=== PATIENT | male | born 1960 | race Caucasian/White ===

== ENCOUNTER 2023-08-27 02:30 | Observation (INO) | payer MEDICARE, SELFPAY ==
[2023-08-27] VITALS (12 sets, daily range): BP systolic 129–181; BP diastolic 70–99; PULSE 77; O2SAT 98; BMI 33.5; BMI 31.8
[2023-08-27 00:45] LABS: Glucose - Point of Care 172 mg/dl (70-99)
[2023-08-27 00:57] LABS: % Basophils 0.6 % (0-2); % Eosinophils 2.1 % (0-6); % Immature Granulocytes 0.6 % (0-0.5); % Lymphocytes 33.4 % (20.5-51.1); % Monocytes 11.6 % (1.7-9.3); % Neutrophils 51.7 % (42.2-75.2); Absolute Eosinophils 0.1 10^3/uL (0-0.7); Absolute Lymphocytes 2.3 10^3/uL (1.2-3.4); Absolute Monocytes 0.8 10^3/uL (0.1-0.6); Absolute Neutrophils 3.5 10^3/uL (1.4-6.5); Hematocrit 46.3 % (39.0-52.0); Hemoglobin 15.7 g/dL (13.0-18.0); Mean Corp Hgb Conc. 33.9 g/dL (33.0-37.0); Mean Corpuscular Hgb 30.4 pg (27.0-31.0); Mean Corpuscular Volume 89.7 fL (80.0-94.0); Mean Platelet Volume 10.6 fL (7.4-10.4); Nucleated Red Blood Cells % 0 % (-); Platelet Count 200 10^3/uL (130-400); Red Blood Cell Count 5.16 10^6/uL (4.70-6.10); Red Cell Dist. Width 13.1 % (11.5-14.5); White Blood Cell Count 6.8 10^3/uL (4.8-10.8)
[2023-08-27 01:04] LABS: INR 1.06; PT 13.6 Sec (11.4-14.6)
[2023-08-27 01:05] LABS: APTT 32.4 Sec (23.4-35.0)
[2023-08-27 01:06] LABS: ALT (SGPT) 45 U/L (0-50); AST (SGOT) 28 U/L (17-59); Albumin 4.1 g/dl (3.5-5.0); Alkaline Phosphatase 99 U/L (38-126); Blood Urea Nitrogen 19 mg/dl (9-20); Calcium 9.9 mg/dl (8.4-10.2); Carbon Dioxide 26 mmol/L (22-30); Chloride 100 mmol/L (98-107); Glucose 198 mg/dl (70-99); Potassium 4.2 mmol/L (3.5-5.1); Sodium 137 mmol/L (135-145); Total Bilirubin 0.7 mg/dl (0.2-1.3); Total Protein 6.7 g/dl (6.3-8.2); eGFR > 60.00
[2023-08-27 01:18] LABS: Troponin I < 0.012 ng/ml
[2023-08-27] MEDS: ASPIRIN 325 MG PO (01:42)
--- NOTE | 2023-08-27 01:44 | ED.CVA ---
History of Present Illness
General
Chief Complaint: CVA/TIA Symptoms
Source: patient, spouse and previous hospital records
Exam Limitations: none
Time Seen by Provider: 08/27/23 00:36
Onset of Stroke Symptoms
Onset of symptoms known: Yes
Date of onset of symptoms: 08/26/23
Time of onset of symptoms: 23:40
Travel History
Have you had any contact with someone who has COVID-19?: No
Do you have any symptoms of coronavirus? Fever > 100 degrees, chills, cough, shortness of breath, sore throat, loss of taste or smell, muscle aches, or headache?: No
History of Present Illness
History of Present Illness:
This is a 62-year-old gentleman who has history of insulin requiring diabetes, hyperlipidemia, history of M�ni�re's disease with chronic dizziness, off balance issues as well as prior history of 'minor strokes'
Chronically maintained on Plavix and had been maintained on low-dose aspirin, but aspirin was discontinued sometime last year for unknown reason.
Tonight shortly after watching the grandma's with his patient got up and plan to go to his office to take his evening medications when he was noted to have abrupt onset of significant aphasia, word searching and garbled speech. He admits to
not feeling well but denies lateralizing weakness nor numbness. No headache. He denies dizziness nor lightheadedness. He then attempted to go to bed, ambulating upstairs and getting under the covers but continued with garbled speech and word
searching thus insisted that he get dressed and come to the hospital for further evaluation.
Dexcom blood sugar checked at home at 184.
Patient does tend to 'hold onto miguel' when he walks throughout the house but denies increased difficulty ambulating, denies swaying nor sense of falling.
Speech is moderately improved since arrival to the ED but not completely back to normal. The garbled difficult to understand speech has resolved but he continues with some word searching.
does note that her has had similar episodes of aphasia in the past, most recently perhaps 2 years ago and this is generally how his strokes have presented.
Past History
Past History
ED Past Medical History: CVA, GERD, IDDM and Other (Charcot foot, M�ni�re's disease, duodenal ulcer, MRSA, right eye blindness)
ED Past Surgical History: Appendectomy and Orthopedic
Social History
Tobacco: Non-smoker
Alcohol: None
Drug: None
Personal:
Living: with family
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
Family History
Family History: Other (No significant)
Phy Exam
Physical Exam
Physical Exam:
GENERAL: 62-year-old obese gentleman appears his stated age, bright and alert, pleasant, appears in no acute distress. He is noted to have mild word searching but speech is otherwise clear. is accompanying.
EYE: Right eye prosthesis. Left eye pupil is round and reactive at 4 mm, extraocular muscles intact. Visual garces of left eye appear intact.
NECK: Supple, nontender, no meningismus, no significant adenopathy. No JVD.
ENT: posterior pharynx is clear, oral mucosa is moist. No rhinorrhea. No facial asymmetry.
CARDIAC: Regular rate and rhythm. no murmur.
LUNGS: Clear breath sounds bilaterally, no acute respiratory distress, no wheezes/rales/rhonchi
ABDOMEN: Rotund, soft, nondistended, without focal tenderness, normoactive BS.
NEUROLOGICAL: Alert and oriented x3, cranial nerves II through XII grossly intact. Right eye prosthesis. Very mild intermittent word searching is noted. Motor strength is 5/5 bilaterally. Gross sensation is intact. Negative drift. DTRs are
symmetric. Toes are downgoing bilaterally.
SKIN: Warm and dry, normal color, skin intact. No rash.
MUSCULOSKELETAL: No C/C/E. peripheral pulses are full and equal b/l. No palpable tenderness.
PSYCH: Normal and appropriate interaction.
NIH Stroke Score
Level of Consciousness: 0 - Alert
LOC questions: 0-Answers both correctly
LOC Commands: 0-Performs both correctly
Best Gaze: 0-Normal
Visual Garces: 0=Normal, no visual loss
Facial palsy: 0=Normal, symmetrical
Motor - Right Arm: 0=No drift 10 seconds
Motor - Left Arm: 0=No drift 10 seconds
Motor - Right Le-No drift 5 seconds
Motor - Left Le-No drift 5 seconds
Limb Ataxia: 0-Absent
Sensation: 0-Normal
Best Language: 1-Mild aphasia
Dysarthria: 0-Normal
Extinction and Inattention: 0-No abnormality
Total Score:: 1
Course
Orders/Labs/Results
Orders:
Orders
08/27/23 00:42
Electrocardiogram (*1) Urgent
Reason for Study: Other
Other Reason for Exam: Possible Stroke
CT Head W/o Cont STROKE ALERT Urgent
Reason For Exam: cva
Bedside Glucose- Treatment ONCE
Cardiac Monitoring- Treatment ONCE
EKG- Treatment ONCE
IV Insert/Care/Rem.- Treatment PRN
Urinalysis Reflex To Culture Urgent
Date Specimen was Collected: 08/27/23
Time Specimen was Collected: 00:42
Vital Signs As Directed
Frequency: Other
Weight As Directed
Frequency: Once
Comment: ZERO STRETCHER SCALE FOR ACCURATE WEIGHT
O2 Therapy [RESP] Urgent
Titrate/Wean O2 to maintain O2 sat greater than (%): 93
Special Instructions: MAINTAIN CONTINUOUS O2 SATS > OR = 93%
08/27/23 00:43
Complete Blood Count/With Diff Urgent
Comprehensive Metabolic Panel Urgent
PTT Urgent
Prothrombin Time Urgent
Troponin I Urgent
08/27/23 00:54
CT Head/Neck Ang STROKE ALERT Urgent
Comment:
Reason For Exam: acute aphasia
08/27/23 01:36
Aspirin 325 mg PO NOW STA
Abnormal Lab Results
08/27/23 08/27/23
00:41 00:43
MPV 10.6 H fL
(7.4-10.4)
Absolute Monos (auto) 0.8 H 10^3/uL
(0.1-0.6)
Immature Gran % 0.6 H %
(0-0.5)
Monocytes % 11.6 H %
(1.7-9.3)
Glucose 198 H mg/dl
(70-99)
POC Glucose 172 H mg/dl
(70-99)
08/27/23 00:43
08/27/23 00:43
Vital Signs
Initial and Last Documented VS:
Initial Vital Signs
Temp Pulse Resp BP Pulse Ox
97.8 F 82 22 179/90 100
08/27/23 00:31 08/27/23 00:31 08/27/23 00:31 08/27/23 00:31 08/27/23 00:31
Last Documented Vital Signs
Temp Pulse Resp BP Pulse Ox
97.8 F 82 22 179/90 100
08/27/23 00:31 08/27/23 00:31 08/27/23 00:31 08/27/23 00:31 08/27/23 00:31
MDM/Problems Addressed
Differential Diagnosis Includes:
Patient presents with acute aphasia, initially reported garbled speech and significant word searching.
Aphasia has improved but has not completely resolved; he continues with mild word searching but overall improving even since arrival to the ED.
Initial NIH stroke scale of 1.
Plain CT of the head shows no acute findings. There is note of chronic small vessel ischemic disease and a small lacunar infarct in the right thalamus. Prosthetic right globe.
CTA of the head and neck is unremarkable.
Case discussed with neurology, Dr. Kinsey as speech is improving with only mild intermittent word searching and no significant dysarthria, no significant aphasia, patient is currently not a TNK candidate.
He is noted to be mildly hypertensive initially 179/90, improved to 168/90.
No indication for antihypertensive at this point.
Neurology does recommend initiation of full-strength aspirin tonight.
Will continue Plavix.
Will admit to hospitalist service.
Chronic conditions affecting care: DM and Neurological disorder
*Radiology
Radiology exam reviewed: radiology read reviewed
*Pulse Oximetry
Patient hypoxic: no
*EKG
Interpreted by ED Provider?: Yes
Interpretation: normal
Comparison EKG: no changes (Unchanged from previous August 12, 2021)
Rate: normal
Rhythm: sinus
Trimble: normal axis
Interval: first degree heart block
QRS Pattern: normal QRS
Ischemia: no ischemia
*Barber Apprentice Interpretation
Rate: normal
Interpretation: normal
Rhythm: sinus
*Critical Care Note
Total Time (30-74mins, 75-104mins- exclusive of procedures): Not Applicable
ED Attending Note
-
Portions of this chart may have been created with voice recognition software.� Occasional wrong word or��sound alike� substitutions may have occurred due to the inherent limitations of voice recognition software.
Discharge Plan
Departure
Patient Disposition: Admit
Date of Disposition: 08/27/23
Time of Disposition: 01:36
Admit to: Telemetry
Admit to doctor: Yudith
Presentation/result/management discussed w/ accepting MD/DO: Hospitalist
Condition: Fair
Discharge Problem:
TIA r/o CVA
Prescriptions:
No Action
atorvastatin 40 MG tablet
40 mg PO DAILY
pantoprazole 40 MG tablet,delayed release (DR/EC)
40 mg PO DAILY
Jardiance 10 MG tablet
5 mg PO DAILY
amitriptyline 50 MG tablet
50 mg PO HS
insulin glargine [Lantus Solostar U-100 Insulin] 300 UNITS/3 ML insulin pen
26 units SC HS
Patient Comments:
26-32
clopidogrel 75 MG tablet
75 mg PO DAILY
metformin 500 MG tablet extended release 24 hr
2,000 mg PO HS
doxycycline hyclate 100 MG capsule
100 mg PO Q12H Qty: 14 0RF
B12
500 mg PO DAILY
Ozempic 0.25 mg or 0.5 mg (2 mg/3 mL) Pen Injector
0.5 mg SC QWEEK
iron
65 mg PO DAILY
Referrals:
Quentin Wesley DO [Family Provider] -
Interventions
Interventions:
*Risk Screen - Suicide Last Done: 08/27/23 00:31
*General Assessment Last Done: 08/27/23 01:43
*Neglect/Abuse Screening Last Done: 08/27/23 00:31
*ED COVID-19 Vaccine History Last Done: 08/27/23 01:46
ED- Pulmonary Assessment Last Done: 08/27/23 01:38
ED- Neurological Assessment Last Done: 08/27/23 01:06
ED- Cardiac Assessment Last Done: 08/27/23 01:38
ED Swallowing Screen Last Done: 08/27/23 01:38
--- NOTE | 2023-08-27 01:55 | HPS.HSE ---
Family Physician
-
Family Physician: Quentin Wesley
Chief Complaint
-
abn speech
History of Present Illness
62M HX CVA( 2015, 2019) IDDM , HLD pw difficulty expressing words 1 hrs prior to arrival to ER.
Medical History
Past Medical History
Past Medical History: Reports Other
Additional Past Medical History:
HLD
IDDM
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
New CVA in Jul 11
Cardio exchanged LINQ device in Sep 12: no formal dx of Afib
Past Surgical History: Reports Other
Social History
Tobacco: Non-smoker
Alcohol: None
Family History
Family History: Not pertinent
Allergies / Home Medications
Allergies reflects when Allergies were last updated in [employer].
Home Medications with original date entered in [employer]
Allergy/Medication List:
Allergies
Allergy/AdvReac Type Severity Reaction Status Date / Time
No Known Allergies Allergy Verified 08/27/23 00:35
Home Medications
atorvastatin 40 mg tablet 40 mg PO DAILY High cholesterol 07/19/16
empagliflozin 10 mg tablet (Jardiance) 5 mg PO DAILY Diabetes 12/02/18
pantoprazole 40 mg tablet,delayed release 40 mg PO DAILY Gastrointestinal issue 12/02/18
amitriptyline 50 mg tablet 50 mg PO HS Sleep 06/23/20
insulin glargine 100 unit/mL (3 mL) subcutaneous pen (Lantus Solostar U-100 Insulin) 26 units SC HS Diabetes 06/23/20
clopidogrel 75 mg tablet 75 mg PO DAILY Blood clot prevention/tx 06/24/20
metformin 500 mg tablet,extended release 24 hr 2,000 mg PO HS Diabetes 10/16/20
doxycycline hyclate 100 mg capsule 100 mg PO Q12H #14 caps 10/18/20
B12 500 mg PO DAILY 01/09/23
iron 65 mg PO DAILY 01/09/23
semaglutide 0.25 mg or 0.5 mg (2 mg/3 mL) subcutaneous pen injector (Ozempic) 0.5 mg SC QWEEK 01/09/23
Review of Systems
-
Constitutional: Reports No Symptoms
EENT: Reports No Symptoms
Respiratory: Reports No Symptoms
Cardiac: Reports No Symptoms
Abdomen/GI: Reports No Symptoms
: Reports No Symptoms
Musculoskeletal: Reports No Symptoms
Skin: Reports No Symptoms
Neurological: Reports See HPI
Endocrine: Reports No Symptoms
Hematologic/Lymphatic: Reports No Symptoms
Psych: Reports No Symptoms
Physical Exam
Vital Signs
Vital Signs
Temp Pulse Resp BP Pulse Ox
97.8 F 82 22 179/90 100
08/27/23 00:31 08/27/23 00:31 08/27/23 00:31 08/27/23 00:31 08/27/23 00:31
Physical Exam
General: Well Developed, Well Nourished and No Apparent Distress
Laboratory Results
-
08/27/23 00:43
08/27/23 00:43
Laboratory Results
PT 13.6 Sec (11.4-14.6) 08/27/23 00:43
INR 1.06 08/27/23 00:43
APTT 32.4 Sec (23.4-35.0) 08/27/23 00:43
Total Bilirubin 0.7 mg/dl (0.2-1.3) 08/27/23 00:43
AST 28 U/L (17-59) 08/27/23 00:43
ALT 45 U/L (0-50) 08/27/23 00:43
Alkaline Phosphatase 99 U/L (38-126) 08/27/23 00:43
Troponin I < 0.012 ng/ml 08/27/23 00:43
Data Reviewed
-
CT Scan: Report Reviewed by me
Lab Data: Labs Reviewed by me
Old Records: Reviewed
Impression/Plan
-
Reviewed VS: BP 180/90
PE
Gen: NAD
HEENT: symmetric face
Neck: supple
Lungs: CTA
Cor: RRR S1 S2
Abdomen: benign exam
IMAGING SERVICES DIRECTOR: AAO3, NFND
MS: no edema
Psych: nl mood and affect
Data
nl CBC
nl CMP
NEG TPNI
BG 198
HCT: No acute process
NEG H& N CTA
EKG
NSR w 1st degree AVB
04/03/23 ECHO
LVEF 50-55
Indeterminate. diastolic function
last hospitalist admission 10/15/20- 10/18/20
DX: Diabetic foot wound of left foot third toe status post amputation incidental blood culture positive.
ASSESSMENT & PLAN
Acute word finding difficulty and expressive speech - nearly resolved
Not TNK candidate per Neuro
TIA r/o CVA.
NEG HCT NEG H & N CTA
recently placed MRI�compatible�new�LINQ�
HX CVA ' and
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
Then new CVA in Jul 11
s/p LINQ placement with exchange of device in - no formal Dx of AF
- MRI brain in AM
- Not TNK candidate due to rapidly resoled Sxs
- cont ASA
- Neuro consulted
HTN
- add IV Hydralazine 5 mg q^hr PRN if SBP > 165 DBP > 110
IDDM
- cont. SCRAP BURNER Lantus
- add ISS low
- Held Metformin
HLD on Atorvastatin
Class II Obesity
DVT Px: SCD
Code: Full
Obs TLM
[2023-08-27 02:02] LABS: Urine Albumin Negative (Neg - Trace); Urine Bilirubin Negative (Negative); Urine Character Clear (Clear); Urine Color Yellow; Urine Glucose 2+ (Negative); Urine Ketone Negative (Negative); Urine Leukocyte Negative (Negative); Urine Nitrite Negative (Negative); Urine Occult Blood Negative (Negative); Urine Urobilinogen Negative (Neg - 1+)
[2023-08-27 06:34] LABS: Hematocrit 42.6 % (39.0-52.0); Hemoglobin 14.7 g/dL (13.0-18.0); Mean Corp Hgb Conc. 34.5 g/dL (33.0-37.0); Mean Corpuscular Hgb 29.9 pg (27.0-31.0); Mean Corpuscular Volume 86.6 fL (80.0-94.0); Mean Platelet Volume 10.4 fL (7.4-10.4); Platelet Count 195 10^3/uL (130-400); Red Blood Cell Count 4.92 10^6/uL (4.70-6.10); Red Cell Dist. Width 13.2 % (11.5-14.5); White Blood Cell Count 7.5 10^3/uL (4.8-10.8)
[2023-08-27 06:52] LABS: Blood Urea Nitrogen 16 mg/dl (9-20); Calcium 9.1 mg/dl (8.4-10.2); Carbon Dioxide 25 mmol/L (22-30); Chloride 104 mmol/L (98-107); Estimated Creatinine Clearance > 125 ml/min; Glucose 113 mg/dl (70-99); HDL Cholesterol 37 mg/dl; LDL Cholesterol, Calculated 42 mg/dl; Potassium 4.2 mmol/L (3.5-5.1); Sodium 134 mmol/L (135-145); Total Cholesterol 103 mg/dl (50-199); Triglyceride 123 mg/dl (10-149); Very Low Density Lipoprotein 24 mg/dl (0-30); eGFR > 60.00
--- NOTE | 2023-08-27 07:25 | W.PN.HOSP.TC ---
Addendum entered and electronically signed by Jocelyne Rich MD 08/27/23 16:55:
Addendum
MRI came back with no acute stroke. Discussed with neurology. Okay to go home. Discussed with the patient. He feels back to normal. I reached out to Dr. Lopez's office and updated them to make a sooner appointment. Patient had long-term heart
monitor with no recorded arrhythmias.
Discussed with nursing staff
Total discharge time spent to see the patient, examine the patient on the floor, review data and lab results, discuss treatment plan with patient and nursing staff around 65 minutes.
Original Note:
Today's Communication/Plan
-
.
Assessment / Plan
Assessment / Plan
Physical Exam
-
General: Well Developed and No Apparent Distress
HEENT: Normocephalic, Atraumatic, Moist Mucous Membranes.
Respiratory: Clear to Auscultation
Cardiac: Regular Rhythm and S1/S2; Negative Murmur, Rub or Gallop
GI: Soft, Nontender, Nondistended and Normal Bowel Sounds.
Rectal: No rectal bleeding noted.
Musculoskeletal: No Clubbing, No Cyanosis and No Edema
Skin: Negative Rash
Neuro: Awake, Alert, Oriented, AO x 3 and Nonfocal/Grossly Intact
Psych: Calm
# Acute�word finding difficulty�and expressive speech -
Seems to resolve
Hx of strokes in the past
TIA r/o CVA.
NEG HCT NEG H & N CTA�
HGB A1C 7.1
recently placed MRI�compatible�new�LINQ�
HX� CVA and
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
�s/p LINQ placement with exchange of device in - no formal Dx of AF
- MRI brain� today
- Not TNK candidate due to rapidly resoled Sxs
- cont ASA. Appreciate neurology help
# hyponatremia, mild
# Primary HTN
- add IV Hydralazine 5 mg q^hr PRN if SBP > 165� DBP > 110
IDDM
- cont. CHARGE HISTOTECHNOLOGIST Lantus
- added ISS low
- Held Metformin
HLD on Atorvastatin
Class II Obesity
Total time spent to see the patient, examine the patient on the floor, review data and lab results, discuss treatment plan with patient and nursing staff around 55 minutes
Anticipated Discharge: Within 24 hours
Subjective/Interval History
-
Date of Service: August 27, 2023
He feels better, back to normal
no dysarthria noted
no chest pain or sob
Objective Data
-
Labs:
Laboratory Results
08/27/23 08/27/23
00:43 05:55
WBC 6.8 7.5
Hgb 15.7 14.7
Hct 46.3 42.6
Plt Count 200 195
PT 13.6
INR 1.06
APTT 32.4
Sodium 137 134 L
Potassium 4.2 4.2
Chloride 100 104
Carbon Dioxide 26 25
BUN 19 16
Creatinine 0.9 0.8
Glucose 198 H 113 H
Calcium 9.9 9.1
Total Bilirubin 0.7
AST 28
ALT 45
Alkaline Phosphatase 99
Vital Signs:
Vital Signs
Temp Pulse Resp BP Pulse Ox
97.4 F 67 20 169/86 97
08/27/23 03:29 08/27/23 04:22 08/27/23 03:29 08/27/23 04:22 08/27/23 03:29
I&O
08/26/23 08/27/23 08/28/23
06:59 06:59 06:59
Intake Total 240 / 240
Balance 240 / 240
[2023-08-27 07:36] LABS: Glucose - Point of Care 103 mg/dl (70-99)
[2023-08-27] MEDS: NOVOLOG FLEXPEN-LOW RESISTANCE SC (07:47)
--- NOTE | 2023-08-27 08:17 | CON.NEURO4 ---
Addendum entered and electronically signed by Sarath Kinsey MD 08/27/23 15:16:
MRI brain reviewed no acute infarct:
Presumed TIA of the left hemisphere. Not concerned this is a manifestation of the meningioma which is stable. no significant carotid stenosis. Treated with medical therapies with DAPT and then return to clopidogrel after 3 weeks of DAPT therapy.
Keep the same dose of atorvastatin. No further workup from my perspective
Addendum entered and electronically signed by Sarath Kinsey MD 08/27/23 12:04:
I saw and evaluated the patient I reviewed the note by Arianna Calderon agree to find the following comments:
62-year-old male with a past ministry of TIA, M�ni�re's disease, prosthetic right eye, diabetes, previous strokes on MRI brain, frontal meningioma, hypertension presented to hospital with around 40 minutes of expressive aphasia happening last night
around 11 PM.
Patient has been compliant with home clopidogrel, no recent illnesses and no previous similar instances of speech difficulty. Patient feels back to normal with his speech now, did not have any headache during the event or currently, did not have
any unilateral facial weakness paresthesia or limb weakness or paresthesia during speech difficulty issues.
He has not been exercising quite as much since sometimes vertigo for M�ni�re's disease and his knee pains will interfere with the ability to walk. Reports having had diabetes for many years.
Neurologic examination unremarkable
CTA of the head and neck not show any significant carotid or intracranial stenosis no occlusion.
Assessment: Very likely TIA versus less likely minor stroke with resolution of symptoms. Very likely atherosclerotic versus small vessel disease mechanism given risk factors of diabetes, hypertension, MRI findings of lacunar and small vessel
disease subcortical strokes.
Recommendations
-Keep atorvastatin at 40 mg daily his LDL is 42
-Would place on DAPT therapy for 21 days, if MRI brain is negative for acute stroke would go back to the clopidogrel after 21 days, if positive for acute stroke could still consider clopidogrel versus Brilinta for antiplatelet therapy following 21
days of DAPT
-Monitor on cardiac telemetry check transthoracic echocardiogram
-Patient had had 2 previous Linq monitors and has not found evidence of atrial fibrillation so would not recommend pursuing further cardiac monitoring unless he develops significant cardiac symptoms
-Goal normotension
-Neurologic checks NIH stroke scale
-Encouraged increased amount of exercise
Will follow
Original Note:
Documented by User: Arianna Love NP 08/27/23 11:33
Consultation - Neurology 4
-
CONSULTING PHYSICIAN: Maxine Kinsey MD
REFERRING PHYSICIAN: Hospitalists/Dr. Zurita
DICTATED BY: KAREN Kirby
DATE/TIME OF REQUEST: 08/27/23
DATE/TIME OF CONSULTATION: 08/27/23
Reason for Consultation: TIA/CVA
History of Present Illness:
This is a 62-year-old right-handed male who has presented to the hospital with expressive aphasia. Patient reports feeling in his usual state all day yesterday (08/27/23). At 2300, he and his went to get ready for bed and he suddenly wasn't able
to get his words out. He reports having difficultly articulating his thoughts, and his reported that his speech was garbled. This persisted, prompting his to bring him to the ER for evaluation. On arrival to the ER about 45 minutes later,
his speech was markedly improved with some residual word finding issues. CT head and CTA head/neck were obtained and were negative for any acute abnormalities. NIHSS was 1 for mild aphasia, he was not a candidate for TNK/IAT due to NIHSS<6 and no
LVO. Today, he reports feeling back at his baseline. He denies any headache, dizziness, speech/swallow difficulty, numbness, weakness, chest pain, palpitations, and shortness of breath.
He has a history of several strokes in the past. In 03/2016 he had a slight change to his chronic Meniere's vertigo including nausea, and was found to have an acute right parietal ischemic infarct, in addition to chronic left dominga ischemic infarcts.
He was started on aspirin at that time. In 07/2017 he had transient LLE weakness/clumsiness and MRI brain demonstrated a right thalamic infarct. In 06/2020 he had an episode of garbled speech lasting several days and MRI brain showed an new but old
right frontal lobe ischemic infarct in addition to a subacute right frontal ischemic infarct. In August 2021 he had a syncopal type event and MRI brain demonstrated small subacute lacunar left frontal centrum semioval infarcts. At some point
during these events he was switched from aspirin to clopidogrel. He has had two LINQ monitors placed since 2015, with no evidence of arrhythmia. He endorses that he has Meniere disease and chronic left foot osteomyelitis/Charcot leslie foot and this
has made his stroke symptoms in the past challenging to detect. He denies missing any doses of his Plavix.
Past Medical History: Left frontal sorensen radiata lacunar stroke, numerous chronic pontine ischemic strokes, right frontal meningioma, lumbar spine cyst, HTN, HLD, IDDM, cardiomyopathy, vasovagal syncope, left renal cancer, hepatic stenosis,
colonic adenoma, BASHIR (cpap), Meniere disease, osteomyelitis left foot, Charcot Leslie Tooth LLE, esophagitis, right eye CRAO/infection s/p removal, PVD
Surgical History: LINQ x2, Right eye removal/artificial eye, left foot toe amputations, nephrectomy, appendectomy
Family History: Father- TIA's
Social History: Denies tobacco and illicit drug use. Rare alcohol. Retired from [employer]. Lives with , has three sons.
Allergies: No known allergies.
Home Medications: See below.
Review of Symptoms:
Patient denies any fever, headache, chest pain, shortness of breath, GI or symptoms.
�Per the HPI.�All systems are reviewed negative except above.
Physical Exam:
The patient is afebrile, abdomen is nondistended, breathing is unlabored, skin is warm and dry, no edema. Left foot deformity/toe amputations.
NIH Stroke Scale:
I performed the NIH stroke scale on the patient on 08/27/23 at 0830. The patient scored 0 points on the NIH stroke scale assessment, which were assigned as follows: See below.
Neurologic Examination:
The patient is awake, alert and oriented x 3. He is able to follow commands and answer questions appropriately. Some repetitive story telling. There is no aphasia or dysarthria. On cranial nerve assessment, left pupils is 3 mm bilateral, round and
reactive to light and accommodation. Right eye is artificial. Visual garces are full in the left eye. Extraocular movements are intact in the left eye, reduced in all directions in artificial right eye. Facial sensations are intact and bilaterally
symmetrical, there is no facial asymmetry. Hearing is severely diminished bilaterally to normal conversation volume (does not have hearing aids with him). Tongue palate and uvula are midline. Sternocleidomastoid strengths are full bilaterally. Motor
strengths are 5/5 bilateral upper and lower extremities on medical research Native scale. Left plantar/dorsiflexion severely reduced. There is no drift or involuntary movement noted. Deep tendon reflexes are 1+ bilateral upper and lower
extremities, absent left Achilles, and Babinski is absent bilaterally. Sensations of pain, temperature and vibration are moderately reduced in distal bilateral lower extremities. There was no extinction noted on double simultaneous stimulation.
Coordination is intact by finger to nose bilaterally.
Lab Results: See below.
Neuro Imaging:
1. CT Head 08/26/23: No acute intracranial abnormality noted. ASPECTS Score: 10.
2. CTA Head/Neck 08/26/23: No significant vascular occlusion, aneurysm or dissection. 1.1 cm right frontal extra-axial probable meningioma.
Differentials for the patient's presentation include:
1. Small acute stroke or TIA very likely.
2. Stable right frontal meningioma.
3. Meneire disease.
Patient has the following risk factors for their symptoms: Hx strokes, HTN, HLD, IDDM
IV Tenecteplase/IAT candidacy: Not a candidate due to NIHSS 0.
Recommendations:
-Continue DAPT with aspirin 81mg daily and clopidogrel 75mg daily for 21 days. After 21 days, discontinue aspirin and continue patient's home clopidogrel 75mg daily indefinitely.
-Permissive hypertension SBP<220, DBP<120 until 2300 today (08/27/23), then goal normotension.
-MRI brain noncontrast ordered/pending
-LDL goal <70. LDL is 42. Continue home atorvastatin 40mg daily.
-Goal normoglycemia, hbA1c is 7.1.
-NIHSS and neurological checks per unit guidelines.
-Provide patient with stroke education packet.
-PT/OT/ST evaluations.
-DVT prophylaxis.
-Will follow pending results. Patient should follow-up with Neurology, may see the BLOOD DONOR UNIT ASSISTANT or one of the physicians.
Discussed patient care with: Dr. Kinsey, the patient
Vital Signs and Labs
-
Vital Signs and Labs:
Vital Signs
Temp Pulse Resp BP Pulse Ox
98.2 F 72 18 129/70 97
08/27/23 07:30 08/27/23 07:30 08/27/23 07:30 08/27/23 07:30 08/27/23 07:30
Lab Results
08/27/23 05:55
08/27/23 05:55
PT 13.6 Sec (11.4-14.6) 08/27/23 00:43
INR 1.06 08/27/23 00:43
APTT 32.4 Sec (23.4-35.0) 08/27/23 00:43
Sodium 134 mmol/L (135-145) L 08/27/23 05:55
Potassium 4.2 mmol/L (3.5-5.1) 08/27/23 05:55
BUN 16 mg/dl (9-20) 08/27/23 05:55
Glucose 113 mg/dl (70-99) H 08/27/23 05:55
Calcium 9.1 mg/dl (8.4-10.2) 08/27/23 05:55
LDL Cholesterol, Calc 42 mg/dl 08/27/23 05:55
Medications
-
Active Medications
Generic Name Dose Route Start Last Admin
Trade Name Freq PRN Reason Stop Dose Admin
Acetaminophen 650 mg 08/27/23 03:20
Acetaminophen 650 Mg Rectal Suppository RECTAL 09/24/23 03:19
Q4HPRN PRN
GERARDO, mild pain, or temp >100.4F
Acetaminophen 650 mg 08/27/23 03:20
Acetaminophen 325 Mg Tablet PO 09/24/23 03:19
Q4HPRN PRN
GERARDO, mild pain, or temp >100.4F
Aspirin 81 mg 08/27/23 08:00 08/27/23 08:29
Aspirin 81 Mg Chewable Tablet PO 09/24/23 07:59 81 mg
DAILY MARIO Administration
Atorvastatin Calcium 40 mg 08/27/23 08:00 08/27/23 08:29
Atorvastatin (Lipitor) 40 Mg Tablet PO 09/24/23 07:59 40 mg
DAILY MARIO Administration
Dextrose 12.5 grams 08/27/23 03:20
Dextrose 50% (0.5 Grams/Ml) 50 Ml Syringe IV 09/24/23 03:19
[id number] PRN
hypoglycemia
Protocol
Glucagon 1 mg 08/27/23 03:20
Glucagon 1 Mg Vial IM 09/24/23 03:19
PRN PRN
hypoglycemia
Protocol
Hydralazine HCl 5 mg 08/27/23 04:02
Hydralazine 20 Mg/Ml Vial IV 09/24/23 04:01
Q4HPRN PRN
SBP >170
Insulin Glargine 26 units/ 0.26 mls @ 0 mls/hr 08/27/23 22:00
Device SC 09/24/23 21:59
HS MARIO
As Directed
Insulin Aspart 0 units 08/27/23 07:30 08/27/23 07:47
Insulin Aspart Low Resistance 300 Units/3 Ml Pen.Injctr SC 09/24/23 07:29 Not Given
AC MARIO
Protocol
Sodium Chloride 0 flush 08/27/23 04:00
Sodium Chloride 0.9% (Flush) Syringe IV 09/24/23 03:59
PER PROTOCOL MARIO
Home Medications
Medication Instructions Recorded
atorvastatin 40 mg tablet 40 mg PO DAILY High cholesterol 07/19/16
empagliflozin 10 mg tablet 5 mg PO DAILY Diabetes 12/02/18
(Jardiance)
pantoprazole 40 mg tablet,delayed 40 mg PO DAILY Gastrointestinal 12/02/18
release issue
amitriptyline 50 mg tablet 50 mg PO HS Sleep 06/23/20
insulin glargine 100 unit/mL (3 26 units SC HS Diabetes 06/23/20
mL) subcutaneous pen (Lantus
Solostar U-100 Insulin)
clopidogrel 75 mg tablet 75 mg PO DAILY Blood clot 06/24/20
prevention/tx
metformin 500 mg tablet,extended 2,000 mg PO HS Diabetes 10/16/20
release 24 hr
doxycycline hyclate 100 mg capsule 100 mg PO Q12H #14 caps 10/18/20
B12 500 mg PO DAILY 01/09/23
iron 65 mg PO DAILY 01/09/23
semaglutide 0.25 mg or 0.5 mg (2 0.5 mg SC QWEEK 01/09/23
mg/3 mL) subcutaneous pen injector
(Ozempic)
NIH Stroke Score
Subsequent NIH Scale
Date of Subsequent NIH Scale: 08/27/23
Time of Subsequent NIH Scale: 08:30
NIH Stroke Score
Level of Consciousness: 0 - Alert
LOC Questions: 0-Answers both correctly
LOC Commands: 0-Performs both correctly
Best Horizontal Gaze: 0-Normal
Visual Garces: 0=Normal, no visual loss
Facial Palsy: 0=Normal, symmetrical
Motor - Right Arm: 0=No drift 10 seconds
Motor - Left Arm: 0=No drift 10 seconds
Motor - Right Le-No drift 5 seconds
Motor - Left Le-No drift 5 seconds
Limb Ataxia: 0-Absent
Sensation: 0-Normal
Best Language: 0-No aphasia
Dysarthria: 0-Normal
Extinction and Inattention: 0-No abnormality
Total Score:: 0

Documented by User: Sarath Kinsey MD 08/27/23 11:59
NIH Stroke Score
NIH Stroke Score
Total Score:: 0
[2023-08-27] MEDS: LOW STRENGTH ASPIRIN 81 MG PO (08:29)
[2023-08-27] MEDS: LIPITOR 40 MG PO (08:29)
[2023-08-27 09:00] LABS: Glycohemoglobin (HgbA1c) 7.1 % (4.0-5.6)
--- NOTE | 2023-08-27 10:45 | PTOTSP ---
Speech Language Pathology
Pt seen for speech/language evaluations. No dysarthria or dysphonia noted. Language evaluated via the Quick Aphasia Battery (QAB), form 1A. Pt with an overall QAB score of 9.89 indicative of no aphasia. Pt with delay in naming 'hammock' and
answering 1 yes/no questions with no other difficulties noted.
Pt also seen for clinical bedside swallow evaluation. P.O. trials of regular solids and thin liquids provided. Adequate mastication, bolus formation, and A-P transit noted with no oral residue. No overt signs of aspiration.
Recommend:
(1) Continue regular solids/thin liquids
(2) General aspiration precautions
(3) Meds as tolerated
(4) If MRI negative, TABLE GAMES DEALER to sign off. If positive for acute process, will follow.
[2023-08-27 11:34] LABS: Glucose - Point of Care 174 mg/dl (70-99)
--- NOTE | 2023-08-27 12:08 | PTOTSP ---
The patient is independent with ambulation and elevations, offering no concerns regarding his mobility and feels that he is back to baseline. No PT needs identified at this time, will sign off.
[2023-08-27] MEDS: PLAVIX 75 MG PO (12:16)
[2023-08-27] MEDS: NOVOLOG FLEXPEN-LOW RESISTANCE 1 UNITS SC (13:29)
--- NOTE | 2023-08-27 15:29 | CM ---
Reviewed the chart notes and spoke with the patient at the bedside. The patient was admitted under observational status. The observational letter was provided and explained. The patient had no questions with regards to the letter.
The patient resides with his spouse in a two story home with two steps to enter. The patient has a CPAP machine. The patient has had [facility] in the past. The patient confirmed his pharmacy of choice is the [address] The
patient is being discharged to home today. The patient's spouse will provide transportation. CM continues to be available to patient/family and is monitoring medical plan for needs at discharge.
Plan: Discharge to home today. No needs.
--- NOTE | 2023-08-27 15:41 | W.DCSUMMARY ---
Discharge Summary
Discharge Data
Date of Admission: 08/27/23
Date of Discharge: 08/27/23
-
Pending Results: No
Hospital Course
62 years old male with past medical history of transient ischemic attack, M�ni�re's disease, prosthetic right eye, diabetes and previous strokes on brain imaging presented with short time of expressive aphasia that happened the night before coming
to the hospital. The episode lasted around 40 to 45 minutes. No similar episodes of speech difficulty in the past. No recent illness. No fever or chills. No headache. Patient was evaluated by neurology doctor. He had imaging studies of the
head including scan angiogram of the head and neck, magnetic resonance imaging of the brain that did not show acute findings. Neurology recommended to do dual antiplatelet therapy for 21 days and continue on Plavix. To continue same dose of statin
therapy. Patient remained hemodynamically stable. We updated his digital traffic coordinator office . No recurrent neurological deficits in the hospital. Patient was discharged in a stable condition.
Discharge Plan
-
Patient Disposition: Home (Routine Discharge)
Discharge Diagnosis/Procedures: Transient ischemic attack. Take aspirin and Plavix for 21 days then continue with Plavix only
Condition: Fair
Diet: Low Fat
Referrals:
Sarath Kinsey MD [Active] - in one month
Tim Lopez MD [Active] - in one to two weeks (For heart monitor )
Quentin Wesley DO [Family Provider] -
Prescriptions:
New
aspirin [Children's Aspirin] 81 mg Tablet,Chewable
81 mg PO DAILY Qty: 30 0RF
Continued
atorvastatin 40 MG tablet
40 mg PO DAILY
pantoprazole 40 MG tablet,delayed release (DR/EC)
40 mg PO DAILY
Jardiance 10 MG tablet
5 mg PO DAILY
amitriptyline 50 MG tablet
50 mg PO HS
insulin glargine [Lantus Solostar U-100 Insulin] 300 UNITS/3 ML insulin pen
26 units SC HS
Patient Comments:
26-32
clopidogrel 75 MG tablet
75 mg PO DAILY
metformin 500 MG tablet extended release 24 hr
2,000 mg PO HS
B12
500 mg PO DAILY
Ozempic 0.25 mg or 0.5 mg (2 mg/3 mL) Pen Injector
0.5 mg SC QWEEK
iron
65 mg PO DAILY
Discontinued
doxycycline hyclate 100 MG capsule
100 mg PO Q12H Qty: 14 0RF
Discharge Orders:
Discharge Patient (As Directed); Ordered 08/27/23
Ordered By: Jocelyne Rich
Discharge Date and Time
Discharge Date/Time: 08/27/23 16:21
== END 2023-08-27 16:21 | disposition home or self-care (01) ==
LOC: 2 NORTH 02:30
PROVIDERS: ADMITTING PHYSICIAN Internal Medicine; ATTENDING PHYSICIAN Internal Medicine; CONSULT PHYSICIAN Student in an Organized Health Care Education/Training Program; EMERGENCY PHYSICIAN Emergency Medicine; FAMILY PHYSICIAN Internal Medicine
DX: G45.9 Transient cerebral ischemic attack, unspecified (principal); R47.01 Aphasia; E11.9 Type 2 diabetes mellitus without complications; E78.5 Hyperlipidemia, unspecified; R42 Dizziness and giddiness; I10 Essential (primary) hypertension; E87.1 Hypo-osmolality and hyponatremia; E66.9 Obesity, unspecified; K21.9 Gastro-esophageal reflux disease without esophagitis; H54.61 Unqualified visual loss, right eye, normal vision left eye; Z79.4 Long term (current) use of insulin; Z68.31 Body mass index [BMI] 31.0-31.9, adult; Z79.84 Long term (current) use of oral hypoglycemic drugs; Z79.02 Long term (current) use of antithrombotics/antiplatelets; Z79.85 Long-term (current) use of injectable non-insulin antidiabetic drugs; Z86.73 Personal history of transient ischemic attack (TIA), and cerebral infarction without residual deficits
CPT/HCPCS: 70450; 70496; 70498; 70551; 80048; 80053; 80061; 81003; 82962; 83036; 84484; 85025; 85027; 85610; 85730; 92523; 92610; 93005; 93306; 97162; 97166; 99285; G0378; Q9967

== ENCOUNTER 2023-11-07 18:55 | Inpatient (IN) | payer MEDICARE, SELFPAY ==
[2023-11-07 14:08] VITALS: BP 137/85
[2023-11-07 14:27] LABS: % Basophils 0.4 % (0-2); % Eosinophils 0.5 % (0-6); % Immature Granulocytes 0.7 % (0-0.5); % Lymphocytes 10.7 % (20.5-51.1); % Monocytes 9.5 % (1.7-9.3); % Neutrophils 78.2 % (42.2-75.2); Absolute Basophils 0.1 10^3/uL (0-0.2); Absolute Eosinophils 0.1 10^3/uL (0-0.7); Absolute Immature Granulocytes 0.1 10^3/uL (0-0.05); Absolute Lymphocytes 1.5 10^3/uL (1.2-3.4); Absolute Monocytes 1.3 10^3/uL (0.1-0.6); Absolute Neutrophils 10.8 10^3/uL (1.4-6.5); Hemoglobin 14.3 g/dL (13.0-18.0); Mean Corp Hgb Conc. 33.3 g/dL (33.0-37.0); Mean Corpuscular Hgb 28.9 pg (27.0-31.0); Mean Platelet Volume 10.5 fL (7.4-10.4); Nucleated Red Blood Cells % 0 % (-); Platelet Count 269 10^3/uL (130-400); Red Blood Cell Count 4.94 10^6/uL (4.70-6.10); White Blood Cell Count 13.8 10^3/uL (4.8-10.8)
[2023-11-07 15:06] LABS: ALT (SGPT) 28 U/L (0-50); AST (SGOT) 22 U/L (17-59); Albumin 4.2 g/dl (3.5-5.0); Alkaline Phosphatase 114 U/L (38-126); Blood Urea Nitrogen 15 mg/dl (9-20); Calcium 9.5 mg/dl (8.4-10.2); Carbon Dioxide 25 mmol/L (22-30); Chloride 99 mmol/L (98-107); Glucose 190 mg/dl (70-99); Potassium 4.5 mmol/L (3.5-5.1); Sodium 133 mmol/L (135-145); Total Bilirubin 1.1 mg/dl (0.2-1.3); Total Protein 7.2 g/dl (6.3-8.2); eGFR > 60.00
[2023-11-07 16:30] VITALS: BMI 31.8
--- NOTE | 2023-11-07 16:35 | ED.MUSCINJ ---
HPI-Injury
General
Chief Complaint: Musculo-Skeletal Complaint
Source: patient
Exam Limitations: none
Time Seen by Provider: 11/07/23 16:20
Travel History
Have you had any contact with someone who has COVID-19?: No
Do you have any symptoms of coronavirus? Fever > 100 degrees, chills, cough, shortness of breath, sore throat, loss of taste or smell, muscle aches, or headache?: No
History of Present Illness-Injury
Initial Injury comments:
62-year-old male insulin-dependent diabetic with history of neuropathy to the feet presents with worsening infection of the right middle toe. He has been followed by podiatry who sent him in today. He has been on doxycycline 100 mg twice a day.
He denies a fever. She denies any pain to the foot. Instructions from podiatry from today's visit were to come to the hospital and get admitted for surgical intervention. He has no other complaints at this time.
Past History
Past History
ED Past Medical History: CVA, GERD, IDDM and Other (Charcot foot, M�ni�re's disease, duodenal ulcer, MRSA, right eye blindness)
ED Past Surgical History: Appendectomy and Orthopedic
Social History
Tobacco: Non-smoker
Alcohol: None
Drug: None
Personal:
Living: with family
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
Family History
Family History: Other (No significant)
Phy Exam
Physical Exam
Physical Exam:
General: Well-appearing male no acute respiratory distress
HEENT: Normocephalic atraumatic
Heart: Regular rate and rhythm no murmurs
Lungs: Clear to auscultation bilaterally no wheezing
Skin: Erythema fluctuance and ecchymosis noted in the right middle toe. There is a wound on the plantar surface of the toe that measures 1 cm in diameter that is approximately 1 cm deep. There is a mild foul odor. There is subtle erythema noted
to the dorsal aspect spreading into the midfoot slightly.
Vascular: Right foot is warm to the touch palpable pulse dorsally
Neurologic: Decreased sensation to light touch right
Injury Course
Orders/Labs/Results
Orders:
Orders
11/07/23 14:13
Foot, Right 3 View [CR Foot - Right Min 3 Views] Urgent
Comment: concern for infection
Reason For Exam: pain
11/07/23 14:18
CMP [Comprehensive Metabolic Panel] Urgent
Complete Blood Count/With Diff Urgent
11/07/23 16:32
Lactic Acid Urgent
Blood Culture Urgent
PROSPER Source: Blood/Venous
Specimen Description:
11/07/23 16:34
Blood Culture Urgent
PROSPER Source: Blood/Venous
Specimen Description:
Abnormal Lab Results
11/07/23
14:18
WBC 13.8 H 10^3/uL
(4.8-10.8)
MPV 10.5 H fL
(7.4-10.4)
Abs Immat Gran (auto) 0.1 H 10^3/uL
(0-0.05)
Absolute Neuts (auto) 10.8 H 10^3/uL
(1.4-6.5)
Absolute Monos (auto) 1.3 H 10^3/uL
(0.1-0.6)
Immature Gran % 0.7 H %
(0-0.5)
Neutrophils % 78.2 H %
(42.2-75.2)
Lymphocytes % 10.7 L %
(20.5-51.1)
Monocytes % 9.5 H %
(1.7-9.3)
Sodium 133 L mmol/L
(135-145)
Glucose 190 H mg/dl
(70-99)
11/07/23 14:18
11/07/23 14:18
MDM/Problems Addressed
Differential Diagnosis Includes:
Right middle toe erythema. Considered cellulitis versus osteomyelitis versus both
X-rays of the right foot were obtained which I personally visualized demonstrate evidence of osteomyelitis of the right middle toe
Labs reviewed. There is white blood cell count of 13.8. Serum glucose is 199. Patient is failing outpatient treatment with doxycycline. Infection getting worse now with osteomyelitis. Will admit to hospital. Currently he is stable.
*Critical Care Note
Total Time (30-74mins, 75-104mins- exclusive of procedures): Not Applicable
ED Attending Note
-
Portions of this chart may have been created with voice recognition software.� Occasional wrong word or��sound alike� substitutions may have occurred due to the inherent limitations of voice recognition software.
Discharge Plan
Departure
Patient Disposition: Admit
Date of Disposition: 11/07/23
Time of Disposition: 16:37
Admit to: Telemetry
Presentation/result/management discussed w/ accepting MD/DO: Hospitalist
Discharge Problem:
Osteomyelitis
Prescriptions:
No Action
atorvastatin 40 MG tablet
40 mg PO DAILY
pantoprazole 40 MG tablet,delayed release (DR/EC)
40 mg PO DAILY
Jardiance 10 MG tablet
5 mg PO DAILY
amitriptyline 50 MG tablet
50 mg PO HS
insulin glargine [Lantus Solostar U-100 Insulin] 300 UNITS/3 ML insulin pen
26 units SC HS
Patient Comments:
26-32
clopidogrel 75 MG tablet
75 mg PO DAILY
metformin 500 MG tablet extended release 24 hr
2,000 mg PO HS
B12
500 mg PO DAILY
Ozempic 0.25 mg or 0.5 mg (2 mg/3 mL) Pen Injector
0.5 mg SC QWEEK
iron
65 mg PO DAILY
aspirin [Children's Aspirin] 81 mg Tablet,Chewable
81 mg PO DAILY Qty: 30 0RF
Referrals:
Quentin Wesley DO [Family Provider] -
Interventions
Interventions:
*ED COVID-19 Vaccine History Last Done: 11/07/23 14:08
Discharge Date and Time
Print Language: VIET[place]
[2023-11-07 17:18] LABS: Lactic Acid 1.9 mmol/L (0.7-2.0)
--- NOTE | 2023-11-07 17:22 | HPS.HSE ---
Addendum entered and electronically signed by Stephanie Rivers MD 11/07/23 19:48:
I saw and examined the patient.
The CARDIOLOGY MANAGER or PA's note was reviewed and I agree with the note.
Comment:
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
starting 2 months ago.� On prophylactic doxycycline with hx MRSA and left foot osteo/toe amputations, right foot wound infection appeared to be worsening involving the neighboring toes.� Denies fever chills nausea vomiting diarrhea constipation.�
Patient was evaluated by Podiatry who referred patient for ED eval/admission for OR surgical debridement.� XR suggestive of Osteo.� MRI pending.� Patient otherwise reports feeling well.� Mild tachycardia leukocytosis noted but afebrile BP stable no
lactic acidosis.�
Physical Exam
General: No pallor, cyanosis, or jaundice.
HEENT: Throat clear. Normocephalic atraumatic. Right Prosthetic Eye noted
NECK: Supple. No JVD Carotid Bruits
RESPIRATORY: Lungs clear to auscultation. No crackles wheezes stridor
CVS: S1, S2 normal. RRR.� No murmur, rub or gallop.
ABDOMEN: Soft, non-tender. No distension. BS+/normal.
EXTREMITIES: Rt foot wound noted third toe with surrounding erythema swelling noted, noted left Charcot foot with no acute wounds noted.
PYTHON DEVELOPER: AOx3
#Right foot diabetic wound infection
N.p.o. after midnight for OR debridement by podiatry
Check MRI
Podiatry ID eval
Empiric antibiotics IV Vanco cefepime
Glycemic control
Reduced home insulin regimen in lieu of pending n.p.o. status as above
Eventual PT OT eval
Original Note:
Family Physician
-
Family Physician: Quentin Wesley
Chief Complaint
-
Right Foot Infection
History of Present Illness
Patient is a 62 y/o male with a past medical history of diabetes mellitus, neuropathy, hyperlipidemia, cerebrovascular accident, duodenal ulcer, gastroesophageal reflux disease, peripheral vascular disease, obstructive sleep apnea, carcinoma of the
left kidney, and methicillin-resistant staphylococcus aureus and osteomyelitis of the left foot who presents for right third toe infection that began about 2 months ago. His does his wound care and states that his toe is normally calloused and
scaly but noticed a new plantar ulcer about 2 weeks ago. She states that his toe started turning red on Sunday and became purple yesterday. The 2 adjacent toes and plantar aspect of his foot have started to turn red as well. Due to previous
infections of his left foot, he has been taking prophylactic doxycycline. He had an appointment with his administrative officer today and was sent to the hospital for surgical evaluation for probable osteomyelitis of the third toe. He denies pain, fever, sweats
or chills.
Medical History
Past Medical History
Past Medical History: Reports Other
Additional Past Medical History:
Diabetes Mellitus, Type II
Diabetic Neuropathy
Charcot Foot
Hyperlipidemia
GERD
M�ni�re's Disease
TIA/Stroke
Past Surgical History: Reports Other
Additional Past Surgical History:
Appendectomy
Left Renal Mass
Left Foot Surgery
Right Eye Enucleation
Social History
Tobacco: Non-smoker
Alcohol: None
Family History
Family History: Not pertinent
Allergies / Home Medications
Allergies reflects when Allergies were last updated in [employer].
Home Medications with original date entered in [employer]
Allergy/Medication List:
Allergies
Allergy/AdvReac Type Severity Reaction Status Date / Time
No Known Allergies Allergy Verified 11/07/23 14:09
Home Medications
atorvastatin 40 mg tablet 40 mg PO DAILY High cholesterol 07/19/16
pantoprazole 40 mg tablet,delayed release 40 mg PO DAILY Gastrointestinal issue 12/02/18
amitriptyline 50 mg tablet 50 mg PO HS Sleep 06/23/20
insulin glargine 100 unit/mL (3 mL) subcutaneous pen (Lantus Solostar U-100 Insulin) 26 units SC HS Diabetes 06/23/20
clopidogrel 75 mg tablet 75 mg PO DAILY Blood clot prevention/tx 06/24/20
metformin 500 mg tablet,extended release 24 hr 2,000 mg PO HS Diabetes 10/16/20
cyanocobalamin (vitamin B-12) 500 mcg tablet (Vitamin B-12) 500 mcg PO DAILY ##0 01/09/23
ferrous sulfate 325 mg (65 mg iron) tablet 325 mg PO DAILY ##0 01/09/23
semaglutide 0.25 mg or 0.5 mg (2 mg/3 mL) subcutaneous pen injector (Ozempic) 0.5 mg SC HURST 01/09/23
dapagliflozin propanediol 5 mg tablet (Farxiga) 5 mg PO DAILY 11/07/23
doxycycline hyclate 100 mg capsule 100 mg PO BID 11/07/23
meclizine 25 mg tablet 25 mg PO Q8H PRN vertigo/dizziness 11/07/23
Review of Systems
-
A 12 point ROS was completed and negative except as noted: Yes
Constitutional: Denies Fever or Chills
Respiratory: Denies Cough or Trouble Breathing
Cardiac: Denies Chest Pain or Palpitations
Abdomen/GI: Denies Abdominal Pain, Nausea or Vomiting
Physical Exam
Vital Signs
Vital Signs
Temp Pulse Resp BP Pulse Ox
98.1 F 110 20 137/85 100
11/07/23 14:08 11/07/23 14:08 11/07/23 14:08 11/07/23 14:08 11/07/23 14:08
Physical Exam
General: Comfortable and Conversant
HEENT: Anicteric and Moist mucous membranes
Respiratory: Clear and Non Labored Respirations
Cardiac: S1/S2 and Regular Rhythm
GI: Soft and Non Tender
Musculoskeletal: No Clubbing, No Cyanosis, No Edema and Other (Left Charcot Foot)
Skin: Warm, Dry and Other (Moderate erythema left 2nd, 3rd and 4th toes. Open wound Left 3rd toe. Mild streaking of erythema up the foot)
Neuro: Awake, Alert, Oriented and Nonfocal/grossly intact
Psych: Calm
Laboratory Results
-
11/07/23 14:18
11/07/23 14:18
Laboratory Results
Lactic Acid 1.9 mmol/L (0.7-2.0) 11/07/23 16:35
Total Bilirubin 1.1 mg/dl (0.2-1.3) 11/07/23 14:18
AST 22 U/L (17-59) 11/07/23 14:18
ALT 28 U/L (0-50) 11/07/23 14:18
Alkaline Phosphatase 114 U/L (38-126) 11/07/23 14:18
Data Reviewed
-
Diagnostic Radiology: Report Reviewed by me
Lab Data: Labs Reviewed by me
Impression/Plan
-
Diabetic Foot Infection with Osteomyelitis of Right 3rd Toe
-Consult Podiatry
-Consult Infectious Disease
-Check Right Foot MRI
-NPO after midnight for possible OR tomorrow
-Start empiric Vancomycin and Cefepime
Hx Multiple Strokes
-Continue Plavix if OK with Podiatry
Diabetes Mellitus, Type II
-HgbA1c 7.1 in Aug 2023
-Continue Lantus
-Hold metformin, and Farxiga
-Monitor sugars and continue coverage insulin
Diabetic Neuropathy
-Continue amitriptyline
Left Charcot Foot with Chronic Osteomyelitis
-Patient maintained on chronic doxycycline
Hyperlipidemia
-Continue atorvastatin
GERD
-Continue Protonix
DVT Proph: SCDs
Code Status: Full Code
[2023-11-07 18:01] LABS: Erythrocyte Sed Rate 25 mm/hour (0-20)
[2023-11-07 19:00] VITALS: BP 143/81
[2023-11-07 19:30] LABS: Glucose - Point of Care 116 mg/dl (70-99)
[2023-11-07 20:00] VITALS: BP 150/98
[2023-11-07 20:50] VITALS: BMI 31.7
[2023-11-07 20:58] VITALS: BP 147/86
--- NOTE | 2023-11-07 21:09 | PHA.VAN.IN ---
Assessment
- Assessment
Renal Function: Appears elevated from baseline (08/27/23 BASELINE SCR: 0.9)
Concomitant Antimicrobials: CEFEPIME
- Previous Dosing Experience
Previous Regimen: 1GM IV Q12H - NO DOSES GIVEN
Date of Regimen: 10/18/20
Provided Trough of: UNKNOWN
Provided AUC of: UNKNOWN
Patient's SCR is: Decreased compared to previous dosing experience (10/18/20 SCR = 1.2)
Patient's weight is: Elevated compared to previous dosing experience (10/18/20 WT = 106.3 KG)
AUC Dosing Plan
- Dosing Variables
Dosing Weight (kg): 109.3
Dosing CrCl (ml/min): 99
Vd coefficient (L/kg): 0.6
- Empiric Dosing
Initial / Loading Dose: 2GM
Maintenance Regimen: 1500MG IV Q12H
Estimated AUC (mcg*h/mL): 551
Estimated Peak (mcg*h/mL): 35.4
Estimated Trough (mcg/ml): 13.7
Estimated Half Life (H): 8.0
Pharmacokinetics Vancomycin I
- -
Patient Age: 62
Patient Sex: Male
Vancomycin Day #: 1
Indication: Skin And Soft Tissue ([R] FOOT DIABETIC WOUND)
Requesting Provider: KATIE
Height / Weight:
Height 6 ft 1 in
Actual Weight 109.117 kg
Pertinent Past Medical History: IDDM; [L] CHARCOT FOOT
- Vital Signs / Lab Results
Temp Pulse Resp BP Pulse Ox
98.4 F 96 18 147/86 99
11/07/23 20:58 11/07/23 20:58 11/07/23 20:58 11/07/23 20:58 11/07/23 20:58
Lab Results - Hematology
11/07/23
14:18
WBC 13.8 H
Lab Results - Chemistry
11/07/23
14:18
BUN 15
Creatinine 1.0
Albumin 4.2
11/07/23
16:35
Lactic Acid 1.9
--- NOTE | 2023-11-07 22:00 | PTCARENOTE ---
Patient admitted from ED. Patient AAO x3, on RA, in no acute distress. Redness, swelling noted to patient's right foot, right second, third, and fourth toes. No complaints of pain. Skin is warm to palpation, positive B/L dorsalis pedis pulses felt.
Patient oriented to room and call roe is within reach.
[2023-11-07] MEDS: ELAVIL 50 MG PO (22:28)
[2023-11-07] MEDS: NSS 1000 IV (22:29)
[2023-11-07] MEDS: VANCOCIN 540 MG IV (22:29)
[2023-11-07] MEDS: LANTUS 0.140000000000000013 UNITS SC (22:30)
[2023-11-07 23:50] VITALS: BP 134/72
[2023-11-08] VITALS (7 sets, daily range): BP systolic 21–155; BP diastolic 66–88; BMI 31.5
[2023-11-08] MEDS: STERILE WATER FOR INJECTION 10 ML IV ×3 (00:56→13:19)
[2023-11-08] MEDS: MAXIPIME 2000 MG IV ×3 (00:56→13:19)
[2023-11-08] MEDS: VANCOCIN 300 ML IV ×2 (05:24→22:08)
[2023-11-08] MEDS: VANCOCIN 300 MG IV ×2 (05:24→22:08)
[2023-11-08 06:29] LABS: Hematocrit 38.1 % (39.0-52.0); Hemoglobin 13.1 g/dL (13.0-18.0); Mean Corp Hgb Conc. 34.4 g/dL (33.0-37.0); Mean Corpuscular Hgb 29.4 pg (27.0-31.0); Mean Corpuscular Volume 85.4 fL (80.0-94.0); Mean Platelet Volume 10.4 fL (7.4-10.4); Platelet Count 222 10^3/uL (130-400); Red Blood Cell Count 4.46 10^6/uL (4.70-6.10)
[2023-11-08 06:52] LABS: Blood Urea Nitrogen 13 mg/dl (9-20); Calcium 9.4 mg/dl (8.4-10.2); Carbon Dioxide 24 mmol/L (22-30); Chloride 97 mmol/L (98-107); Estimated Creatinine Clearance 110 ml/min; Glucose 118 mg/dl (70-99); Potassium 3.8 mmol/L (3.5-5.1); Sodium 134 mmol/L (135-145); eGFR > 60.00
--- NOTE | 2023-11-08 07:28 | W.PN.HOSP.TC ---
Today's Communication/Plan
-
glycemic control
NPO for OR debridement
follow up post-op recommendations
cont abx as per ID
wound care as per Podiatry
Assessment / Plan
Assessment / Plan
Physical Exam
General: No pallor, cyanosis, or jaundice.
HEENT: Throat clear. Normocephalic atraumatic. Right Prosthetic Eye noted
NECK: Supple. No JVD Carotid Bruits
RESPIRATORY: Lungs clear to auscultation. No crackles wheezes stridor
CVS: S1, S2 normal. RRR.� No murmur, rub or gallop.
ABDOMEN: Soft, non-tender. No distension. BS+/normal.
EXTREMITIES: Rt foot wound noted third toe with surrounding erythema swelling noted, noted left Charcot foot with no acute wounds noted.
PROGRAM ASSOCIATE: AOx3
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
starting 2 months ago.� On prophylactic doxycycline with hx MRSA and left foot osteo/toe amputations, right foot wound infection appeared to be worsening involving the neighboring toes.� Denies fever chills nausea vomiting diarrhea constipation.�
Patient was evaluated by Podiatry who referred patient for ED eval/admission for OR surgical debridement.� XR suggestive of Osteo.� MRI pending.� Patient otherwise reports feeling well.� Mild tachycardia leukocytosis noted but afebrile BP stable no
lactic acidosis.�
Diabetic Foot Infection with Osteomyelitis of Right 3rd Toe
-Podiatry eval appreciated NPO for OR today
-Consult Infectious Disease appreciated cont empiric Vancomycin and Cefepime, add flagyll
-Right Foot MRI appreciated Findings consistent with osteomyelitis involving the third digit middle and distal phalanges and intervening septic arthritis of the DIP joint. diffuse osteitis involving the third digit proximal phalanx with probable
early osteomyelitis throughout the proximal phalanx. Osteitis of the fourth digit proximal and middle phalanges without overt osteomyelitis.
Hx Multiple Strokes
-Continue Plavix if OK with Podiatry
Diabetes Mellitus, Type II
-HgbA1c 7.1 in Aug 2023
-Continue Lantus
-Hold metformin, and Farxiga
-Monitor sugars and continue coverage insulin
Diabetic Neuropathy
-Continue amitriptyline
Left Charcot Foot with Chronic Osteomyelitis
-Patient maintained on chronic doxycycline to be resumed after acute abx above completed
Hyperlipidemia
-Continue atorvastatin
GERD
-Continue Protonix
DVT Proph: SCDs
Code Status: Full Code
I spent a total of 55 minutes with the patient or on the floor. More than 50% of this time involved counseling and coordination of care.
Anticipated Discharge: 24 - 48 hours
Subjective/Interval History
-
Date of Service: November 08, 2023
No acute distress. NPO awaiting OR debridement right foot today. Reports overall feeling well.
Objective Data
-
Labs:
Laboratory Results
11/08/23
05:58
WBC 10.0
Hgb 13.1
Hct 38.1 L
Plt Count 222
Sodium 134 L
Potassium 3.8
Chloride 97 L
Carbon Dioxide 24
BUN 13
Creatinine 0.9
Glucose 118 H
Calcium 9.4
Vital Signs:
Vital Signs
Temp Pulse Resp BP Pulse Ox
98.8 F 83 18 134/72 97
11/07/23 23:50 11/07/23 23:50 11/07/23 23:50 11/07/23 23:50 11/07/23 23:50
I&O
11/07/23 11/08/23 11/09/23
06:59 06:59 06:59
Output Total 800 / 800
Balance -800 / -800
[2023-11-08] MEDS: LIPITOR 40 MG PO (09:05)
[2023-11-08] MEDS: PLAVIX 75 MG PO (09:06)
[2023-11-08] MEDS: PROTONIX 40 MG PO (09:06)
[2023-11-08] MEDS: FEOSOL 325 MG PO (09:06)
[2023-11-08 09:09] LABS: Glucose - Point of Care 120 mg/dl (70-99)
[2023-11-08] MEDS: NOVOLOG FLEXPEN-MODERATE RESISTANCE SC ×3 (09:13→17:16)
--- NOTE | 2023-11-08 09:21 | PHA.VAN.FU ---
Vancomycin Assessment / Plan
- Assessment
Renal Function: Stable
WBC's are: Trending Down
In the past 24 hrs, patient has been: Afebrile
Concomitant Antimicrobials: cefepime
- Dosing Plan
Continue: Vanc 1500mg Q12H
- Monitoring Plan
No level(s) ordered at this time: consider levels in next few days
- Follow Up
Pharmacy will continue to follow.
Vancomycin Follow UP
- -
Patient Age: 62
Patient Sex: Male
Vancomycin Day #: 2
Indication: Skin And Soft Tissue
Requesting Provider: Alessia Freeman
Pertinent Antimicrobial Allergies:
NKDA
Height / Weight:
Height 6 ft 1 in
Actual Weight 108.437 kg
Pertinent Past Medical History: BMI ~31.5, DM
- Vital Signs / Lab Results
Temp Pulse Resp BP Pulse Ox
97.8 F 75 16 132/66 97
11/08/23 07:00 11/08/23 07:00 11/08/23 07:00 11/08/23 07:00 11/08/23 07:00
Lab Results - Hematology
11/07/23 11/08/23
14:18 05:58
WBC 13.8 H 10.0
Lab Results - Chemistry
11/07/23 11/08/23
14:18 05:58
BUN 15 13
Creatinine 1.0 0.9
Estimated Creat Clear 110
Albumin 4.2
11/07/23
16:35
Lactic Acid 1.9
[2023-11-08] MEDS: NSS IV (11:16)
--- NOTE | 2023-11-08 11:56 | WOUNDNOTE ---
[facility] RN NOTE: Reviewed chart and met with patient. Patient very good historian and follows with Dr. Irving. He has had left toe amputations approx 6 years ago that have healed well. He described right foot and right third toe infections that
started several weeks ago and have worsened. Patient said ' I'm realistic, I know this toe will be amputated.' Patient had MRI that revealed osteo. The toe wound is thick with necrotic yellow and black tissue. The proximal posterior aspect of toe
has small opening. There is a small amount of drainage that patient reports have recently increased. He denies pain secondary to neuropathy. He has an off-loading shoe given to him by Dr. Irving. He reports good appetite but is currently NPO. He
is able to ambulate and change position. Heels and sacrum intact. Local wound care provided to help manage drainage. Will recommend 1/4 strength Dakins for cleaning. Will confirm orders and update RN. Care plan updated. Will continue to follow
along.
--- NOTE | 2023-11-08 12:05 | WOUNDNOTE ---
RIGHT TOES/FOOT PLANTAR ASPECT
--- NOTE | 2023-11-08 12:05 | WOUNDNOTE ---
RIGHT 3rd TOE
--- NOTE | 2023-11-08 12:32 | CON.MD ---
Consultation - Medical
-
Patient well known to our service sent to the ED yesterday with cellulitis of the right foot and 3rd toe ulceration. A few weeks ago he admitted to pulling a small piece of loose skin off the toe and the area became red and swollen. Significant
improvement noted with offloading, wound care and oral antibiotic therapy, until this past Sunday when patient's states the toe changed to a purple color. Patient denies fever, chills.
PMH includes Insulin dependent diabetes with peripheral neuropathy, Charcot arthropathy left foot with history of chronic wounds and digital amputations due to MRSA (fdc prophylactic doxycycline), kidney CA, PVD, CVI
Radiographs show cortical changes at the right 3rd distal and middle phalanx indicative of osteomyelitis. MRI shows osteomyelitis of the distal and middle phalanx with septic arthritis at the DIPJ. Diffuse osteitis noted of adjacent toes, no
extension to the adjacent metatarsal and no abscess present.
Patient scheduled today for amputation of the right 3rd toe, local anesthesia with IV sedation. Continue current Vancomycin and Cefepime. Do not hold plavix as patient has had multiple past strokes.
[2023-11-08 12:57] LABS: Glucose - Point of Care 135 mg/dl (70-99)
--- NOTE | 2023-11-08 14:35 | CON.ID ---
Consultation
-
Date/Time Consultation Requested: 11/07/23 20:23
Date/Time Consultation Performed: 11/07/23 14:35
Requesting Provider: Pete MARLEY
Performing Provider: Dr Ortiz
Reason for Consultation: worsening wound infection right third toe starting 2 months ago
Chief Complaint / Past History
Chief Complaint
worsening wound infection right third toe starting 2 months ago
History of Present Illness
Mr Blanton is a pleasant 62 year old male, known to me outpatient for Chronic Osteomyelitis due to MRSA of left midfoot, great toe - on suppressive doxycycline for several years, L foot toe amputations, charcot foot, menieres disease he was referred
to the ER by his podiatrys for a new wound on the right third toe which began about 2 months ago after picking a small piece of loose skin which later became red and swollen. He did improve with offloading, wound care and oral antibiotics however
later with change to a purule color prompting referral to the ER. It has progressed with swelling, erythema and involvement of neighboring toes. No fever chills nausea vomiting diarrhea constipation
Since arrival here patient has been afebrile, bp stable, wbc initially 13.8 now 10.0, hgb 13.1, plt 222, L shift was present on arrival, eoss were still present, ESR 25, cr 0.9, a1cs with fir control wince 2018 running in the 6-7 range, MRI foot:
'osteomyelitis involving the third digit middle and distal phalanges and intervening septic arthritis of the DIP joint. There is diffuse osteitis involving the third digit proximal phalanx with probable early osteomyelitis throughout the proximal
phalanx. Osteitis of the fourth digit proximal and middle phalanges without overt osteomyelitis.' 11/06 Xray: osteomyelitis involving the middle and distal phalanges of the right third toe. 2. Soft tissue swelling of the third digit. A mrsa screen
is pending, blood cultures x2 in progress no growth to date. Seen by Dr Irving, scheduled for amputation of the right 3rd toe, currently on vancomycin and cefepime
Past History
Additional Past Medical History:
Diabetes Mellitus, Type II
Diabetic Neuropathy
Charcot Foot
Hyperlipidemia
GERD
M�ni�re's Disease
TIA/Stroke
Additional Past Surgical History:
Appendectomy
Left Renal Mass
Left Foot Surgery
Right Eye Enucleation
Allergy History:
No Known Allergies Allergy (Verified 11/07/23 14:09)
Medications Reviewed: Yes
Social History
Tobacco: Non-Smoker
Alcohol: None
Personal:
Family History
Family History: Not Pertinent
Review of Systems
Review of Systems
General: Negative Fever or Chills
All systems: All other systems were reviewed and were negative
Vital Signs
Temp Pulse Resp BP Pulse Ox
97.8 F 75 16 132/66 97
11/08/23 07:00 11/08/23 07:00 11/08/23 07:00 11/08/23 07:00 11/08/23 07:00
Physical Exam
Physical Exam
Constitutional: No Acute Distress
Cardiovascular: Regular Rate and S1/S2; Negative Murmur or Rub
Pulmonary: Clear and Symmetric; Negative Wheezes, Rales or Rhonchi
Gastrointestinal: Soft, Non Tender, Non Distended and Normal Bowel Sounds
Skin: Warm and Dry; Negative Rash or Jaundice
Wound: Other (R 3rd digit macerated, swollen, red, serosanguionus drainage, no probe to bone; L foot fully healed surgical sites)
Lab / Diagnostic Study Results
11/08/23 05:58
11/08/23 05:58
Abs Immat Gran (auto) 0.1 10^3/uL (0-0.05) H 11/07/23 14:18
Absolute Neuts (auto) 10.8 10^3/uL (1.4-6.5) H 11/07/23 14:18
Absolute Lymphs (auto) 1.5 10^3/uL (1.2-3.4) 11/07/23 14:18
Absolute Monos (auto) 1.3 10^3/uL (0.1-0.6) H 11/07/23 14:18
Absolute Basos (auto) 0.1 10^3/uL (0-0.2) 11/07/23 14:18
Immature Gran % 0.7 % (0-0.5) H 11/07/23 14:18
Neutrophils % 78.2 % (42.2-75.2) H 11/07/23 14:18
Lymphocytes % 10.7 % (20.5-51.1) L 11/07/23 14:18
Monocytes % 9.5 % (1.7-9.3) H 11/07/23 14:18
Eosinophils % 0.5 % (0-6) 11/07/23 14:18
Basophils % 0.4 % (0-2) 11/07/23 14:18
ESR 25 mm/hour (0-20) H 11/07/23 14:18
Lactic Acid 1.9 mmol/L (0.7-2.0) 11/07/23 16:35
C-Reactive Protein 132.50 mg/L (0.0-10.00) H 11/07/23 14:18
Microbiology Results
Micro:
11/08/23 04:27 MRSA Screen - Pending
Nose
11/07/23 16:35 Blood Culture - Pending
Blood/Venous
11/07/23 16:35 Blood Culture - Pending
Blood/Venous
Assessment / Plan
Diabetic Foot Infection
Osteomyelitis of the R 3rd digit due to diabetic foot infection
H/o Osteomyelitis of Left midfoot, great toe - on suppressive doxycycline
DM2 - fair control
Charcot Foot
- blood cultures x2 in progress no growth to date
- mrsa screen in progress
- for amputation
- will follow up OR cultures/path
- agree with vanc/cefepime, added metronidazole for now
- hopefully for a surgical cure, then will likely switch to augmentin x5 more days and continue the chronic doxycycline for the midfoot indefinitely as previously planned
- follow up in my clinic in 4-6 weeks
[2023-11-08] MEDS: FLAGYL 500 MG PO (15:08)
--- NOTE | 2023-11-08 16:27 | CM ---
Met with pt at bedside
Lives with his and college age son in a 3 story home with FF set-up
Describes self as independent, working
DME - CPAP
SNF - denies past
HH - has used [facility] in past
Has ride home at d/c
PCP - Dr Maxine Alberto
Pharm - [facility]
Pending PT eval
Plan - anticipate home with HH vs no needs
[2023-11-08 17:12] LABS: Glucose - Point of Care 109 mg/dl (70-99)
--- NOTE | 2023-11-08 17:20 | W.PN.UPDATE ---
Update Note
Progress Note Update
For right 3rd toe amputation today under IV sedation. Patient tolerated procedure and anesthesia without complication and returned to recovery room with vital signs stable and neurovascular status in tact. Retention sutures present with packing.
Weight bearing with surgical shoe as tolerated. Reinforce dressing only.
--- NOTE | 2023-11-08 19:43 | PTCARENOTE ---
received pt back to floor from PACU, local anesthesia only used. Pt resting comfortably, VSS stable, diet returned to Diabetic 1999 bam, 17 carb, pt R foot wound dressed from OR. Call roe within reach.
[2023-11-08 21:06] LABS: Glucose - Point of Care 144 mg/dl (70-99)
[2023-11-08] MEDS: NSS 1000 IV (22:08)
[2023-11-08] MEDS: LANTUS 0.140000000000000013 UNITS SC (22:41)
[2023-11-08] MEDS: ELAVIL 50 MG PO (22:42)
[2023-11-09 00:41] VITALS: BP 138/73
[2023-11-09 01:31] VITALS: BP 147/77
[2023-11-09] MEDS: FLAGYL 500 MG PO ×4 (01:43→23:17)
[2023-11-09] MEDS: STERILE WATER FOR INJECTION 10 ML IV ×3 (01:49→17:43)
[2023-11-09] MEDS: MAXIPIME 2000 MG IV ×3 (01:49→17:43)
--- NOTE | 2023-11-09 02:00 | TRANSFER ---
Pt AAOx3, no c/o pain. Vital signs stable at time of transfer. Transferred to [facility] via wheelchair without issues.
--- NOTE | 2023-11-09 02:15 | PTCARENOTE ---
[facility] patient from [facility]. Patient s/p right third toe amputation. Dressing, CDI. Patient able to move toes freely, no c/o pain at this time. Legs elevated. Call roe in reach, plan of care continues.
[2023-11-09 06:00] VITALS: BMI 31.4
[2023-11-09 07:24] LABS: Hematocrit 38.9 % (39.0-52.0); Hemoglobin 13.2 g/dL (13.0-18.0); Mean Corp Hgb Conc. 33.9 g/dL (33.0-37.0); Mean Corpuscular Hgb 29.2 pg (27.0-31.0); Mean Corpuscular Volume 86.1 fL (80.0-94.0); Mean Platelet Volume 10.5 fL (7.4-10.4); Platelet Count 233 10^3/uL (130-400); Red Blood Cell Count 4.52 10^6/uL (4.70-6.10); Red Cell Dist. Width 12.9 % (11.5-14.5); White Blood Cell Count 9.3 10^3/uL (4.8-10.8)
[2023-11-09 07:53] LABS: Blood Urea Nitrogen 13 mg/dl (9-20); Calcium 8.9 mg/dl (8.4-10.2); Carbon Dioxide 26 mmol/L (22-30); Chloride 100 mmol/L (98-107); Estimated Creatinine Clearance 110 ml/min; Glucose 111 mg/dl (70-99); Magnesium 1.7 mg/dl (1.6-2.3); Phosphorus 3.3 mg/dl (2.5-4.5); Potassium 4.2 mmol/L (3.5-5.1); Sodium 132 mmol/L (135-145); eGFR > 60.00
[2023-11-09 08:07] VITALS: BP 134/84
[2023-11-09 08:24] LABS: Glucose - Point of Care 112 mg/dl (70-99)
--- NOTE | 2023-11-09 09:19 | PHA.VAN.FU ---
Vancomycin Assessment / Plan
- Assessment
Renal Function: Stable
WBC's are: Trending Down
In the past 24 hrs, patient has been: Afebrile
Concomitant Antimicrobials: Cefepime, Metronidazole
- Dosing Plan
Continue: 1500mg Q12H
- Monitoring Plan
No level(s) ordered at this time: Consider levels in next few days
- Follow Up
Pharmacy will continue to follow.
Vancomycin Follow UP
- -
Patient Age: 62
Patient Sex: Male
Vancomycin Day #: 3
Indication: Skin And Soft Tissue
Requesting Provider: Diana Peterson
Pertinent Antimicrobial Allergies:
NKDA
Height / Weight:
Height 6 ft 1 in
Actual Weight 108.012 kg
Pertinent Past Medical History: BMI ~31.5, DM
- Vital Signs / Lab Results
Temp Pulse Resp BP Pulse Ox
97.8 F 85 16 134/84 97
11/09/23 08:07 11/09/23 08:07 11/09/23 08:07 11/09/23 08:07 11/09/23 08:07
Lab Results - Hematology
11/07/23 11/08/23 11/09/23
14:18 05:58 06:15
WBC 13.8 H 10.0 9.3
Lab Results - Chemistry
11/07/23 11/08/23 11/09/23
14:18 05:58 06:15
BUN 15 13 13
Creatinine 1.0 0.9 0.9
Estimated Creat Clear 110 110
Albumin 4.2
11/07/23
16:35
Lactic Acid 1.9
Microbiology Results
11/08/23 04:27 MRSA Screen - Final
Nose Staph aureus MRSA
11/08/23 16:52 Gram Stain - Preliminary
Toe
11/08/23 17:00 Gram Stain - Preliminary
Toe
11/07/23 16:35 Blood Culture - Preliminary
Blood/Venous No Growth in 24 hours- Final report to follow
11/07/23 16:35 Blood Culture - Preliminary
Blood/Venous No Growth in 24 hours- Final report to follow
--- NOTE | 2023-11-09 09:36 | W.PN.HOSP.TC ---
Today's Communication/Plan
-
cont wound care as per podiatry
antibiotics as per ID
glycemic control
Assessment / Plan
Assessment / Plan
Physical Exam
General: No pallor, cyanosis, or jaundice.
HEENT: Throat clear. Normocephalic atraumatic. Right Prosthetic Eye noted
NECK: Supple. No JVD Carotid Bruits
RESPIRATORY: Lungs clear to auscultation. No crackles wheezes stridor
CVS: S1, S2 normal. RRR.� No murmur, rub or gallop.
ABDOMEN: Soft, non-tender. No distension. BS+/normal.
EXTREMITIES:Rt foot bandage clean dry intact, noted left Charcot foot with no acute wounds noted.
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
starting 2 months ago.� On prophylactic doxycycline with hx MRSA and left foot osteo/toe amputations, right foot wound infection appeared to be worsening involving the neighboring toes.� Denies fever chills nausea vomiting diarrhea constipation.�
Patient was evaluated by Podiatry who referred patient for ED eval/admission for OR surgical debridement.� XR suggestive of Osteo.� MRI pending.� Patient otherwise reports feeling well.� Mild tachycardia leukocytosis noted but afebrile BP stable no
lactic acidosis.�
Diabetic Foot Infection with Osteomyelitis of Right 3rd Toe
-Right Foot MRI appreciated Findings consistent with osteomyelitis involving the third digit middle and distal phalanges and intervening septic arthritis of the DIP joint. diffuse osteitis involving the third digit proximal phalanx with probable
early osteomyelitis throughout the proximal phalanx. Osteitis of the fourth digit proximal and middle phalanges without overt osteomyelitis.
-Podiatry eval appreciated OR debridement amputation Rt 3rd toe performed 11/07, ambulate with surgical shoe only, daily wound care on discharge
-OR prelim cx's appreciated Strep agalactiae
-Consult Infectious Disease appreciated cont empiric Vancomycin and Cefepime, flagyll
Hx Multiple Strokes
-Continue Plavix
Diabetes Mellitus, Type II
-HgbA1c 7.1 in Aug 2023
-Continue Lantus
-Hold metformin, and Farxiga
-Monitor sugars and continue coverage insulin
Diabetic Neuropathy
-Continue amitriptyline
Left Charcot Foot with Chronic Osteomyelitis
-Patient maintained on chronic doxycycline to be resumed after acute abx above completed
Hyperlipidemia
-Continue atorvastatin
GERD
-Continue Protonix
DVT Proph: SCDs
Code Status: Full Code
I spent a total of 55 minutes with the patient or on the floor. More than 50% of this time involved counseling and coordination of care.
Anticipated Discharge: 24 - 48 hours
Subjective/Interval History
-
Date of Service: November 09, 2023
No acute distress sitting up comfortably in bed. denies new acute issues at this time. reports feeling well.
Objective Data
-
Labs:
Laboratory Results
11/09/23
06:15
WBC 9.3
Hgb 13.2
Hct 38.9 L
Plt Count 233
Sodium 132 L
Potassium 4.2
Chloride 100
Carbon Dioxide 26
BUN 13
Creatinine 0.9
Glucose 111 H
Calcium 8.9
Vital Signs:
Vital Signs
Temp Pulse Resp BP Pulse Ox
97.8 F 85 16 134/84 97
11/09/23 08:07 11/09/23 08:07 11/09/23 08:07 11/09/23 08:07 11/09/23 08:07
I&O
11/08/23 11/09/23 11/10/23
06:59 06:59 06:59
Intake Total 480 / 480
Output Total 800 / 800 850 / 850
Balance -800 / -800 -370 / -370
[2023-11-09] MEDS: NOVOLOG FLEXPEN-MODERATE RESISTANCE SC (09:48)
[2023-11-09] MEDS: LIPITOR 40 MG PO (09:50)
[2023-11-09] MEDS: PROTONIX 40 MG PO (09:52)
[2023-11-09] MEDS: FEOSOL 325 MG PO (09:52)
[2023-11-09] MEDS: PLAVIX 75 MG PO (09:52)
[2023-11-09] MEDS: VANCOCIN 300 MG IV ×2 (09:57→22:01)
[2023-11-09] MEDS: VANCOCIN 300 ML IV ×2 (09:57→22:01)
[2023-11-09 12:19] LABS: Glucose - Point of Care 188 mg/dl (70-99)
[2023-11-09] MEDS: NOVOLOG FLEXPEN-MODERATE RESISTANCE 1 UNITS SC ×2 (12:24→17:42)
--- NOTE | 2023-11-09 12:57 | PN.CDI ---
CDI
- -
CDI:
Physician Documentation Request
Admit Date: 11/07/23 18:55
Dear Doctor Silvestre,
Clinical Indicators:
Patient admitted with diabetic foot infection; s/p amputation of right 3rd toe 11/07.
IVF: NSS given.
Sodium levels:
11/07/23 11/08/23
14:18 05:58
Sodium 133 L 134 L
Based on the above, could you clarify in the progress notes, the appropriate diagnosis, if significant, that supports the above abnormalities and additional evaluation, monitoring and/or treatment rendered:
Hyponatremia
Abnormal lab value, clinically insignificant
Other
Use of terms such as suspected, likely, concern for, or probable (associated with a specific diagnosis that is being evaluated, monitored, or treated as if it exists) are acceptable and can be coded in the inpatient setting, when documented at the
time of discharge.
Thank you,
KRISTIN Ross RN
CDI Specialist
available via tiger text
Please use your independent medical judgment in providing your response.
--- NOTE | 2023-11-09 13:02 | W.PN.POD ---
Today's Communication
Today's Communication
Surgical site stable
Discharge pending ID evaluation and plan
Assessment / Plan
-
Assessment/Plan
One day status post right 3rd toe amputation
-Packing pulled and retention sutures stable
-Will need daily wound care upon discharge. Ambulate with surgical shoe only
-OR pathology and cultures pending, but confident that all infectious tissue resected. More concern regarding small vessel disease.
-Appreciate ID input and agree with planned antibiotic course and outpatient follow up. OK for discharge pending ID evaluation
Insulin dependent diabetes with peripheral neuropathy
History of CVA
Subjective
Chief Complaint
62 year old male admitted with right 3rd toe infection
Subjective
Patient seen in bed with no complaints. Denies pain, fever or chills
Objective
Temp Pulse Resp BP Pulse Ox
97.8 F 85 16 134/84 97
11/09/23 08:07 11/09/23 08:07 11/09/23 08:07 11/09/23 08:07 11/09/23 08:07
11/09/23 06:15
11/09/23 06:15
Vital Signs and Lab results were reviewed.
Dressing and packing removed with no malodor, no drainage and wound edges stable. Surrounding skin with decreased edema and erythema.
Review of Systems
Review of Systems
Review of Systems: No Fever and No Chills
--- NOTE | 2023-11-09 13:55 | W.PN.ID1 ---
Date of Service
Date of Service: November 09, 2023
Today's Communication
Continue antibiotics for today.
Assessment / Plan
Diabetic Foot Infection - (R) foot
Osteomyelitis of the (R) 3rd digit due to diabetic foot infection
- s/p (R) 3rd toe amp (11/08/23)
H/o Osteomyelitis of Left midfoot, great toe - on suppressive doxycycline
DM2 - fair control
Charcot Foot
- blood cultures x2 in progress no growth to date
- mrsa screen positive
- OR cultures with Gp B strep. (prelim). Await culture finalization.
- Continue vanc / cefepime / metronidazole for today.
- hopefully for a surgical cure, then will likely switch to augmentin x5 more days and continue the chronic doxycycline for the midfoot indefinitely as previously planned
- office follow up with Dr. Ortiz in 4-6 weeks
Chief Complaint
-: Other (Osteomyelitis)
Subjective / Review of Systems
Review of Systems: No Fever and No Chills
Vital Signs / Physical Exam
Vital Signs
Vital Signs
Temp Pulse Resp BP Pulse Ox
97.8 F 85 16 134/84 97
11/09/23 08:07 11/09/23 08:07 11/09/23 08:07 11/09/23 08:07 11/09/23 08:07
Physical Exam
Constitutional: No Acute Distress, Comfortable and Non-toxic
Eyes: Sclera Anicteric
Pulmonary: Non Labored
Gastrointestinal: Non Distended
Wound: Other (Right foot wrapped in Stef wrap. No erythema up leg.)
Neurological: Awake and Alert
Psychological: Calm
Objective Data
Lab Data
Lab Results
11/09/23 06:15
11/09/23 06:15
ESR 25 mm/hour (0-20) H 11/07/23 14:18
Estimated Creat Clear 110 ml/min 11/09/23 06:15
Lactic Acid 1.9 mmol/L (0.7-2.0) 11/07/23 16:35
Total Bilirubin 1.1 mg/dl (0.2-1.3) 11/07/23 14:18
AST 22 U/L (17-59) 11/07/23 14:18
ALT 28 U/L (0-50) 11/07/23 14:18
Alkaline Phosphatase 114 U/L (38-126) 11/07/23 14:18
C-Reactive Protein 132.50 mg/L (0.0-10.00) H 11/07/23 14:18
Most recent labs reviewed.
Micro Results:
11/08/23 16:52 Anaerobic Culture - Preliminary
Toe Culture pending. Anaerobic cultures are examined after 3
days incubation. Additional information to follow.
11/08/23 17:00 Tissue Culture - Preliminary
Toe Streptococcus agalactiae
Gram Stain - Preliminary
11/08/23 16:52 Wound Culture - Preliminary
Toe Streptococcus agalactiae
Gram Stain - Preliminary
11/08/23 04:27 MRSA Screen - Final
Nose Staph aureus MRSA
11/07/23 16:35 Blood Culture - Preliminary
Blood/Venous No Growth in 24 hours- Final report to follow
11/07/23 16:35 Blood Culture - Preliminary
Blood/Venous No Growth in 24 hours- Final report to follow
[2023-11-09 15:25] VITALS: BP 144/81
--- NOTE | 2023-11-09 15:39 | CM ---
Patient seen at bedside with family member present. Patient stated that he does not feel he will need VN supports at discharge. CM will continue to follow for discharge planning needs.
Plan; home with no needs.
[2023-11-09 17:14] LABS: Glucose - Point of Care 166 mg/dl (70-99)
[2023-11-09 21:20] LABS: Glucose - Point of Care 133 mg/dl (70-99)
[2023-11-09] MEDS: ELAVIL 50 MG PO (21:59)
[2023-11-09] MEDS: LANTUS 0.140000000000000013 UNITS SC (21:59)
[2023-11-09 23:52] VITALS: BP 157/79
[2023-11-10] MEDS: STERILE WATER FOR INJECTION 10 ML IV ×3 (00:59→18:03)
[2023-11-10] MEDS: MAXIPIME 2000 MG IV ×3 (00:59→18:01)
[2023-11-10 05:55] VITALS: BMI 31.4
[2023-11-10 06:21] LABS: Hemoglobin 13.3 g/dL (13.0-18.0); Mean Corp Hgb Conc. 34.1 g/dL (33.0-37.0); Mean Corpuscular Volume 87.8 fL (80.0-94.0); Mean Platelet Volume 10.6 fL (7.4-10.4); Platelet Count 259 10^3/uL (130-400); Red Blood Cell Count 4.44 10^6/uL (4.70-6.10); Red Cell Dist. Width 12.8 % (11.5-14.5); White Blood Cell Count 8.1 10^3/uL (4.8-10.8)
[2023-11-10 06:39] LABS: Blood Urea Nitrogen 14 mg/dl (9-20); Calcium 8.9 mg/dl (8.4-10.2); Carbon Dioxide 28 mmol/L (22-30); Chloride 101 mmol/L (98-107); Estimated Creatinine Clearance 110 ml/min; Glucose 180 mg/dl (70-99); Magnesium 1.9 mg/dl (1.6-2.3); Phosphorus 2.5 mg/dl (2.5-4.5); Potassium 4.1 mmol/L (3.5-5.1); Sodium 135 mmol/L (135-145); eGFR > 60.00
--- NOTE | 2023-11-10 07:02 | W.PN.HOSP.TC ---
Today's Communication/Plan
-
cont abx
apply surgical shoe right foot
PT/OT
glycemic control
Assessment / Plan
Assessment / Plan
Physical Exam
General: No pallor, cyanosis, or jaundice.
HEENT: Throat clear. Normocephalic atraumatic. Right Prosthetic Eye noted
NECK: Supple. No JVD Carotid Bruits
RESPIRATORY: Lungs clear to auscultation. No crackles wheezes stridor
CVS: S1, S2 normal. RRR.� No murmur, rub or gallop.
ABDOMEN: Soft, non-tender. No distension. BS+/normal.
EXTREMITIES:Rt foot bandage clean dry intact, noted left Charcot foot with no acute wounds noted.
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
starting 2 months ago.� On prophylactic doxycycline with hx MRSA and left foot osteo/toe amputations, right foot wound infection appeared to be worsening involving the neighboring toes.� Denies fever chills nausea vomiting diarrhea constipation.�
Patient was evaluated by Podiatry who referred patient for ED eval/admission for OR surgical debridement.� XR suggestive of Osteo.� MRI pending.� Patient otherwise reports feeling well.� Mild tachycardia leukocytosis noted but afebrile BP stable no
lactic acidosis.�
Diabetic Foot Infection with Osteomyelitis of Right 3rd Toe
MRSA screen positive
-Right Foot MRI appreciated Findings consistent with osteomyelitis involving the third digit middle and distal phalanges and intervening septic arthritis of the DIP joint. diffuse osteitis involving the third digit proximal phalanx with probable
early osteomyelitis throughout the proximal phalanx. Osteitis of the fourth digit proximal and middle phalanges without overt osteomyelitis.
-Podiatry eval appreciated OR debridement amputation Rt 3rd toe performed 11/07, ambulate with surgical shoe only, daily wound care on discharge
-OR prelim cx's appreciated Strep agalactiae
-Consult Infectious Disease appreciated cont empiric Vancomycin and Cefepime, flagyll
Hx Multiple Strokes
-Continue Plavix
Diabetes Mellitus, Type II
-HgbA1c 7.1 in Aug 2023
-Continue Lantus
-Hold metformin, and Farxiga
-Monitor sugars and continue coverage insulin
Diabetic Neuropathy
-Continue amitriptyline
Left Charcot Foot with Chronic Osteomyelitis
-Patient maintained on chronic doxycycline to be resumed after acute abx above completed
Hyperlipidemia
-Continue atorvastatin
GERD
-Continue Protonix
DVT Proph: SCDs
Code Status: Full Code
PT/OT
I spent a total of 55 minutes with the patient or on the floor. More than 50% of this time involved counseling and coordination of care.
Anticipated Discharge: 24 - 48 hours
Subjective/Interval History
-
Date of Service: November 10, 2023
No acute distress, appears comfortable at this time. Denies new acute issues.
Objective Data
-
Labs:
Laboratory Results
11/10/23
04:21
WBC 8.1
Hgb 13.3
Hct 39.0
Plt Count 259
Sodium 135
Potassium 4.1
Chloride 101
Carbon Dioxide 28
BUN 14
Creatinine 0.9
Glucose 180 H
Calcium 8.9
Vital Signs:
Vital Signs
Temp Pulse Resp BP Pulse Ox
99.2 F 68 18 157/79 96
11/09/23 23:52 11/09/23 23:52 11/09/23 23:52 11/09/23 23:52 11/09/23 23:52
I&O
11/09/23 11/10/23 11/11/23
06:59 06:59 06:59
Intake Total 480 / 480 1140 / 1140
Output Total 850 / 850 2400 / 2400
Balance -370 / -370 -1260 / -1260
--- NOTE | 2023-11-10 07:45 | PHA.VAN.FU ---
Vancomycin Assessment / Plan
- Assessment
Renal Function: Stable
WBC's are: Trending Down
In the past 24 hrs, patient has been: Afebrile
Concomitant Antimicrobials: CEFEPIME, METRONIDAZOLE
- Dosing Plan
Continue: 1500MG Q12H
- Monitoring Plan
Peak Level: 11/10 @ 0100
Trough Level: 11/10 @ 0930
- Follow Up
Pharmacy will continue to follow.
Vancomycin Follow UP
- -
Patient Age: 62
Patient Sex: Male
Vancomycin Day #: 4
Indication: Skin And Soft Tissue
Requesting Provider: Diana Peterson
Pertinent Antimicrobial Allergies:
NKDA
Height / Weight:
Height 6 ft 1 in
Actual Weight 108.097 kg
Pertinent Past Medical History: BMI ~31.5, DM
- Vital Signs / Lab Results
Temp Pulse Resp BP Pulse Ox
99.2 F 68 18 157/79 96
11/09/23 23:52 11/09/23 23:52 11/09/23 23:52 11/09/23 23:52 11/09/23 23:52
Lab Results - Hematology
11/07/23 11/08/23 11/09/23
14:18 05:58 06:15
WBC 13.8 H 10.0 9.3
11/10/23
04:21
WBC 8.1
Lab Results - Chemistry
11/07/23 11/08/23 11/09/23
14:18 05:58 06:15
BUN 15 13 13
Creatinine 1.0 0.9 0.9
Estimated Creat Clear 110 110
Albumin 4.2
11/10/23
04:21
BUN 14
Creatinine 0.9
Estimated Creat Clear 110
Albumin
11/07/23
16:35
Lactic Acid 1.9
Microbiology Results
11/07/23 16:35 Blood Culture - Preliminary
Blood/Venous No Growth in 48 hours- Final report to follow
11/07/23 16:35 Blood Culture - Preliminary
Blood/Venous No Growth in 48 hours- Final report to follow
11/08/23 16:52 Anaerobic Culture - Preliminary
Toe Culture pending. Anaerobic cultures are examined after 3
days incubation. Additional information to follow.
11/08/23 17:00 Tissue Culture - Preliminary
Toe Streptococcus agalactiae
Gram Stain - Preliminary
11/08/23 16:52 Wound Culture - Preliminary
Toe Streptococcus agalactiae
Gram Stain - Preliminary
11/08/23 04:27 MRSA Screen - Final
Nose Staph aureus MRSA
[2023-11-10 08:12] VITALS: BP 134/74
[2023-11-10 08:25] LABS: Glucose - Point of Care 149 mg/dl (70-99)
[2023-11-10] MEDS: NOVOLOG FLEXPEN-MODERATE RESISTANCE SC (08:26)
[2023-11-10] MEDS: PLAVIX 75 MG PO (08:28)
[2023-11-10] MEDS: FLAGYL 500 MG PO ×3 (08:28→23:04)
[2023-11-10] MEDS: PROTONIX 40 MG PO (08:28)
[2023-11-10] MEDS: FEOSOL 325 MG PO (08:28)
[2023-11-10] MEDS: LIPITOR 40 MG PO (08:29)
[2023-11-10] MEDS: VANCOCIN 300 ML IV ×2 (10:44→21:36)
[2023-11-10] MEDS: VANCOCIN 300 MG IV ×2 (10:44→21:36)
[2023-11-10 12:33] LABS: Glucose - Point of Care 220 mg/dl (70-99)
[2023-11-10] MEDS: NOVOLOG FLEXPEN-MODERATE RESISTANCE 3 UNITS SC (12:57)
[2023-11-10 16:03] VITALS: BP 166/86
[2023-11-10 16:48] LABS: Glucose - Point of Care 155 mg/dl (70-99)
[2023-11-10] MEDS: NOVOLOG FLEXPEN-MODERATE RESISTANCE 1 UNITS SC (18:00)
[2023-11-10 21:10] LABS: Glucose - Point of Care 146 mg/dl (70-99)
[2023-11-10] MEDS: LANTUS 0.200000000000000011 UNITS SC (21:35)
[2023-11-10] MEDS: ELAVIL 50 MG PO (21:35)
[2023-11-10 23:37] VITALS: BP 146/71
[2023-11-11] MEDS: MAXIPIME 2000 MG IV ×3 (01:24→17:35)
[2023-11-11] MEDS: STERILE WATER FOR INJECTION 10 ML IV ×3 (01:25→17:35)
[2023-11-11 06:00] VITALS: BMI 31.3
--- NOTE | 2023-11-11 06:35 | W.PN.HOSP.TC ---
Today's Communication/Plan
-
cont abx as per ID
wound care as per podiatry
PT/OT
glycemic control
surgical shoe
Assessment / Plan
Assessment / Plan
Physical Exam
General: No pallor, cyanosis, or jaundice.
HEENT: Throat clear. Normocephalic atraumatic. Right Prosthetic Eye noted
NECK: Supple. No JVD Carotid Bruits
RESPIRATORY: Lungs clear to auscultation. No crackles wheezes stridor
CVS: S1, S2 normal. RRR.� No murmur, rub or gallop.
ABDOMEN: Soft, non-tender. No distension. BS+/normal.
EXTREMITIES:Rt foot bandage clean dry intact, noted left Charcot foot with no acute wounds noted.
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
starting 2 months ago.� On prophylactic doxycycline with hx MRSA and left foot osteo/toe amputations, right foot wound infection appeared to be worsening involving the neighboring toes.� Denies fever chills nausea vomiting diarrhea constipation.�
Patient was evaluated by Podiatry who referred patient for ED eval/admission for OR surgical debridement.� XR suggestive of Osteo.� MRI pending.� Patient otherwise reports feeling well.� Mild tachycardia leukocytosis noted but afebrile BP stable no
lactic acidosis.�
Diabetic Foot Infection with Osteomyelitis of Right 3rd Toe
MRSA screen positive
-Right Foot MRI appreciated Findings consistent with osteomyelitis involving the third digit middle and distal phalanges and intervening septic arthritis of the DIP joint. diffuse osteitis involving the third digit proximal phalanx with probable
early osteomyelitis throughout the proximal phalanx. Osteitis of the fourth digit proximal and middle phalanges without overt osteomyelitis.
-Podiatry eval appreciated OR debridement amputation Rt 3rd toe performed 11/07, ambulate with surgical shoe only, daily wound care on discharge
-OR cx's appreciated Strep agalactiae Haemophilus parainfluenzae
-Bone Pathology Pending
-Consult Infectious Disease appreciated cont empiric Vancomycin and Cefepime, flagyll
Hx Multiple Strokes
-Continue Plavix
Diabetes Mellitus, Type II
-HgbA1c 7.1 in Aug 2023
-Continue Lantus
-Hold metformin, and Farxiga
-Monitor sugars and continue coverage insulin
Diabetic Neuropathy
-Continue amitriptyline
Left Charcot Foot with Chronic Osteomyelitis
-Patient maintained on chronic doxycycline to be resumed after acute abx above completed
Hyperlipidemia
-Continue atorvastatin
GERD
-Continue Protonix
Mild Hyponatremia nonsignificant
DVT Proph: SCDs
Code Status: Full Code
PT/OT home health vs SNF
I spent a total of 55 minutes with the patient or on the floor. More than 50% of this time involved counseling and coordination of care.
Anticipated Discharge: 24 - 48 hours
Subjective/Interval History
-
Date of Service: November 11, 2023
No acute distress. Denies new acute issues. Patient reports overall feeling well.
Objective Data
-
Labs:
Laboratory Results
11/11/23
06:00
WBC Pending
Hgb Pending
Hct Pending
Plt Count Pending
Sodium Pending
Potassium Pending
Chloride Pending
Carbon Dioxide Pending
BUN Pending
Creatinine Pending
Glucose Pending
Calcium Pending
Vital Signs:
Vital Signs
Temp Pulse Resp BP Pulse Ox
97.9 F 62 18 146/71 98
11/10/23 23:37 11/10/23 23:37 11/10/23 23:37 11/10/23 23:37 11/10/23 23:37
I&O
11/09/23 11/10/23 11/11/23
06:59 06:59 06:59
Intake Total 480 / 480 1140 / 1140 2160 / 2160
Output Total 850 / 850 2400 / 2400 1700 / 1700
Balance -370 / -370 -1260 / -1260 460 / 460
[2023-11-11 07:04] LABS: Glucose - Point of Care 123 mg/dl (70-99)
[2023-11-11 07:05] VITALS: BP 149/80
[2023-11-11] MEDS: PROTONIX 40 MG PO (07:51)
[2023-11-11] MEDS: NOVOLOG FLEXPEN-MODERATE RESISTANCE SC ×2 (07:51→16:40)
[2023-11-11] MEDS: FLAGYL 500 MG PO ×3 (07:51→23:24)
[2023-11-11] MEDS: LIPITOR 40 MG PO (07:52)
[2023-11-11] MEDS: FEOSOL 325 MG PO (07:52)
[2023-11-11] MEDS: PLAVIX 75 MG PO (07:52)
[2023-11-11 09:50] LABS: Hematocrit 42.6 % (39.0-52.0); Hemoglobin 14.7 g/dL (13.0-18.0); Mean Corp Hgb Conc. 34.5 g/dL (33.0-37.0); Mean Corpuscular Hgb 30.2 pg (27.0-31.0); Mean Corpuscular Volume 87.5 fL (80.0-94.0); Mean Platelet Volume 10.1 fL (7.4-10.4); Platelet Count 262 10^3/uL (130-400); Red Blood Cell Count 4.87 10^6/uL (4.70-6.10); Red Cell Dist. Width 12.8 % (11.5-14.5); White Blood Cell Count 7.4 10^3/uL (4.8-10.8)
[2023-11-11 10:05] LABS: Blood Urea Nitrogen 13 mg/dl (9-20); Calcium 9.5 mg/dl (8.4-10.2); Carbon Dioxide 26 mmol/L (22-30); Chloride 102 mmol/L (98-107); Estimated Creatinine Clearance 123 ml/min; Glucose 146 mg/dl (70-99); Magnesium 1.9 mg/dl (1.6-2.3); Phosphorus 3.1 mg/dl (2.5-4.5); Potassium 4.1 mmol/L (3.5-5.1); Sodium 134 mmol/L (135-145); eGFR > 60.00
[2023-11-11 10:07] LABS: Vancomycin Trough 16.3 ug/ml (5-20)
--- NOTE | 2023-11-11 10:12 | PHA.VAN.FU ---
Vancomycin Assessment / Plan
- Assessment
Renal Function: Stable
WBC's are: WNL
In the past 24 hrs, patient has been: Afebrile
Concomitant Antimicrobials: CEFEPIME, METRONIDAZOLE
- Assessment - Therapeutic Drug Monitoring
Extrapolated Cmax (mcg/mL): 29.7
Peak level was drawn: More than 3 hours after previous dose (1 MIN PAST THE 3 HR CUT OFF, NOT REALLY A BIG DEAL)
Extrapolated Cmin (mcg/mL): 16.3
Trough Drawn: Appropriately
Levels were drawn: At steady state
Calculated AUC (mcg*h/mL): 538
Calculated ke: 0.0574
Calculated half life (H): 12.1
Calculated Vd (L): 97.1
Calculated Vanc CL (ml/min): 92.91
- Dosing Plan
Continue: 1500MG Q12H
- Monitoring Plan
Level(s) appropriate: Recheck trough at minimum of weekly intervals, Repeat sooner for changes in renal function or clinical status
- Follow Up
Pharmacy will continue to follow.
Vancomycin Follow UP
- -
Patient Age: 62
Patient Sex: Male
Vancomycin Day #: 5
Indication: Skin And Soft Tissue
Requesting Provider: Diana Peterson
Pertinent Antimicrobial Allergies:
NKDA
Height / Weight:
Height 6 ft 1 in
Actual Weight 107.671 kg
Pertinent Past Medical History: BMI ~31.5, DM
- Vital Signs / Lab Results
Temp Pulse Resp BP Pulse Ox
97.8 F 70 20 149/80 96
11/11/23 07:05 11/11/23 07:05 11/11/23 07:05 11/11/23 07:05 11/11/23 07:05
Lab Results - Hematology
11/09/23 11/10/23 11/11/23
06:15 04:21 09:34
WBC 9.3 8.1 7.4
Lab Results - Chemistry
11/09/23 11/10/23 11/11/23
06:15 04:21 09:34
BUN 13 14 13
Creatinine 0.9 0.9 0.8
Estimated Creat Clear 110 110 123
Microbiology Results
11/08/23 16:52 Anaerobic Culture - Preliminary
Toe Culture pending. Anaerobic cultures are examined after 3
days incubation. Additional information to follow.
11/07/23 16:35 Blood Culture - Preliminary
Blood/Venous No Growth in 72 hours- Final report to follow
11/07/23 16:35 Blood Culture - Preliminary
Blood/Venous No Growth in 72 hours- Final report to follow
11/08/23 17:00 Tissue Culture - Final
Toe Streptococcus agalactiae
Haemophilus parainfluenzae
Gram Stain - Final
11/08/23 16:52 Wound Culture - Preliminary
Toe Streptococcus agalactiae
Gram Stain - Preliminary
11/08/23 04:27 MRSA Screen - Final
Nose Staph aureus MRSA
Therapeutic Drug Monitoring
Vancomycin Peak 25.0 ug/ml (18-26) 11/11/23 02:07
Vancomycin Trough 16.3 ug/ml (5-20) 11/11/23 09:34
[2023-11-11 10:15] VITALS: BP 159/82; PULSE 100
[2023-11-11 10:22] VITALS: BP 159/82; PULSE 100
--- NOTE | 2023-11-11 10:28 | W.PN.POD ---
Today's Communication
Today's Communication
-Surgical site stable with decreased edema and erythema
-Stable for discharge pending ID approval/outpatient antibiotic course
Assessment / Plan
-
Assessment/Plan
Status post right 3rd toe amputation, osteomyelitis
-Retention sutures stable with decreased edema and erythema.
-Will need daily wound care upon discharge. Ambulate with surgical shoe only
-OR pathology pending and preliminary wound culture positive for S. Agalactiae, but confident that all infectious tissue resected. More concern regarding small vessel disease.
-Appreciate ID input and agree with planned antibiotic course and outpatient follow up. OK for discharge pending ID evaluation
Insulin dependent diabetes with peripheral neuropathy
History of CVA
Subjective
Chief Complaint
62 year old male admitted with right foot infection and 3rd toe gangrene
Subjective
Patient resting comfortably with no complaints
Objective
Temp Pulse Resp BP Pulse Ox
97.8 F 70 20 149/80 96
11/11/23 07:05 11/11/23 07:05 11/11/23 07:05 11/11/23 07:05 11/11/23 07:05
11/11/23 09:34
11/11/23 09:34
Vital Signs and Lab results were reviewed.
Review of Systems
Review of Systems
Review of Systems: No Fever and No Chills
Physical Exam
Physical Exam
receding cellulitis with decreased edema and erythema to the right dorsal foot. Incision site stable with retention sutures in tact. No drainage or malodor. Granulation noted at base of wound.
--- NOTE | 2023-11-11 10:30 | PTCARENOTE ---
Spoke with Dr Irving, wound care orders placed, d./c ria order. POC updated.
[2023-11-11] MEDS: VANCOCIN 300 MG IV ×2 (10:41→21:18)
[2023-11-11] MEDS: VANCOCIN 300 ML IV ×2 (10:41→21:18)
[2023-11-11 11:41] LABS: Glucose - Point of Care 221 mg/dl (70-99)
[2023-11-11] MEDS: NOVOLOG FLEXPEN-MODERATE RESISTANCE 3 UNITS SC (12:55)
[2023-11-11 15:05] VITALS: BP 139/81
[2023-11-11 16:36] LABS: Glucose - Point of Care 105 mg/dl (70-99)
[2023-11-11 21:18] LABS: Glucose - Point of Care 141 mg/dl (70-99)
[2023-11-11] MEDS: ELAVIL 50 MG PO (21:18)
[2023-11-11] MEDS: LANTUS 0.200000000000000011 UNITS SC (21:18)
[2023-11-11 23:15] VITALS: BP 135/74
[2023-11-12] MEDS: STERILE WATER FOR INJECTION 10 ML IV ×2 (01:44→10:29)
[2023-11-12] MEDS: MAXIPIME 2000 MG IV ×2 (01:44→10:29)
[2023-11-12 06:00] VITALS: BMI 31.3
[2023-11-12 07:00] LABS: Glucose - Point of Care 113 mg/dl (70-99)
[2023-11-12 07:05] VITALS: BP 138/59
--- NOTE | 2023-11-12 07:21 | PHA.VAN.FU ---
Vancomycin Assessment / Plan
- Assessment
Renal Function: Stable
WBC's are: WNL
In the past 24 hrs, patient has been: Afebrile
Concomitant Antimicrobials: Cefepime, Metronidazole
- Dosing Plan
Continue: 1500mg Q12H
- Monitoring Plan
Level(s) appropriate: Recheck trough at minimum of weekly intervals, Repeat sooner for changes in renal function or clinical status
- Follow Up
Pharmacy will continue to follow.
Vancomycin Follow UP
- -
Patient Age: 62
Patient Sex: Male
Vancomycin Day #: 6
Indication: Skin And Soft Tissue
Requesting Provider: Diana Peterson
Pertinent Antimicrobial Allergies:
NKDA
Height / Weight:
Height 6 ft 1 in
Actual Weight 107.615 kg
Pertinent Past Medical History: BMI ~31.5, DM
- Vital Signs / Lab Results
Temp Pulse Resp BP Pulse Ox
98 F 70 20 135/74 97
11/11/23 23:15 11/11/23 23:15 11/11/23 23:15 11/11/23 23:15 11/11/23 23:15
Lab Results - Hematology
11/09/23 11/10/23 11/11/23
06:15 04:21 09:34
WBC 9.3 8.1 7.4
Lab Results - Chemistry
11/09/23 11/10/23 11/11/23
06:15 04:21 09:34
BUN 13 14 13
Creatinine 0.9 0.9 0.8
Estimated Creat Clear 110 110 123
Microbiology Results
11/07/23 16:35 Blood Culture - Preliminary
Blood/Venous No Growth in 4 days- Final report to follow
11/07/23 16:35 Blood Culture - Preliminary
Blood/Venous No Growth in 4 days- Final report to follow
11/08/23 16:52 Anaerobic Culture - Preliminary
Toe Culture pending. Anaerobic cultures are examined after 3
days incubation. Additional information to follow.
11/08/23 17:00 Tissue Culture - Final
Toe Streptococcus agalactiae
Haemophilus parainfluenzae
Gram Stain - Final
Therapeutic Drug Monitoring
Vancomycin Peak 25.0 ug/ml (18-26) 11/11/23 02:07
Vancomycin Trough 16.3 ug/ml (5-20) 11/11/23 09:34
[2023-11-12] MEDS: PROTONIX 40 MG PO (08:03)
[2023-11-12] MEDS: FLAGYL 500 MG PO (08:03)
[2023-11-12] MEDS: NOVOLOG FLEXPEN-MODERATE RESISTANCE SC (08:03)
[2023-11-12] MEDS: LIPITOR 40 MG PO (08:04)
[2023-11-12] MEDS: PLAVIX 75 MG PO (08:04)
[2023-11-12] MEDS: FEOSOL 325 MG PO (08:04)
[2023-11-12 08:50] LABS: Hematocrit 44.2 % (39.0-52.0); Hemoglobin 14.7 g/dL (13.0-18.0); Mean Corp Hgb Conc. 33.3 g/dL (33.0-37.0); Mean Corpuscular Hgb 29.1 pg (27.0-31.0); Mean Corpuscular Volume 87.5 fL (80.0-94.0); Mean Platelet Volume 10.4 fL (7.4-10.4); Platelet Count 259 10^3/uL (130-400); Red Blood Cell Count 5.05 10^6/uL (4.70-6.10); Red Cell Dist. Width 12.9 % (11.5-14.5); White Blood Cell Count 7.7 10^3/uL (4.8-10.8)
[2023-11-12 09:22] LABS: Blood Urea Nitrogen 14 mg/dl (9-20); Calcium 9.4 mg/dl (8.4-10.2); Carbon Dioxide 27 mmol/L (22-30); Chloride 102 mmol/L (98-107); Estimated Creatinine Clearance 99 ml/min; Glucose 116 mg/dl (70-99); Phosphorus 3.5 mg/dl (2.5-4.5); Potassium 4.6 mmol/L (3.5-5.1); Sodium 135 mmol/L (135-145); eGFR > 60.00
[2023-11-12] MEDS: VANCOCIN 300 ML IV (11:16)
[2023-11-12] MEDS: VANCOCIN 300 MG IV (11:16)
[2023-11-12 12:02] LABS: Glucose - Point of Care 237 mg/dl (70-99)
[2023-11-12] MEDS: NOVOLOG FLEXPEN-MODERATE RESISTANCE 3 UNITS SC (12:09)
--- NOTE | 2023-11-12 13:07 | W.PN.HOSP.TC ---
Today's Communication/Plan
-
dc to home with VN if agreeable. Podiatry f/u in 1 week
Assessment / Plan
Assessment / Plan
Assessment:
Diabetic Foot Infection with Osteomyelitis of Right 3rd Toe
MRSA screen positive
- Right Foot MRI appreciated Findings consistent with osteomyelitis involving the third digit middle and distal phalanges and intervening septic arthritis of the DIP joint. diffuse osteitis involving the third digit proximal phalanx with probable
early osteomyelitis throughout the proximal phalanx. Osteitis of the fourth digit proximal and middle phalanges without overt osteomyelitis.
- Podiatry eval appreciated OR debridement amputation Rt 3rd toe performed 11/07, ambulate with surgical shoe only, daily wound care on discharge
- OR cx's appreciated Strep agalactiae Haemophilus parainfluenzae
- Bone Pathology Pending
- ID ok'd discharge on Augmentin
Hx Multiple Strokes
- continue Plavix
Diabetes Mellitus, Type II
- HgbA1c 7.1 in Aug 2023
- Continue Lantus
- resume metformin, and Farxiga
- Monitor sugars and continue coverage insulin
Diabetic Neuropathy
- Continue amitriptyline
Left Charcot Foot with Chronic Osteomyelitis
- Patient maintained on chronic doxycycline to be resumed after acute abx above completed
Hyperlipidemia
- Continue atorvastatin
GERD
- Continue Protonix
Mild Hyponatremia nonsignificant
More than 30 minutes spent in discharge including
Final examination of the patient
Summarizing hospital stay
Instructions for continuing care to all relevant caregivers
Preparation of discharge records, prescriptions, and referral forms
Total time spent (in minutes): 45
Anticipated Discharge: Today
Subjective/Interval History
-
Date of Service: November 12, 2023
no new complaints at present
Objective Data
-
Labs:
Laboratory Results
11/12/23
07:57
WBC 7.7
Hgb 14.7
Hct 44.2
Plt Count 259
Sodium 135
Potassium 4.6
Chloride 102
Carbon Dioxide 27
BUN 14
Creatinine 1.0
Glucose 116 H
Calcium 9.4
Vital Signs:
Vital Signs
Temp Pulse Resp BP Pulse Ox
98 F 60 20 138/59 96
11/12/23 07:05 11/12/23 07:05 11/12/23 07:05 11/12/23 07:05 11/12/23 11:29
I&O
11/11/23 11/12/23 11/13/23
06:59 06:59 06:59
Intake Total 2160 / 2160 1500 / 1500
Output Total 1700 / 1700 2375 / 2375
Balance 460 / 460 -875 / -875
Physical Exam
-
General: No Apparent Distress
HEENT: Normocephalic and Atraumatic
Respiratory: Negative Wheezes or Rales
Cardiac: Regular Rhythm and S1/S2
GI: Soft
Neuro: AO x 3
Psych: Calm
Data Reviewed
-
Total Time Spent with Patient (in minutes): 45
Labs: Labs Reviewed by me
--- NOTE | 2023-11-12 13:10 | VNURNOTE ---
Home Health Liaison met with patient at 1230 to discuss [facility] nurse/therapy, visits, schedule and homebound status. Patient is agreeable and understands that visits at home will be 2-3 x per week to assess and teach medical management and wound care.
Patient stated that his could assist with daily wound care on days VN is not there.
[facility] brochure provided with contact information. Patient is aware that [facility] will contact him for start of care in 1-2 days after discharge from .
[facility] referral completed in [facility].
--- NOTE | 2023-11-12 13:13 | W.DS.TRANS ---
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
-
Discharge Instructions:
Discharge Diagnosis/Procedures Diabetic Foot Infection with Osteomyelitis of
Right 3rd Toe s/p amputation 11/07
Diet Diabetic, Carb Controlled
Activity Other activity
Additional Activity Weight bearing with surgical shoe as tolerated
Bathing Restrictions None
Other Services VN
Instructions:
Stand-Alone Forms:
Changes to Home Medications: No
Discharge Medications:
DC Medications w/original date entered in [facility]
atorvastatin 40 mg tablet 40 mg PO DAILY High cholesterol 07/19/16
pantoprazole 40 mg tablet,delayed release 40 mg PO DAILY Gastrointestinal issue 12/02/18
amitriptyline 50 mg tablet 50 mg PO HS Sleep 06/23/20
insulin glargine 100 unit/mL (3 mL) subcutaneous pen (Lantus Solostar U-100 Insulin) 26 units SC HS Diabetes 06/23/20
clopidogrel 75 mg tablet 75 mg PO DAILY Blood clot prevention/tx 06/24/20
metformin 500 mg tablet,extended release 24 hr 2,000 mg PO HS Diabetes 10/16/20
cyanocobalamin (vitamin B-12) 500 mcg tablet (Vitamin B-12) 500 mcg PO DAILY Supplement ##0 01/09/23
ferrous sulfate 325 mg (65 mg iron) tablet 325 mg PO DAILY Supplement ##0 01/09/23
semaglutide 0.25 mg or 0.5 mg (2 mg/3 mL) subcutaneous pen injector (Ozempic) 0.5 mg SC HURST Diabetes 01/09/23
dapagliflozin propanediol 5 mg tablet (Farxiga) 5 mg PO DAILY Diabetes 11/07/23
meclizine 25 mg tablet 25 mg PO Q8H PRN vertigo/dizziness 11/07/23
amoxicillin 875 mg-potassium clavulanate 125 mg tablet 1 tab PO Q12 #10 tabs 11/12/23
doxycycline hyclate 100 mg capsule 100 mg PO BID Infection #60 caps 11/12/23
Home Medication Changes
Pending Results: No
Total time spent discharging patient (in min): 45
[2023-11-12 13:53] VITALS: BP 150/90
--- NOTE | 2023-11-12 13:53 | PTCARENOTE ---
Removed peripheral IV. Reviewed discharge instructions with patient. Patient verbalizes understanding of all teaching. Reviewed dressing change instructions with verbalization of understanding. Needs to follow up in one week with transit department clerk. Patient
awaiting ride home to arrive.
--- NOTE | 2023-11-12 15:36 | CM ---
MD entered order for dc.
SPoke with patient he said he was ready for discharge today.
IMM reviewed and signed on chart.
He requested [facility] Liaison Melly notified via TT.
PLAN Home with [facility]
== END 2023-11-12 14:47 | disposition home health service (06) | DRG 617 ==
LOC: 4 EAST ACU 18:55
PROVIDERS: Emergency Medicine; Physician Assistant; Physician Assistant Medical; ADMITTING PHYSICIAN Internal Medicine; ATTENDING PHYSICIAN Internal Medicine; CONSULT PHYSICIAN Internal Medicine Infectious Disease; CONSULT PHYSICIAN Podiatrist Foot & Ankle Surgery; EMERGENCY PHYSICIAN Emergency Medicine; FAMILY PHYSICIAN Internal Medicine
PROC: 0Y6T0Z1 Detachment at Right 3rd Toe, High, Open Approach (ICD-10-PCS; 2023-11-08)
DX: E11.621 Type 2 diabetes mellitus with foot ulcer (principal); E11.52 Type 2 diabetes mellitus with diabetic peripheral angiopathy with gangrene; L03.115 Cellulitis of right lower limb; L97.419 Non-pressure chronic ulcer of right heel and midfoot with unspecified severity; M86.8X7 Other osteomyelitis, ankle and foot; E87.1 Hypo-osmolality and hyponatremia; E11.69 Type 2 diabetes mellitus with other specified complication; E78.5 Hyperlipidemia, unspecified; K21.9 Gastro-esophageal reflux disease without esophagitis; B95.1 Streptococcus, group B, as the cause of diseases classified elsewhere; Z86.14 Personal history of Methicillin resistant Staphylococcus aureus infection; Z86.73 Personal history of transient ischemic attack (TIA), and cerebral infarction without residual deficits; Z79.02 Long term (current) use of antithrombotics/antiplatelets
CPT/HCPCS: 88304; 88305; 88311; 73620; 73630; 73720; 80048; 80053; 80202; 82962; 83605; 83735; 84100; 85025; 85027; 85652; 86140; 87040; 87070; 87075; 87077; 87147; 87176; 87185; 87205; 97162; 97166; 99284

== ENCOUNTER 2024-05-21 21:17 | Inpatient (IN) | payer MEDICARE, SELFPAY ==
[2024-05-21 18:39] VITALS: BP 187/103
[2024-05-21 18:42] LABS: Glucose - Point of Care 206 mg/dl (70-99)
--- NOTE | 2024-05-21 18:42 | EDRN ---
called stroke alert.
[2024-05-21 18:51] VITALS: BP 162/96
[2024-05-21 18:53] LABS: % Basophils 0.4 % (0-2); % Eosinophils 1.2 % (0-6); % Immature Granulocytes 0.5 % (0-0.5); % Lymphocytes 25.2 % (20.5-51.1); % Monocytes 11.2 % (1.7-9.3); % Neutrophils 61.5 % (42.2-75.2); Absolute Eosinophils 0.1 10^3/uL (0-0.7); Absolute Lymphocytes 1.9 10^3/uL (1.2-3.4); Absolute Monocytes 0.8 10^3/uL (0.1-0.6); Absolute Neutrophils 4.5 10^3/uL (1.4-6.5); Hematocrit 50.2 % (39.0-52.0); Hemoglobin 17.3 g/dL (13.0-18.0); Mean Corp Hgb Conc. 34.5 g/dL (33.0-37.0); Mean Corpuscular Hgb 30.4 pg (27.0-31.0); Mean Corpuscular Volume 88.1 fL (80.0-94.0); Mean Platelet Volume 10.5 fL (7.4-10.4); Nucleated Red Blood Cells % 0 % (-); Platelet Count 221 10^3/uL (130-400); Red Cell Dist. Width 13.8 % (11.5-14.5); White Blood Cell Count 7.4 10^3/uL (4.8-10.8)
--- NOTE | 2024-05-21 19:05 | ED.CVA ---
History of Present Illness
General
Chief Complaint: CVA/TIA Symptoms
Source: patient and spouse
Exam Limitations: none
Time Seen by Provider: 05/21/24 18:44
Nursing documentation reviewed up to this point in time: agreed with
Onset of Stroke Symptoms
Onset of symptoms known: Yes
Date of onset of symptoms: 05/21/24
History of Present Illness
History of Present Illness:
63-year-old male with a past medical history of hyperlipidemia, diabetes, diabetic neuropathy, prior TIA, right eye blindness who presents to the emergency department with his for evaluation of speech disturbance and right arm numbness.
reports that she last saw him normal at about 3 PM. Apparently she came home with her son at around 5:30 PM and was speaking to the patient and noticed that he was having difficulty expressing himself�she says that his speech was gibberish.
Patient says that he felt he had difficulty expressing himself. She brought him to the emergency room to be assessed. While on the way to the emergency room he was complaining of some right arm numbness. Denies any weakness. Denies any acute
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 He denies any headache or neck pain. Since arrival in the ER his symptoms have resolved he is now back to baseline. He is on Plavix no other blood thinners.
Past History
Past History
ED Past Medical History: CVA, GERD, IDDM and Other (Charcot foot, M�ni�re's disease, duodenal ulcer, MRSA, right eye blindness)
ED Past Surgical History: Appendectomy and Orthopedic
Social History
Tobacco: Non-smoker
Alcohol: None
Drug: None
Personal:
Living: with family
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
Family History
Family History: Other (No significant)
Review of Systems
Review of Systems
All Other Systems: ROS reviewed and negative except as documented in HPI and ROS
Constitutional: Denies fever
Respiratory: Denies trouble breathing
Cardiac: Denies chest pain or palpitations
ABD/GI: Denies abdominal pain, nausea or vomiting
: Denies flank pain
Musculoskeletal: Denies neck pain or back pain
Neurological: Reports numbness and other (Speech disturbance); Denies dizzy, headache or weakness
Phy Exam
Physical Exam
Physical Exam:
General: Awake, alert, oriented x3; no acute distress
Head: Normocephalic, atraumatic
Eyes: Right eye prosthesis; left eye conjunctiva normal, extraocular movements intact, pupil round and briskly reactive to light
Throat: Airway intact, handling secretions
Neck: Trachea midline, supple without meningismus
Lungs: Clear to auscultation bilaterally, no wheezing, rales, rhonchi
Heart: Regular rate and rhythm, no murmurs, gallops, or rubs
Abd: Soft, non distended, nontender
Neuro: Cranial nerves intact 2 through 12, speech fluid no dysarthria or aphasia, no limb ataxia, patient has foot drop on the left at baseline but proximal strength intact left lower extremity, strength intact proximally and distally in the rest of
his extremities
Skin: no rash
Extremities: Warm well-perfused with good pulses
Scores
NIH Stroke Score
Level of Consciousness: 0 - Alert
LOC Questions: 0-Answers both correctly
LOC Commands: 0-Performs both correctly
Best Horizontal Gaze: 0-Normal
Visual Garces: 0=Normal, no visual loss
Facial Palsy: 0=Normal, symmetrical
Motor - Right Arm: 0=No drift 10 seconds
Motor - Left Arm: 0=No drift 10 seconds
Motor - Right Le-No drift 5 seconds
Motor - Left Le-No drift 5 seconds
Limb Ataxia: 0-Absent
Sensation: 0-Normal
Best Language: 0-No aphasia
Dysarthria: 0-Normal
Extinction and Inattention: 0-No abnormality
Total Score:: 0
Heart Failure Risk
Heart Failure Risk Score: Not Applicable
Heart Score for Chest Pain Patients
STEMI patient?: Not applicable
Withdrawal Assessment of Alcohol
Withdrawal Assessment Completed?: Not applicable
Course
Orders/Labs/Results
Orders:
Orders
05/21/24 18:38
Electrocardiogram (*1) Urgent
Reason for Study: Other
Other Reason for Exam: Possible Stroke
Bedside Glucose- Treatment ONCE
EKG- Treatment ONCE
IV Insert/Care/Rem.- Treatment PRN
O2 Therapy [RESP] Urgent
Titrate/Wean O2 to maintain O2 sat greater than (%): 93
Special Instructions: MAINTAIN CONTINUOUS O2 SATS > OR = 93%
05/21/24 18:39
CT HEAD STROKE ALERT W/o Cont Urgent
Comment: last seen well @1530
Reason For Exam: cva
05/21/24 18:46
Complete Blood Count/With Diff Urgent
Comprehensive Metabolic Panel Urgent
PTT Urgent
Prothrombin Time Urgent
Troponin I Urgent
05/21/24 19:22
MR Brain W/o & With Contrast Routine
Comment:
Reason For Exam: TIA
OK for patient to be off Cardiac Monitoring for MRI: No
Recent pill cam endoscopy?: No
05/21/24 20:30
Aspirin 325 mg PO NOW STA
05/21/24 20:50
Admit/Transfer Patient As Directed
Co-Sign Provider:
Level of Care: Inpatient admission
Assign to:: Telemetry
Physician / Group: Effie Barnett
Diagnosis: CVA/TIA
Reason for Telemetry: CVA/TIA
Date to Stop Telemetry: 05/24/24
Time to Stop Telemetry: 11:00
Reason for Hospitalization: CVA/TIA
Expected length of stay greater than two midnights?: Yes
ELOS- Estimated Length of Stay in days: 3
I certify the patient meets the requirements for IP care: Yes
PRN Pain Medication Management As Directed
May give lesser potent ordered pain med per pt: Yes
preference::
Protocol:: Medication orders for pain may be administered in a
manner that supports deferring to patient preference
when the pt is:
- Requesting an ordered lesser potent pain medication.
Least to most potent pain medications are defined
as: acetaminophen < NSAID < tramadol < opioids
(morphine, oxycodone, hydromorphone).
- Requesting a lesser dose of the same medication IF
ORDERED.
- Requesting a less intrusive route of administration
if both routes are prescribed by the provider (PO <
IV).
05/21/24 20:54
Code Status As Directed
Resuscitation Status: Full Code
05/21/24 22:04
Acetaminophen [Tylenol/Feverall] 650 mg RECTAL Q4HPRN PRN
Acetaminophen [Tylenol] 650 mg PO Q4HPRN PRN
Dextrose 50%-Water [Dextrose 50% Syringe] 12.5 grams IV [id number] PRN
Famotidine [Pepcid] 40 mg PO HSPRN PRN
Glucagon [GlucaGen] 1 mg IM PRN PRN
05/21/24 22:04
Case Management Consult ONCE
Case Management Consult: Discharge Planning
Comment: stroke/tia
DIETARY CONSULT Routine
Reason for Consult: stroke/TIA
Rn Diabetes Educator Urgent
Activity As Directed
Activity Level: Out of Bed-Early Mobility
Bedside Glucose Monitoring As Directed
Frequency: AC&HS
Additional Instructions:: Change to q6h if pt on TPN, tube feeding or not eating
NIH Stroke Scale As Directed
Directions: Per protocol
Comment: every shift and with any change in condition or mental status
Neurological Checks As Directed
Frequency: q4h
Additional Instructions:: q4h x 24h upon admission to the floor, then qshift & with any change in condition
and mental status
Patient Education As Directed
Type: Stroke education packet
Comment: provide to patient and family
Pneumatic Compression Sleeves As Directed
Type: Knee high
Swallow Screening CVA/TIA ONLY As Directed
Comment: NPO until swallowing screening completed
If patient FAILS swallow screening:: NPO, Speech Therapy consult, Aspiration Precautions
If patient PASSES swallow screening, diet:: 1999 bam/ 17 CHO Diabetic
Vital Signs As Directed
Frequency: Per unit guidelines
Cpap [RESP] Routine
Patient to use own unit?: No
Set Pressure (cm H2O): 7
Instructions: HS & PRN
Titrate PRN
Ot Eval And Treat Routine
Pt Eval And Treat Routine
Activity Level: Out of Bed-Early Mobility
Speech Therapy Eval & Treat Routine
DX Deep Vein Thrombosis Video Routine
05/21/24 23:00
Amitriptyline [Elavil] 50 mg PO HS
05/22/24 06:00
Cardiovascular Evaluation IN AM
Complete Blood Count/No Diff IN AM
Comprehensive Metabolic Panel IN AM
Glycohemoglobin (HgbA1c) IN AM
05/22/24 07:30
Insulin Aspart Corrective Low [Novolog Flexpen-Low Resistance] See Protocol SC AC
05/22/24 08:00
Atorvastatin [Lipitor] 40 mg PO DAILY
Clopidogrel Bisulfate [Plavix] 75 mg PO DAILY
Doxycycline [Vibramycin] 100 mg PO BID
Pantoprazole [Protonix] 20 mg PO DAILY
05/23/24 06:00
Complete Blood Count/No Diff IN AM
Comprehensive Metabolic Panel IN AM
05/24/24 06:00
Complete Blood Count/No Diff IN AM
Comprehensive Metabolic Panel IN AM
05/24/24 11:00
DC Protocol for Telemetry ONCE
Abnormal Lab Results
05/21/24 05/21/24
18:41 18:46
MPV 10.5 H fL
(7.4-10.4)
Absolute Monos (auto) 0.8 H 10^3/uL
(0.1-0.6)
Monocytes % 11.2 H %
(1.7-9.3)
Glucose 167 H mg/dl
(70-99)
Albumin 5.2 H g/dl
(3.5-5.0)
POC Glucose 206 H mg/dl
(70-99)
05/21/24 18:46
05/21/24 18:46
Vital Signs
Initial and Last Documented VS:
Initial Vital Signs
Temp Pulse Resp BP Pulse Ox
36.9 C 88 16 187/103 100
05/21/24 18:39 05/21/24 18:39 05/21/24 18:39 05/21/24 18:39 05/21/24 18:39
Last Documented Vital Signs
Temp Pulse Resp BP Pulse Ox
36.8 C 81 18 166/98 98
05/21/24 22:30 05/21/24 22:30 05/21/24 22:30 05/21/24 22:30 05/21/24 22:30
MDM/Problems Addressed
Differential Diagnosis Includes:
TIA/CVA, complex migraine, seizure, brain mass, brain bleed
MDM/Problems Addressed:
63-year-old male presents for evaluation after episode of expressive aphasia and right arm numbness that lasted about an hour and has since resolved. Hypertensive but otherwise normal vitals. Physical exam as above. Stroke alert was called in
triage although symptoms resolved; NIH stroke scale 0. Case was discussed with neurology at bedside. He was taken for a CT head which was negative for any acute pathology. Labs sent off including a CBC and a CMP which were unremarkable. EKG
shows sinus rhythm. Concern for high risk TIA, will treat with full dose aspirin admit for continued monitoring and workup. Case discussed with hospitalist.
Chronic conditions affecting care:
Hyperlipidemia, diabetes
Acute Exacerbation and/or Progression of Chronic Illness:
Acutely hypertensive
Acute Exacerbation and/or Progression of Chronic Illness: HTN
*Radiology
Radiology exam reviewed: radiology read reviewed
*Pulse Oximetry
Patient hypoxic: no
*EKG
Interpreted by ED Provider?: Yes
Heart Rate: 90
Rate: normal
Rhythm: sinus
[place]: normal axis
Interval: first degree heart block
QRS Pattern: normal QRS
Ischemia: no ischemia
*Critical Care Note
Total Time (30-74mins, 75-104mins- exclusive of procedures): Not Applicable
Data Reviewed
Review of Other/Old Records Reveals: Labs and Records
Source: patient and family
Patient Management
Discussion with other providers: Hospitalist (Discussed with hospitalist), Support Specialist (Discussed with neurology) and Radiologist (Discussed with radiology)
Escalation/DeEscalation of care consider admission/obs:
Admission indicated
ED Attending Note
-
Portions of this chart may have been created with voice recognition software.� Occasional wrong word or��sound alike� substitutions may have occurred due to the inherent limitations of voice recognition software.
Discharge Plan
Departure
Patient Disposition: Admit
Date of Disposition: 05/21/24
Time of Disposition: 20:26
Admit to doctor: Ericka
Presentation/result/management discussed w/ accepting MD/DO: Hospitalist
Discharge Problem:
TIA (transient ischemic attack)
Interventions
Interventions:
*Risk Screen - Suicide Last Done: 05/21/24 18:39
*General Assessment Last Done: 05/21/24 19:08
*Neglect/Abuse Screening Last Done: 05/21/24 18:39
ED- Fall Risk Assessment Last Done: 05/21/24 18:52
*ED COVID-19 Vaccine History Last Done: 05/21/24 19:08
*Nursing Disposition Last Done: 05/21/24 22:22
ED- Pulmonary Assessment Last Done: 05/21/24 18:52
ED- Neurological Assessment Last Done: 05/21/24 18:52
ED- Cardiac Assessment Last Done: 05/21/24 18:52
ED Swallowing Screen Last Done: 05/21/24 20:01
Discharge Date and Time
Discharge Date/Time: 05/21/24 22:22
[2024-05-21 19:09] LABS: INR 0.99; PT 13.1 Sec (11.4-14.6)
--- NOTE | 2024-05-21 19:09 | CON.NEURO ---
Consultation
Order
Date of Consultation: 05/21/24
Requesting Provider: Kobe Saldivar M.D.
Reason for Consult: Stroke alert
Called in at: 18:43
HPI: This is a 63-year-old right-handed man who presented to [facility] on May 04, 2024 with language and sensory deficits. According to patient's spouse he had difficulties expressing his thoughts 'did not make sense '
Mr. Blanton endorses transient right-sided sensory deficits lasting for unspecified duration.
Last time seen in usual state of health around 3:00 PM today.
ER VS: 187/103, 88, afebrile
PDMP:none
Labs: Glucose�206, normal sodium, creatinine, WBCs
CT head-mod atrophy, advanced for patient's age.
Brain MRI wo clifton(09/08/2021)- small subacute lacunar infarct in the left frontal centrum semiovale, chronic infarcts in the dominga, right cerebral peduncle, right frontal lobe centrum semiovale, and posterior right frontal lobe
Head MRA(09/15/2021)-no intracranial stenoses.
PMH: R frontal meningioma, left frontal centrum semiovale stroke(08/2021), HTN, DLP, DM, L RCC, M�ni�re's disease, BASHIR , Vitamin B 12 deficiency, h/o R endophthalmitis(2020), h/o R CRAO, Charcot foot
PSH: partial left nephrectomy, right 3rd toe amputation, R eye enucleation, appendectomy
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; no history of excessive ETOH use; administers medications independently
FH: no FH of LASER MACHINE OPERATOR demyelinating disease
All:NKDA
ROS:positive for transient dysphasia and sensory symptoms, chronic hearing impairment
Assessment and Plan:
I. Hypertensive emergency
II. Vascular encephalopathy, not a candidate for IV thrombolysis due to symptoms resolution.
III. Chronic multiarterial infarcts
IV. Schmorl's nodes at T8, T9,T12 levels
-Continue Telemetry monitoring.
-Aspiration precautions.
-Cautious lowering of BP by approximately 15 % during the first 24 hours is SBP >220 mmHg or diastolic blood pressure >120 mmHg;
-Restart antihypertensive medications during if BP>140/90 mmHg who are neurologically stable in 24 to 48 hours after stroke onset;
-TTE with bubble studies
-Brain MRI w/wo clifton
-WIll consider Brilinta
-Continue ASA 81 mg QD, Plavix 75 mg QD
-Lipitor 40 mg QHS.
-Please check HbA1C, LDL.
-PT.
-DVT prophylaxis.
I personally reviewed all radiology and labs along with past medical records pertinent to current medical problems. Total time spent in patient care is 55 minutes.
Thank you for allowing us to participate in the care of this patient. We will continue to follow. Please do not hesitate to contact us with any questions or concerns.
Subjective/Objective
Subjective Data
Date of Service: May 21, 2024
Objective Data
Vital Signs
Temp Pulse Resp BP Pulse Ox
36.9 C 94 19 187/103 100
05/21/24 18:39 05/21/24 18:49 05/21/24 18:49 05/21/24 18:39 05/21/24 18:39
Lab Results
05/21/24 18:46
Patient Allergies
No Known Allergies Allergy (Verified 05/21/24 18:38)
CVA Assessment
NIH Stroke Score
Level of Consciousness: 0 - Alert
LOC Commands: 0-Performs both correctly
Best Horizontal Gaze: 0-Normal
Visual Garces: 0=Normal, no visual loss
Facial Palsy: 0=Normal, symmetrical
Motor - Right Arm: 0=No drift 10 seconds
Explanation of amputation/joint fusion: R eye enucleation
Motor - Left Arm: 0=No drift 10 seconds
Motor - Right Le-No drift 5 seconds
Motor - Left Le-No drift 5 seconds
Limb Ataxia: 0-Absent
Sensation: 0-Normal
Dysarthria: 0-Normal
Extinction and Inattention: 0-No abnormality
Medications
-
Home Medications
�Medication �Instructions �Recorded
atorvastatin 40 mg tablet 40 mg PO DAILY High cholesterol 07/19/16
insulin glargine 100 unit/mL (3 26 units SC HS Diabetes 06/23/20
mL) subcutaneous pen (Lantus
Solostar U-100 Insulin)
clopidogrel 75 mg tablet 75 mg PO DAILY Blood clot 06/24/20
prevention/tx
metformin 500 mg tablet,extended 2,000 mg PO HS Diabetes 10/16/20
release 24 hr
cyanocobalamin (vitamin B-12) 500 500 mcg PO DAILY Supplement ##0 01/09/23
mcg tablet (Vitamin B-12)
semaglutide 0.25 mg or 0.5 mg (2 0.5 mg SC HURST Diabetes 01/09/23
mg/3 mL) subcutaneous pen injector
(Ozempic)
doxycycline hyclate 100 mg capsule 100 mg PO BID Infection #60 caps 11/12/23
amitriptyline 25 mg tablet 50 mg PO HS 05/21/24
famotidine 40 mg tablet 40 mg PO HSPRN PRN heartburn 05/21/24
pantoprazole 20 mg tablet,delayed 20 mg PO DAILY 05/21/24
release
Vital Signs and Labs
-
Vital Signs and Labs:
Vital Signs
Temp Pulse Resp BP Pulse Ox
36.7 C 64 16 143/74 98
05/22/24 07:56 05/22/24 07:56 05/22/24 07:56 05/22/24 07:56 05/22/24 07:56
Lab Results
05/22/24 05:58
05/22/24 05:58
PT 13.1 Sec (11.4-14.6) 05/21/24 18:46
INR 0.99 05/21/24 18:46
APTT 30.0 Sec (23.4-35.0) 05/21/24 18:46
Sodium 142 mmol/L (135-145) 05/22/24 05:58
Potassium 3.8 mmol/L (3.5-5.1) 05/22/24 05:58
BUN 14 mg/dl (9-20) 05/22/24 05:58
Glucose 107 mg/dl (70-99) H 05/22/24 05:58
Calcium 9.2 mg/dl (8.4-10.2) 05/22/24 05:58
LDL Cholesterol, Calc 46 mg/dl 05/22/24 05:58
Medications
-
Medications:
Generic Name Dose Route Start Last Admin
Trade Name Freq PRN Reason Stop Dose Admin
Acetaminophen 650 mg 05/21/24 22:04
Acetaminophen 650 Mg Rectal Suppository RECTAL 06/18/24 22:03
Q4HPRN PRN
GERARDO, mild pain, or temp >100.4F
Acetaminophen 650 mg 05/21/24 22:04
Acetaminophen 325 Mg Tablet PO 06/18/24 22:03
Q4HPRN PRN
GERARDO, mild pain, or temp >100.4F
Amitriptyline HCl 50 mg 05/21/24 23:00 05/21/24 23:36
Amitriptyline 50 Mg Tablet PO 06/18/24 22:59 50 mg
HS MARIO Administration
Atorvastatin Calcium 40 mg 05/22/24 08:00 05/22/24 08:15
Atorvastatin (Lipitor) 40 Mg Tablet PO 06/19/24 07:59 40 mg
DAILY MARIO Administration
Clopidogrel Bisulfate 75 mg 05/22/24 08:00 05/22/24 08:16
Clopidogrel 75 Mg Tablet PO 06/19/24 07:59 75 mg
DAILY MARIO Administration
Dextrose 12.5 grams 05/21/24 22:04
Dextrose 50% (0.5 Grams/Ml) 50 Ml Syringe IV 06/18/24 22:03
[id number] PRN
hypoglycemia
Protocol
Doxycycline Hyclate 100 mg 05/22/24 08:00 05/22/24 08:16
Doxycycline 100 Mg Capsule PO 100 mg
BID MARIO Administration
Famotidine 40 mg 05/21/24 22:04
Famotidine 40 Mg Tablet PO 06/18/24 22:03
HSPRN PRN
heartburn
Glucagon 1 mg 05/21/24 22:04
Glucagon 1 Mg Vial IM 06/18/24 22:03
PRN PRN
hypoglycemia
Protocol
Insulin Glargine 20 units/ 0.2 mls @ 0 mls/hr 05/21/24 23:00 05/21/24 23:36
Device SC 06/18/24 22:59 0.2 mls
HS MARIO Administration
As Directed
Insulin Aspart 0 units 05/22/24 07:30 05/22/24 08:19
Insulin Aspart Low Resistance 300 Units/3 Ml Pen.Injctr SC 06/19/24 07:29 Not Given
AC MARIO
Protocol
Pantoprazole Sodium 20 mg 05/22/24 08:00 05/22/24 08:16
Pantoprazole 20 Mg Delayed Release Tablet PO 06/19/24 07:59 20 mg
DAILY MARIO Administration
Sodium Chloride 0 flush 05/21/24 23:00
Sodium Chloride 0.9% (Flush) Syringe IV 06/18/24 22:59
PER PROTOCOL MARIO
Home Medications
-
Home Medications
atorvastatin 40 mg tablet 40 mg PO DAILY High cholesterol 07/19/16
insulin glargine 100 unit/mL (3 mL) subcutaneous pen (Lantus Solostar U-100 Insulin) 26 units SC HS Diabetes 06/23/20
clopidogrel 75 mg tablet 75 mg PO DAILY Blood clot prevention/tx 06/24/20
metformin 500 mg tablet,extended release 24 hr 2,000 mg PO HS Diabetes 10/16/20
cyanocobalamin (vitamin B-12) 500 mcg tablet (Vitamin B-12) 500 mcg PO DAILY Supplement ##0 01/09/23
semaglutide 0.25 mg or 0.5 mg (2 mg/3 mL) subcutaneous pen injector (Ozempic) 0.5 mg SC HURST Diabetes 01/09/23
doxycycline hyclate 100 mg capsule 100 mg PO BID Infection #60 caps 11/12/23
amitriptyline 25 mg tablet 50 mg PO HS 05/21/24
famotidine 40 mg tablet 40 mg PO HSPRN PRN heartburn 05/21/24
pantoprazole 20 mg tablet,delayed release 20 mg PO DAILY 05/21/24
[2024-05-21 19:10] LABS: ALT (SGPT) 39 U/L (0-50); AST (SGOT) 29 U/L (17-59); Albumin 5.2 g/dl (3.5-5.0); Alkaline Phosphatase 87 U/L (38-126); Blood Urea Nitrogen 16 mg/dl (9-20); Calcium 10.2 mg/dl (8.4-10.2); Carbon Dioxide 28 mmol/L (22-30); Chloride 99 mmol/L (98-107); Glucose 167 mg/dl (70-99); Potassium 4.3 mmol/L (3.5-5.1); Sodium 143 mmol/L (135-145); Total Bilirubin 0.7 mg/dl (0.2-1.3); eGFR > 60.00
[2024-05-21 19:23] LABS: Troponin I < 0.012 ng/ml
[2024-05-21 20:00] VITALS: BP 146/97
[2024-05-21] MEDS: ASPIRIN 325 MG PO (20:33)
--- NOTE | 2024-05-21 20:55 | HPS.HSE ---
Family Physician
-
Family Physician: Quentin Wesley
Chief Complaint
-
Expressive aphasia for 1 hour
History of Present Illness
Is a 62-year-old male with past medical history of insulin-dependent diabetes, hypertension, ABSHIR on CPAP, prior CVA and TIAs, meniere, Charcot foot status post surgery on chronic bacterial suppression who presents to the emergency department from
home with episode of expressive aphasia.
Patient reports symptoms may have began at around 3 PM today. He reported some numbness on his right upper extremity. Later on around 4 to 5 PM started having expressive aphasia. reports fluent but disorganized speech. Patient appeared
confused. Patient himself realizes that a speech was not coming out the way intended. Was forcing himself to speak clearly but the words were coming out jumbled. He denied any blurry vision or double vision. He denied any nausea or vomiting. He
denied palpitations. He denied any chest pain shortness of breath diaphoresis. No facial asymmetry confirmed. On arrival to the emergency department speech currently improved. When he was speaking to him he was back at his baseline without any
focal neurological deficits.
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
In the emergency department patient was afebrile, he was hemodynamically stable and in no acute distress. CBC was within normal limits. Chemistries were all within normal limits. Glucose was slightly elevated at 206. CT of the head shows no
acute interval changes. ECG with normal sinus rhythm at rate of 90 and 4 degree AV block which was unchanged from prior.
Medical History
Past Medical History
Past Medical History: Reports CVA (Multiple CVA and TIA) and IDDM
Additional Past Medical History:
Chronic osteomyelitis/Charcot foot on the left
BASHIR on CPAP
Past Surgical History: Reports Orthopedic
Social History
Tobacco: Non-smoker
Alcohol: None
Drug: None
Personal:
Living: With Family
Employment: Employed
Family History
Family History: Not pertinent
Allergies / Home Medications
Allergies reflects when Allergies were last updated in [id number].
Home Medications with original date entered in [id number]
Allergy/Medication List:
Allergies
Allergy/AdvReac Type Severity Reaction Status Date / Time
No Known Allergies Allergy Verified 05/21/24 18:38
Home Medications
atorvastatin 40 mg tablet 40 mg PO DAILY High cholesterol 07/19/16
insulin glargine 100 unit/mL (3 mL) subcutaneous pen (Lantus Solostar U-100 Insulin) 26 units SC HS Diabetes 06/23/20
clopidogrel 75 mg tablet 75 mg PO DAILY Blood clot prevention/tx 06/24/20
metformin 500 mg tablet,extended release 24 hr 2,000 mg PO HS Diabetes 10/16/20
cyanocobalamin (vitamin B-12) 500 mcg tablet (Vitamin B-12) 500 mcg PO DAILY Supplement ##0 01/09/23
semaglutide 0.25 mg or 0.5 mg (2 mg/3 mL) subcutaneous pen injector (Ozempic) 0.5 mg SC HURST Diabetes 01/09/23
doxycycline hyclate 100 mg capsule 100 mg PO BID Infection #60 caps 11/12/23
amitriptyline 25 mg tablet 50 mg PO HS 05/21/24
famotidine 40 mg tablet 40 mg PO HSPRN PRN heartburn 05/21/24
pantoprazole 20 mg tablet,delayed release 20 mg PO DAILY 05/21/24
Review of Systems
-
History Source: Patient
Constitutional: Reports No Symptoms
EENT: Reports No Symptoms
Respiratory: Reports No Symptoms
Cardiac: Reports No Symptoms
Abdomen/GI: Reports No Symptoms
: Reports No Symptoms
Musculoskeletal: Reports No Symptoms
Skin: Reports No Symptoms
Neurological: Reports Other (Speech disturbance)
Endocrine: Reports No Symptoms
Hematologic/Lymphatic: Reports No Symptoms
Psych: Reports No Symptoms
Physical Exam
Vital Signs
Vital Signs
Temp Pulse Resp BP Pulse Ox
98.4 F 85 23 146/97 97
05/21/24 18:39 05/21/24 20:15 05/21/24 19:00 05/21/24 20:00 05/21/24 20:15
Physical Exam
General: Well Developed, Well Nourished, No Apparent Distress and Comfortable
HEENT: NormoCephalic, Anicteric, Moist mucous membranes, Atraumatic and Good Dentition
Respiratory: Clear
Cardiac: S1/S2 and Regular Rhythm
GI: Soft, Non Tender, Non Distended and Normal Bowel Sounds
Rectal: Deferred by Provider
Genito-urinary: Deferred by me
Musculoskeletal: No Clubbing, No Cyanosis and No Edema
Skin: Warm
Neuro: AO x 3, No Motor Deficits, Cranial Nerves Intact (Known blindness of right eye, artificial eye in place) and No Sensory Deficits
Hematologic/Lymphatic: No Lymphadenopathy
Psych: Calm and Intact Judgment/Insight
Laboratory Results
-
05/21/24 18:46
05/21/24 18:46
Laboratory Results
PT 13.1 Sec (11.4-14.6) 05/21/24 18:46
INR 0.99 05/21/24 18:46
APTT 30.0 Sec (23.4-35.0) 05/21/24 18:46
Total Bilirubin 0.7 mg/dl (0.2-1.3) 05/21/24 18:46
AST 29 U/L (17-59) 05/21/24 18:46
ALT 39 U/L (0-50) 05/21/24 18:46
Alkaline Phosphatase 87 U/L (38-126) 05/21/24 18:46
Troponin I < 0.012 ng/ml 05/21/24 18:46
Data Reviewed
-
CT Scan: Report Reviewed by me
Medical Tests (Nuc Med, Echo, EKG etc): Image Personally Visualized and interpreted
Lab Data: Labs Reviewed by me
Old Records: Reviewed
Impression/Plan
-
IMPRESSION:
63 M with h/o CVA and TIAs (last episode within last year) on plavix/statin, DM II on insulin presenting with 1 hour episode of expressive aphasia now resolved.
PLAN:
1. CVA/TIA - Recurrent episode, TIA at this point.
- admit to telemetry
- seen by neuro, asa 325 given
- continue statin and plavix
- mri, mra, echo in am , prior angiographic studies negative
- lipid panel a1c in am
- tolerating po
2. DM II
- lantus 20 hs for now (26 at home)
- sliding scale insulin
- continue metform hs
3. Charcoat foot
- continue doxycycline
4. Menieres
- continue amitriptyline, prn meclizine
5. BASHIR
- CPAP 7 HS
DVT PPX - lovenox sq
Code Status - Full code
[2024-05-21 22:30] VITALS: BP 166/98; BMI 30.6
[2024-05-21 22:44] LABS: Glucose - Point of Care 112 mg/dl (70-99)
[2024-05-21] MEDS: ELAVIL 50 MG PO (23:36)
[2024-05-21] MEDS: LANTUS 0.2 UNITS SC (23:36)
--- NOTE | 2024-05-21 23:45 | PTCARENOTE ---
Pt. arrived via stretcher to 3W and ambulated to bed. Assessment and admission completed by RN. Baseline [facility] check obtained- WDL. VSS. Pt states no further requests at this time.
[2024-05-22] VITALS (7 sets, daily range): BP systolic 132–154; BP diastolic 70–91; PULSE 69; O2SAT 99
[2024-05-22 06:29] LABS: Hematocrit 44.3 % (39.0-52.0); Hemoglobin 15.2 g/dL (13.0-18.0); Mean Corp Hgb Conc. 34.3 g/dL (33.0-37.0); Mean Corpuscular Hgb 29.3 pg (27.0-31.0); Mean Corpuscular Volume 85.4 fL (80.0-94.0); Mean Platelet Volume 10.7 fL (7.4-10.4); Platelet Count 207 10^3/uL (130-400); Red Blood Cell Count 5.19 10^6/uL (4.70-6.10); Red Cell Dist. Width 13.6 % (11.5-14.5); White Blood Cell Count 7.1 10^3/uL (4.8-10.8)
[2024-05-22 06:46] LABS: ALT (SGPT) 34 U/L (0-50); AST (SGOT) 26 U/L (17-59); Albumin 4.2 g/dl (3.5-5.0); Alkaline Phosphatase 85 U/L (38-126); Blood Urea Nitrogen 14 mg/dl (9-20); Calcium 9.2 mg/dl (8.4-10.2); Carbon Dioxide 26 mmol/L (22-30); Chloride 101 mmol/L (98-107); Estimated Creatinine Clearance 96 ml/min; Glucose 107 mg/dl (70-99); HDL Cholesterol 37 mg/dl; LDL Cholesterol, Calculated 46 mg/dl; Potassium 3.8 mmol/L (3.5-5.1); Sodium 142 mmol/L (135-145); Total Bilirubin 0.8 mg/dl (0.2-1.3); Total Cholesterol 111 mg/dl (50-199); Total Protein 6.6 g/dl (6.3-8.2); Triglyceride 144 mg/dl (10-149); Very Low Density Lipoprotein 28 mg/dl (0-30); eGFR > 60.00
[2024-05-22] MEDS: LIPITOR 40 MG PO (08:15)
[2024-05-22] MEDS: VIBRAMYCIN 100 MG PO ×2 (08:16→20:09)
[2024-05-22] MEDS: PLAVIX 75 MG PO (08:16)
[2024-05-22] MEDS: PROTONIX 20 MG PO (08:16)
[2024-05-22 08:20] LABS: Glucose - Point of Care 99 mg/dl (70-99)
[2024-05-22 08:53] LABS: Glycohemoglobin (HgbA1c) 5.9 % (4.0-5.6)
--- NOTE | 2024-05-22 08:53 | W.PN.HOSP.TC ---
Today's Communication/Plan
-
pending MRI and further neurology eval
Assessment / Plan
Assessment / Plan
63yo M with PMHx of R prosthetic eye, DM, R 2nd toe amputation, L anckle Charcot, L toes amputaion with PMHx of OM on chronic Doxy, HLD, L renal carcinoma came with 4 hours of transient dysarthria. Patient had similar symptoms before. Curently not
consistent with taking daily ASA due to conflicting physician recommnedations (as per patient).
B/L feet examined - no wounds or redness seen
A/P:
#TIA/CVA
#1.1 cm homogeneously enhancing extra-axial right frontal region mass, probable meningioma
CTA head and neck from august 2023 showed less then 50% b/l carotid stensosis
Echo in Aug 2023 - no PFO, preserved EF
cont telemetry, no clinicaly significant arrhythmia on EKG
Neurology consult
CT head showed no acute intracranial abnormality
MRI brain with and without contrast pending
ASA, Plavix, Statin
LDL WNL
HgbA1c and TSH pending
#DM type 2 with neuropathy
Accuchecks, Insulin SS, cont home insulin regimen, DM diet
#GERD
#Hx of OM
#Insomnia
cont home meds
DVT ppx SCDs
FUll code
I have spent at least 59min reviewing the chart, test results, communication with consultants and direct patient care
Anticipated Discharge: Within 24 hours
Subjective/Interval History
-
Date of Service: May 22, 2024
Objective Data
-
Labs:
Laboratory Results
05/22/24
05:58
WBC 7.1
Hgb 15.2
Hct 44.3
Plt Count 207
Sodium 142
Potassium 3.8
Chloride 101
Carbon Dioxide 26
BUN 14
Creatinine 1.0
Glucose 107 H
Calcium 9.2
Total Bilirubin 0.8
AST 26
ALT 34
Alkaline Phosphatase 85
Vital Signs:
Vital Signs
Temp Pulse Resp BP Pulse Ox
98.1 F 64 16 143/74 98
05/22/24 07:56 05/22/24 07:56 05/22/24 07:56 05/22/24 07:56 05/22/24 07:56
I&O
05/21/24 05/22/24 05/23/24
06:59 06:59 06:59
Intake Total 480 / 480
Balance 480 / 480
Review of Systems
-
History Source: Patient
All other systems: Reviewed and negative
Physical Exam
-
General: No Apparent Distress
HEENT: Normocephalic
Respiratory: Clear to Auscultation
Cardiac: Regular Rhythm
GI: Nontender and Nondistended
Musculoskeletal: No Clubbing, No Cyanosis and No Edema
Skin: Warm; Negative Ulcers or Lesions
Neuro: Awake, Alert, Oriented and AO x 3
Psych: Calm
[2024-05-22 08:54] LABS: TSH Reflex To Free T4 1.81 uIU/ml (0.47-4.68)
--- NOTE | 2024-05-22 09:41 | W.PN.NEURO.1 ---
Today's Communication / Plan
-
.
Subjective/Objective
Subjective Data
Date of Service: May 22, 2024
Mr. Blanton reports no complaints. He is uncertain about the reasons that lead to his hospitalization. BP has improved, remains afebrile.
EKst degree of AVB, QTc Int : 437 ms
HbA1C 5.9, LDL-46.
PMH: R frontal meningioma, left frontal centrum semiovale stroke(08/2021), HTN, DLP, DM, L RCC, M�ni�re's disease, BASHIR , Vitamin B 12 deficiency, h/o R endophthalmitis(2020), h/o R CRAO, Charcot foot
PSH: partial left nephrectomy, right 3rd toe amputation, R eye enucleation, appendectomy
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
FH: no FH of RETAIL SUPERVISOR demyelinating disease
All:NKDA
ROS:positive for transient dysphasia and sensory symptoms, chronic hearing impairment, intermittent vertigo and imbalance
General: Well developed. In no acute distress.
Cardio: Regular rate and rhythm without murmur. Extremities are without cyanosis or edema.
Neuro:
Mental Status: Alert, oriented to person, place, and date. Poor attention and comprehension (partially due to hearing impairment. Follows complex requests. Unable to do serial sevens or spell world backwards.
Cranial Nerves: OS-reactive, EOMs full on the L Visual levi full to confrontation on prabhjot L. No ptosis. No nystagmus. Face symmetric. Poor hearing AU. The palate elevated well. SCMs and traps 5/5. Tongue midline. No dysarthria.
Motor: Normal bulk and tone. No pronator or arm drift. Strength 5/5 throughout, except for L DF? No clonus.
Sensory: Reduced vibration at the toes
Coordination: No dysmetria or tremor.
Gait: deferred
BL pes cavus
Assessment and Plan:
I. Encephalopathy(vascular, neurodegenerative?)
II. R frontal meningioma
III. Chronic multi territorial infarcts
IV. Schmorl's nodes at T8, T9,T12 levels
V. Distal symmetric polyneuropathy
-Continue Telemetry monitoring.
-TTE with bubble studies
-Brain MRI w/wo clifton
-Will consider Brilinta if acute infarcts found
-Continue ASA 81 mg QD, Plavix 75 mg QD
-Lipitor 40 mg QHS.
-Routine EEG
-OP neuropsychological evaluation
-Medication administration supervision
-PT.
-DVT prophylaxis.
I personally reviewed all radiology and labs along with past medical records pertinent to current medical problems. Total time spent in patient care is 55 minutes.
Thank you for allowing us to participate in the care of this patient. We will continue to follow. Please do not hesitate to contact us with any questions or concerns.
Objective Data
Vital Signs
Temp Pulse Resp BP Pulse Ox
36.7 C 64 16 143/74 98
05/22/24 07:56 05/22/24 07:56 05/22/24 07:56 05/22/24 07:56 05/22/24 07:56
Lab Results
05/22/24 05:58
05/22/24 05:58
PT 13.1 Sec (11.4-14.6) 05/21/24 18:46
INR 0.99 05/21/24 18:46
APTT 30.0 Sec (23.4-35.0) 05/21/24 18:46
Sodium 142 mmol/L (135-145) 05/22/24 05:58
Potassium 3.8 mmol/L (3.5-5.1) 05/22/24 05:58
BUN 14 mg/dl (9-20) 05/22/24 05:58
Glucose 107 mg/dl (70-99) H 05/22/24 05:58
Calcium 9.2 mg/dl (8.4-10.2) 05/22/24 05:58
LDL Cholesterol, Calc 46 mg/dl 05/22/24 05:58
Patient Allergies
No Known Allergies Allergy (Verified 05/21/24 18:38)
Vital Signs and Labs
-
Vital Signs and Labs:
Vital Signs
Temp Pulse Resp BP Pulse Ox
36.7 C 64 16 143/74 98
05/22/24 07:56 05/22/24 07:56 05/22/24 07:56 05/22/24 07:56 05/22/24 07:56
Lab Results
05/22/24 05:58
05/22/24 05:58
PT 13.1 Sec (11.4-14.6) 05/21/24 18:46
INR 0.99 05/21/24 18:46
APTT 30.0 Sec (23.4-35.0) 05/21/24 18:46
Sodium 142 mmol/L (135-145) 05/22/24 05:58
Potassium 3.8 mmol/L (3.5-5.1) 05/22/24 05:58
BUN 14 mg/dl (9-20) 05/22/24 05:58
Glucose 107 mg/dl (70-99) H 05/22/24 05:58
Calcium 9.2 mg/dl (8.4-10.2) 05/22/24 05:58
LDL Cholesterol, Calc 46 mg/dl 05/22/24 05:58
Medications
-
Medications:
Generic Name Dose Route Start Last Admin
Trade Name Freq PRN Reason Stop Dose Admin
Acetaminophen 650 mg 05/21/24 22:04
Acetaminophen 650 Mg Rectal Suppository RECTAL 06/18/24 22:03
Q4HPRN PRN
GERARDO, mild pain, or temp >100.4F
Acetaminophen 650 mg 05/21/24 22:04
Acetaminophen 325 Mg Tablet PO 06/18/24 22:03
Q4HPRN PRN
GERARDO, mild pain, or temp >100.4F
Amitriptyline HCl 50 mg 05/21/24 23:00 05/21/24 23:36
Amitriptyline 50 Mg Tablet PO 06/18/24 22:59 50 mg
HS MARIO Administration
Aspirin 81 mg 05/22/24 10:00
Aspirin 81 Mg Chewable Tablet PO 06/19/24 09:59
DAILY MARIO
Atorvastatin Calcium 40 mg 05/22/24 08:00 05/22/24 08:15
Atorvastatin (Lipitor) 40 Mg Tablet PO 06/19/24 07:59 40 mg
DAILY MARIO Administration
Clopidogrel Bisulfate 75 mg 05/22/24 08:00 05/22/24 08:16
Clopidogrel 75 Mg Tablet PO 06/19/24 07:59 75 mg
DAILY MARIO Administration
Dextrose 12.5 grams 05/21/24 22:04
Dextrose 50% (0.5 Grams/Ml) 50 Ml Syringe IV 06/18/24 22:03
[id number] PRN
hypoglycemia
Protocol
Doxycycline Hyclate 100 mg 05/22/24 08:00 05/22/24 08:16
Doxycycline 100 Mg Capsule PO 100 mg
BID MARIO Administration
Famotidine 40 mg 05/21/24 22:04
Famotidine 40 Mg Tablet PO 06/18/24 22:03
HSPRN PRN
heartburn
Glucagon 1 mg 05/21/24 22:04
Glucagon 1 Mg Vial IM 06/18/24 22:03
PRN PRN
hypoglycemia
Protocol
Insulin Glargine 20 units/ 0.2 mls @ 0 mls/hr 05/21/24 23:00 05/21/24 23:36
Device SC 06/18/24 22:59 0.2 mls
HS MARIO Administration
As Directed
Insulin Aspart 0 units 05/22/24 07:30 05/22/24 08:19
Insulin Aspart Low Resistance 300 Units/3 Ml Pen.Injctr SC 06/19/24 07:29 Not Given
AC MARIO
Protocol
Pantoprazole Sodium 20 mg 05/22/24 08:00 05/22/24 08:16
Pantoprazole 20 Mg Delayed Release Tablet PO 06/19/24 07:59 20 mg
DAILY MARIO Administration
Sodium Chloride 0 flush 05/21/24 23:00
Sodium Chloride 0.9% (Flush) Syringe IV 06/18/24 22:59
PER PROTOCOL MARIO
Home Medications
-
Home Medications
atorvastatin 40 mg tablet 40 mg PO DAILY High cholesterol 07/19/16
insulin glargine 100 unit/mL (3 mL) subcutaneous pen (Lantus Solostar U-100 Insulin) 26 units SC HS Diabetes 06/23/20
clopidogrel 75 mg tablet 75 mg PO DAILY Blood clot prevention/tx 06/24/20
metformin 500 mg tablet,extended release 24 hr 2,000 mg PO HS Diabetes 10/16/20
cyanocobalamin (vitamin B-12) 500 mcg tablet (Vitamin B-12) 500 mcg PO DAILY Supplement ##0 01/09/23
semaglutide 0.25 mg or 0.5 mg (2 mg/3 mL) subcutaneous pen injector (Ozempic) 0.5 mg SC HURST Diabetes 01/09/23
doxycycline hyclate 100 mg capsule 100 mg PO BID Infection #60 caps 11/12/23
amitriptyline 25 mg tablet 50 mg PO HS 05/21/24
famotidine 40 mg tablet 40 mg PO HSPRN PRN heartburn 05/21/24
pantoprazole 20 mg tablet,delayed release 20 mg PO DAILY 05/21/24
[2024-05-22] MEDS: LOW STRENGTH ASPIRIN 81 MG PO (11:29)
[2024-05-22 13:22] LABS: Glucose - Point of Care 125 mg/dl (70-99)
--- NOTE | 2024-05-22 13:39 | EEGC.RPT ---
Continuous EEG Report
Recording
Start Date of Data Reviewed: 05/22/24
End Date of Data Reviewed: 05/22/24
Done with Video Recording: Yes
Report
TECHNICAL REMARKS:��This is a technically satisfactory eighteen channel record employing 21 disc electrodes applied according to a measured international 10-20 electrode placement system.��There were no significant technical difficulties.��The study
was done on a Site Lock System.
�
CLINICAL INFORMATION: ��This is a 63 year old man with encephalopathy. This study was requested to look for epileptiform activity.
�
�MEDICATIONS: �no AED
�
REPORT: �At the onset of the EEG, the patient is awake. The background activity consists of 7.5-8 Hz, persistent, posteriorly dominant, moderate amplitude, symmetric, and rhythmic activity. Anteriorly, it consists of a mixture of low voltage
indeterminate activity and 20-25 Hz, persistent, low amplitude, symmetric, and rhythmic activity. Intermittent generalized 1.5-2 Hz 15-20 microvolts activity lasting for 1-2 seconds with maximal amplitude in the bifrontal area is present. Stepwise
intermittent photic stimulation (1-20 Hz) does not induce any abnormalities. Hyperventilation is not performed. Drowsiness is characterized by low amplitude mixed frequency activity, roving eye movements, and decreased eye blinking and muscle
artifact.
�
�IMPRESSION: �This is an abnormal awake and drowsy EEG due to a background slowing and intermittent diffuse slowing indicating the presence of a moderate encephalopathy, but nonspecific in terms of etiology. There is no evidence of focal slowing or
epileptiform activity.
STUDY DURATION:� 31 min,�38 secs
--- NOTE | 2024-05-22 14:25 | PTOTSP ---
Speech Language Pathology
Pt seen for cognitive-linguistic evaluation via the [facility] Mental Status (UMS) Examination. Pt with a score of 13/30 where normal range is 26-30. Mod cognitive deficits noted. Pt stated this is baseline. Short-term memory
deficits were noted by [employer] on evaluation during admission in 2018. MRI negative for acute process.
Consider outpatient cognitive therapy with [employer] [facility]. [employer] [facility] to sign off in this level of care. Please reconsult as indicated.
[2024-05-22 16:51] LABS: Glucose - Point of Care 134 mg/dl (70-99)
[2024-05-22] MEDS: ELAVIL 50 MG PO (21:27)
[2024-05-22] MEDS: LANTUS 0.2 UNITS SC (21:27)
[2024-05-22 22:03] LABS: Glucose - Point of Care 127 mg/dl (70-99)
[2024-05-23 03:10] VITALS: BP 136/75
[2024-05-23 06:22] LABS: Hematocrit 46.4 % (39.0-52.0); Hemoglobin 16.1 g/dL (13.0-18.0); Mean Corp Hgb Conc. 34.7 g/dL (33.0-37.0); Mean Corpuscular Hgb 29.3 pg (27.0-31.0); Mean Corpuscular Volume 84.5 fL (80.0-94.0); Mean Platelet Volume 10.9 fL (7.4-10.4); Platelet Count 208 10^3/uL (130-400); Red Blood Cell Count 5.49 10^6/uL (4.70-6.10); Red Cell Dist. Width 13.5 % (11.5-14.5); White Blood Cell Count 9.3 10^3/uL (4.8-10.8)
[2024-05-23 06:47] LABS: ALT (SGPT) 37 U/L (0-50); AST (SGOT) 28 U/L (17-59); Albumin 4.3 g/dl (3.5-5.0); Alkaline Phosphatase 90 U/L (38-126); Blood Urea Nitrogen 16 mg/dl (9-20); Calcium 9.4 mg/dl (8.4-10.2); Carbon Dioxide 25 mmol/L (22-30); Chloride 101 mmol/L (98-107); Estimated Creatinine Clearance 96 ml/min; Glucose 123 mg/dl (70-99); Sodium 140 mmol/L (135-145); Total Protein 6.8 g/dl (6.3-8.2); eGFR > 60.00
[2024-05-23 07:49] VITALS: BP 129/69
[2024-05-23 08:00] LABS: Glucose - Point of Care 115 mg/dl (70-99)
[2024-05-23] MEDS: LIPITOR 40 MG PO (09:02)
[2024-05-23] MEDS: PROTONIX 20 MG PO (09:02)
[2024-05-23] MEDS: LOW STRENGTH ASPIRIN 81 MG PO (09:02)
[2024-05-23] MEDS: VIBRAMYCIN 100 MG PO (09:02)
[2024-05-23] MEDS: PLAVIX 75 MG PO (09:08)
--- NOTE | 2024-05-23 10:41 | W.PN.NEURO.1 ---
Today's Communication / Plan
-
.
Subjective/Objective
Subjective Data
Date of Service: May 23, 2024
Mr. Blanton reports no complaints. He is eager to go home.
Brain MRi showed no acute infarcts
Routine EEG-generalized slowing
TTE-interatrial septum is intact without evidence of shunt by agitated saline contrast injection.
PMH: R frontal meningioma, left frontal centrum semiovale stroke(08/2021), HTN, DLP, DM, L RCC, M�ni�re's disease, BASHIR , Vitamin B 12 deficiency, h/o R endophthalmitis(2020), h/o R CRAO, Charcot foot
PSH: partial left nephrectomy, right 3rd toe amputation, R eye enucleation, appendectomy
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
FH: no FH of [employer]IL [employer]IVER demyelinating disease
All:NKDA
ROS:positive for transient dysphasia and sensory symptoms, chronic hearing impairment, intermittent vertigo and imbalance
General: Well developed. In no acute distress.
Cardio: Regular rate and rhythm without murmur. Extremities are without cyanosis or edema.
Neuro:
Mental Status: Alert, oriented to person, place, and date. Poor attention and comprehension. Unable to do serial sevens. Expressive dysphagia, no hemineglect.
Cranial Nerves: OS-reactive, EOMs full on the L Visual levi full to confrontation on prabhjot L. No ptosis. No nystagmus. Face symmetric. Poor hearing AU. The palate elevated well. SCMs and traps 5/5. Tongue midline. No dysarthria.
Motor: Normal bulk and tone. No pronator or arm drift. Strength 5/5 throughout, except for L DF? No clonus.
Sensory: Reduced vibration at the toes
Coordination: No dysmetria or tremor.
Gait: deferred
BL pes cavus
Assessment and Plan:
I. Encephalopathy(vascular, neurodegenerative?), stable
II. R frontal meningioma
III. Chronic multi territorial infarcts
IV. Schmorl's nodes at T8, T9,T12 levels
V. Distal symmetric polyneuropathy
-Continue Telemetry monitoring.
-TTE with bubble studies
-Will consider Brilinta if acute infarcts found
-Continue ASA 81 mg QD, Plavix 75 mg QD
-Lipitor 40 mg QHS.
-OP neuropsychological evaluation
-Medication administration supervision
-DVT prophylaxis.
-Outpatient neurology follow-up in 2�3 weeks
I personally reviewed all radiology and labs along with past medical records pertinent to current medical problems. Total time spent in patient care is 35 minutes.
Thank you for allowing us to participate in the care of this patient. Please do not hesitate to contact us with any questions or concerns.
Objective Data
Vital Signs
Temp Pulse Resp BP Pulse Ox
36.9 C 79 16 129/69 95
05/23/24 07:49 05/23/24 07:49 05/23/24 07:49 05/23/24 07:49 05/23/24 07:49
Lab Results
05/23/24 05:43
05/23/24 05:43
PT 13.1 Sec (11.4-14.6) 05/21/24 18:46
INR 0.99 05/21/24 18:46
APTT 30.0 Sec (23.4-35.0) 05/21/24 18:46
Sodium 140 mmol/L (135-145) 05/23/24 05:43
Potassium 4.0 mmol/L (3.5-5.1) 05/23/24 05:43
BUN 16 mg/dl (9-20) 05/23/24 05:43
Glucose 123 mg/dl (70-99) H 05/23/24 05:43
Calcium 9.4 mg/dl (8.4-10.2) 05/23/24 05:43
LDL Cholesterol, Calc 46 mg/dl 05/22/24 05:58
Patient Allergies
No Known Allergies Allergy (Verified 05/21/24 18:38)
Vital Signs and Labs
-
Vital Signs and Labs:
Vital Signs
Temp Pulse Resp BP Pulse Ox
36.9 C 79 16 129/69 95
05/23/24 07:49 05/23/24 07:49 05/23/24 07:49 05/23/24 07:49 05/23/24 07:49
Lab Results
05/23/24 05:43
05/23/24 05:43
PT 13.1 Sec (11.4-14.6) 05/21/24 18:46
INR 0.99 05/21/24 18:46
APTT 30.0 Sec (23.4-35.0) 05/21/24 18:46
Sodium 140 mmol/L (135-145) 05/23/24 05:43
Potassium 4.0 mmol/L (3.5-5.1) 05/23/24 05:43
BUN 16 mg/dl (9-20) 05/23/24 05:43
Glucose 123 mg/dl (70-99) H 05/23/24 05:43
Calcium 9.4 mg/dl (8.4-10.2) 05/23/24 05:43
LDL Cholesterol, Calc 46 mg/dl 05/22/24 05:58
Medications
-
Medications:
Generic Name Dose Route Start Last Admin
Trade Name Freq PRN Reason Stop Dose Admin
Acetaminophen 650 mg 05/21/24 22:04
Acetaminophen 650 Mg Rectal Suppository RECTAL 06/18/24 22:03
Q4HPRN PRN
GERARDO, mild pain, or temp >100.4F
Acetaminophen 650 mg 05/21/24 22:04
Acetaminophen 325 Mg Tablet PO 06/18/24 22:03
Q4HPRN PRN
GERARDO, mild pain, or temp >100.4F
Amitriptyline HCl 50 mg 05/21/24 23:00 05/22/24 21:27
Amitriptyline 50 Mg Tablet PO 06/18/24 22:59 50 mg
HS MARIO Administration
Aspirin 81 mg 05/22/24 10:30 05/23/24 09:02
Aspirin 81 Mg Chewable Tablet PO 06/19/24 10:29 81 mg
DAILY MARIO Administration
Atorvastatin Calcium 40 mg 05/22/24 08:00 05/23/24 09:02
Atorvastatin (Lipitor) 40 Mg Tablet PO 06/19/24 07:59 40 mg
DAILY MARIO Administration
Clopidogrel Bisulfate 75 mg 05/22/24 08:00 05/23/24 09:08
Clopidogrel 75 Mg Tablet PO 06/19/24 07:59 75 mg
DAILY MARIO Administration
Dextrose 12.5 grams 05/21/24 22:04
Dextrose 50% (0.5 Grams/Ml) 50 Ml Syringe IV 06/18/24 22:03
[id number] PRN
hypoglycemia
Protocol
Doxycycline Hyclate 100 mg 05/22/24 08:00 05/23/24 09:02
Doxycycline 100 Mg Capsule PO 100 mg
BID MARIO Administration
Famotidine 40 mg 05/21/24 22:04
Famotidine 40 Mg Tablet PO 06/18/24 22:03
HSPRN PRN
heartburn
Glucagon 1 mg 05/21/24 22:04
Glucagon 1 Mg Vial IM 06/18/24 22:03
PRN PRN
hypoglycemia
Protocol
Insulin Glargine 20 units/ 0.2 mls @ 0 mls/hr 05/21/24 23:00 05/22/24 21:27
Device SC 06/18/24 22:59 0.2 mls
HS MARIO Administration
As Directed
Insulin Aspart 0 units 05/22/24 07:30 11/01/24 09:13
Insulin Aspart Low Resistance 300 Units/3 Ml Pen.Injctr SC 06/19/24 07:29 Not Given
AC MARIO
Protocol
Pantoprazole Sodium 20 mg 05/22/24 08:00 05/23/24 09:02
Pantoprazole 20 Mg Delayed Release Tablet PO 06/19/24 07:59 20 mg
DAILY MARIO Administration
Sodium Chloride 0 flush 05/21/24 23:00
Sodium Chloride 0.9% (Flush) Syringe IV 06/18/24 22:59
PER PROTOCOL MARIO
Home Medications
-
Home Medications
atorvastatin 40 mg tablet 40 mg PO DAILY High cholesterol 07/19/16
insulin glargine 100 unit/mL (3 mL) subcutaneous pen (Lantus Solostar U-100 Insulin) 26 units SC HS Diabetes 06/23/20
clopidogrel 75 mg tablet 75 mg PO DAILY Blood clot prevention/tx 06/24/20
metformin 500 mg tablet,extended release 24 hr 2,000 mg PO HS Diabetes 10/16/20
cyanocobalamin (vitamin B-12) 500 mcg tablet (Vitamin B-12) 500 mcg PO DAILY Supplement ##0 01/09/23
semaglutide 0.25 mg or 0.5 mg (2 mg/3 mL) subcutaneous pen injector (Ozempic) 0.5 mg SC HURST Diabetes 01/09/23
doxycycline hyclate 100 mg capsule 100 mg PO BID Infection #60 caps 11/12/23
amitriptyline 25 mg tablet 50 mg PO HS mental health/sleep 05/21/24
famotidine 40 mg tablet 40 mg PO HSPRN PRN heartburn 05/21/24
pantoprazole 20 mg tablet,delayed release 20 mg PO DAILY Gastrointestinal Issue 05/21/24
--- NOTE | 2024-05-23 10:55 | W.PN.HOSP.TC ---
Addendum entered and electronically signed by Denzel Fournier MD 05/23/24 13:40:
PAtient with Meriniere disease
Original Note:
Today's Communication/Plan
-
dc
Assessment / Plan
Assessment / Plan
63yo M with PMHx of R prosthetic eye, DM, R 2nd toe amputation, L anckle Charcot, L toes amputaion with PMHx of OM on chronic Doxy, HLD, L renal carcinoma came with 4 hours of transient dysarthria. Patient had similar symptoms before. Curently not
consistent with taking daily ASA due to conflicting physician recommnedations (as per patient).
B/L feet examined - no wounds or redness seen
A/P:
#TIA/CVA
#1.1 cm homogeneously enhancing extra-axial right frontal region mass, probable meningioma
CTA head and neck from august 2023 showed less then 50% b/l carotid stensosis
Echo in Aug 2023 - no PFO, preserved EF
cont telemetry, no clinicaly significant arrhythmia on EKG
Neurology consult
CT head showed no acute intracranial abnormality
MRI brain with and without contrast pending
ASA, Plavix, Statin
LDL WNL
HgbA1c and TSH pending
#DM type 2 with neuropathy
Accuchecks, Insulin SS, cont home insulin regimen, DM diet
#GERD
#Hx of OM
#Insomnia
cont home meds
DVT ppx SCDs
FUll code
I have spent at least 59min reviewing the chart, test results, communication with consultants and direct patient care
Anticipated Discharge: Today
Subjective/Interval History
-
Date of Service: May 23, 2024
Objective Data
-
Labs:
Laboratory Results
05/23/24
05:43
WBC 9.3
Hgb 16.1
Hct 46.4
Plt Count 208
Sodium 140
Potassium 4.0
Chloride 101
Carbon Dioxide 25
BUN 16
Creatinine 1.0
Glucose 123 H
Calcium 9.4
Total Bilirubin 1.0
AST 28
ALT 37
Alkaline Phosphatase 90
Vital Signs:
Vital Signs
Temp Pulse Resp BP Pulse Ox
98.4 F 79 16 129/69 95
05/23/24 07:49 05/23/24 07:49 05/23/24 07:49 05/23/24 07:49 05/23/24 08:00
I&O
05/22/24 05/23/24 05/24/24
06:59 06:59 06:59
Intake Total 480 / 480 1440 / 1440
Balance 480 / 480 1440 / 1440
Review of Systems
-
History Source: Patient
All other systems: Reviewed and negative
Physical Exam
-
General: No Apparent Distress
HEENT: Normocephalic
Cardiac: Regular Rhythm
GI: Soft, Nontender and Nondistended
Neuro: Awake, Alert, Oriented and AO x 3
Psych: Calm and Apparent Dementia
--- NOTE | 2024-05-23 10:55 | W.DCSUMMARY ---
Discharge Summary
Discharge Data
Date of Admission: 05/21/24
Date of Discharge: 05/23/24
-
Pending Results: No
Additional Pending Results:
63yo M with PMHx of R prosthetic eye, DM, R 2nd toe amputation, L anckle Charcot, dementia, as per neurologic assesment, L toes amputaion with PMHx of OM on chronic Doxy, HLD, L renal carcinoma came with 4 hours of transient dysarthria. Patient had
similar symptoms before. Curently not consistent with taking daily ASA due to conflicting physician recommnedations (as per patient). No arrhythmia on tele. No PFO on bubble study. No new stroke on MRI brain, same size meningioma seen, same to 2022
and follow up at least since 2019 without surrounding edema or mass effect. As per neurology - can d/c
B/L feet examined - no wounds or redness seen
Medically stable for discharge. I have spent at least 38min preparing d/c
Patient was managed for:
#TIA/CVA
#Hx of lacunar stroke
#1.1 cm homogeneously enhancing extra-axial right frontal region mass, probable meningioma
#DM type 2 with neuropathy
#Dementia, unspecified
#GERD
#Hx of OM
#Insomnia
Discharge Plan
-
Patient Disposition: Home (Routine Discharge)
Discharge Diagnosis/Procedures: TIA
Diet: Diabetic, Carb Controlled
Activity: As tolerated
Driving Restrictions: As prior to admission
Referrals:
Ang Bailey MD [Active] - in two to three weeks
Quentin Wesley DO [Family Provider] -
Prescriptions:
Continued
atorvastatin 40 MG tablet
40 mg PO DAILY
insulin glargine [Lantus Solostar U-100 Insulin] 300 UNITS/3 ML insulin pen
26 units SC HS
Patient Comments:
26-32
clopidogrel 75 MG tablet
75 mg PO DAILY
metformin 500 MG tablet extended release 24 hr
2,000 mg PO HS
cyanocobalamin (vitamin B-12) [Vitamin B-12] 500 mcg Tablet
500 mcg PO DAILY Qty: 0
Ozempic 0.25 mg or 0.5 mg (2 mg/3 mL) Pen Injector
0.5 mg SC HURST
doxycycline hyclate 100 mg capsule
100 mg PO BID Qty: 60 0RF
famotidine 40 mg tablet
40 mg PO HSPRN PRN (Reason: heartburn)
pantoprazole 20 mg tablet,delayed release (DR/EC)
20 mg PO DAILY
amitriptyline 25 mg tablet
50 mg PO HS
Discharge Orders:
Discharge Patient (As Directed); Ordered 05/23/24
Ordered By: Denzel Fournier
Discharge Date and Time
Print Language: ROMANIAN
[2024-05-23 11:45] VITALS: BP 150/86
[2024-05-23 12:37] LABS: Glucose - Point of Care 283 mg/dl (70-99)
--- NOTE | 2024-05-23 14:17 | CM ---
Patient seen at bedside. [facility] completed and signed form placed on chart. Patient lives with in 3 story home. Patient stated that his PCP is Dr. Quentin Alberto, and pharmacy is [facility]. Patient seen by
therapy and recommendation is for outpatient therapy. CM will continue to follow for discharge planning needs.
Plan; home with outpatient therapy.
== END 2024-05-23 13:56 | disposition home or self-care (01) | DRG 69 ==
LOC: 3 WEST ACU 21:17
PROVIDERS: Emergency Medicine; Nurse Practitioner Family; ADMITTING PHYSICIAN Internal Medicine; ATTENDING PHYSICIAN Internal Medicine; CONSULT PHYSICIAN Psychiatry & Neurology Neurology; EMERGENCY PHYSICIAN Emergency Medicine; FAMILY PHYSICIAN Internal Medicine
DX: G45.9 Transient cerebral ischemic attack, unspecified (principal); F03.918 Unspecified dementia, unspecified severity, with other behavioral disturbance; G93.40 Encephalopathy, unspecified; I16.1 Hypertensive emergency; R47.01 Aphasia; C70.9 Malignant neoplasm of meninges, unspecified; G47.33 Obstructive sleep apnea (adult) (pediatric); Z79.82 Long term (current) use of aspirin; E11.610 Type 2 diabetes mellitus with diabetic neuropathic arthropathy; E11.40 Type 2 diabetes mellitus with diabetic neuropathy, unspecified; K21.9 Gastro-esophageal reflux disease without esophagitis; G47.00 Insomnia, unspecified; H54.61 Unqualified visual loss, right eye, normal vision left eye; Z79.02 Long term (current) use of antithrombotics/antiplatelets
CPT/HCPCS: 70450; 70553; 80053; 80061; 82962; 83036; 84443; 84484; 85025; 85027; 85610; 85730; 87070; 87147; 92523; 93005; 93306; 95816; 97116; 97163; 97167; 99285; A9575

== ENCOUNTER → 2024-07-30 11:54 | Outpatient (REF) | payer MEDICARE, SELFPAY | LOC: RAD 11:54 | PROVIDERS: ATTENDING PHYSICIAN Urology; FAMILY PHYSICIAN Internal Medicine | DX: N20.0 Calculus of kidney (principal); C64.2 Malignant neoplasm of left kidney, except renal pelvis | CPT/HCPCS: 71260; 74170; Q9967 ==

== ENCOUNTER 2024-08-05 06:25 | Day surgery (SDC) | payer MEDICARE, SELFPAY ==
[2024-08-05 12:13] LABS: Glucose - Point of Care 99 mg/dl (70-99)
== END 2024-08-05 13:51 | disposition home or self-care (01) ==
LOC: GI 06:25
PROVIDERS: ATTENDING PHYSICIAN Internal Medicine; FAMILY PHYSICIAN Internal Medicine
DX: Z12.11 Encounter for screening for malignant neoplasm of colon (principal); K57.30 Diverticulosis of large intestine without perforation or abscess without bleeding; K64.9 Unspecified hemorrhoids; D12.2 Benign neoplasm of ascending colon; D12.3 Benign neoplasm of transverse colon; D12.5 Benign neoplasm of sigmoid colon; K63.5 Polyp of colon; Z86.0101 Personal history of adenomatous and serrated colon polyps
CPT/HCPCS: 45385; 45380; 88305; 82962

== ENCOUNTER 2025-04-11 16:52 | Emergency (ER) | payer MEDICARE, SELFPAY ==
[2025-04-11 16:56] VITALS: BP 152/85
[2025-04-11 17:19] LABS: Hematocrit 48.0 % (39.0-52.0); Hemoglobin 16.0 g/dL (13.0-18.0); Mean Corp Hgb Conc. 33.3 g/dL (33.0-37.0); Mean Corpuscular Volume 87.8 fL (80.0-94.0); Nucleated Red Blood Cells % 0 % (-); Platelet Count 196 10^3/uL (130-400); Red Cell Dist. Width 14.0 % (11.5-14.5)
[2025-04-11 17:43] LABS: ALT (SGPT) 22 U/L (0-50); AST (SGOT) 21 U/L (17-59); Albumin 4.6 g/dl (3.5-5.0); Alkaline Phosphatase 87 U/L (38-126); Blood Urea Nitrogen 15 mg/dl (9-20); Calcium 10.2 mg/dl (8.4-10.2); Carbon Dioxide 26 mmol/L (22-30); Chloride 102 mmol/L (98-107); Glucose 135 mg/dl (70-99); Potassium 5.3 mmol/L (3.5-5.1); Sodium 137 mmol/L (135-145); Total Protein 7.3 g/dl (6.3-8.2); eGFR > 60.00
[2025-04-11 18:07] VITALS: BP 159/87
[2025-04-11 18:52] VITALS: BP 159/87
[2025-04-11 19:39] LABS: Urine Character Clear (Clear)
[2025-04-11 20:00] VITALS: BP 129/64
[2025-04-11 21:00] VITALS: BP 141/80
--- NOTE | 2025-04-11 21:58 | ED.GENMED ---
History of Present Illness
General
Chief Complaint: Change in Mental Status
Source: patient
Exam Limitations: none
Time Seen by Provider: 04/11/25 18:25
Nursing documentation reviewed up to this point in time: agreed with
History of Present Illness
History of Present Illness:
64-year-old male presenting to the emergency department today with concerns of vague symptoms today including some vague confusion and fatigue some trouble with gait. At baseline does have significant trouble with gait has a chronic foot injury as
well as M�ni�re's disease. He claims this is not far from his baseline.
Past History
Past History
ED Past Medical History: CVA, GERD, IDDM and Other (Charcot foot, M�ni�re's disease, duodenal ulcer, MRSA, right eye blindness)
ED Past Surgical History: Appendectomy and Orthopedic
Social History
Tobacco: Non-smoker
Alcohol: None
Drug: None
Personal:
Living: with family
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
Family History
Family History: Other (No significant)
Review of Systems
Review of Systems
Allergies reviewed?: Yes
All Other Systems: ROS reviewed and negative except as documented in HPI and ROS
Phy Exam
Physical Exam
Physical Exam:
GENERAL: Alert , in no apparent distress
EYE: pupils equal and reactive
NECK: Supple, no significant adenopathy.
ENT: o/p clr, mmm.
CARDIAC: Regular rate and rhythm .
LUNGS: Clear breath sounds bilaterally, no acute respiratory distress, no wheezes/rales/rhonchi
ABDOMEN: Soft, without focal tenderness, no r/g, no cvat
NEUROLOGICAL: Alert and oriented, no focal neuro deficits
SKIN: Warm and dry, skin intact.
MUSCULOSKELETAL: No edema, well perfused.
PSYCH: Normal and appropriate interaction.
Course
Orders/Labs/Results
Orders:
Orders
04/11/25 17:01
Electrocardiogram (*1) Urgent
Reason for Study: Other
Other Reason for Exam: Possible Sepsis
IV Insert/Care/Rem.- Treatment PRN
04/11/25 17:02
CT Head W/o Iv Contrast Urgent
Comment:
Reason For Exam: unsteady gait
EKG- Treatment ONCE
04/11/25 17:12
Complete Blood Count/With Diff Urgent
Comprehensive Metabolic Panel Urgent
04/11/25 19:32
Urinalysis Reflex To Culture Urgent
Date Specimen was Collected: 04/11/25
Time Specimen was Collected: 17:02
Abnormal Lab Results
04/11/25 04/11/25
17:12 19:32
MPV 10.6 H fL
(7.4-10.4)
Absolute Neuts (auto) 7.3 H 10^3/uL
(1.4-6.5)
Absolute Monos (auto) 0.7 H 10^3/uL
(0.1-0.6)
Lymphocytes % 15.9 L %
(20.5-51.1)
Potassium 5.3 H mmol/L
(3.5-5.1)
Glucose 135 H mg/dl
(70-99)
Urine Glucose 4+ A
(Negative)
04/11/25 17:12
04/11/25 17:12
Vital Signs
Initial and Last Documented VS:
Initial Vital Signs
Temp Pulse Resp BP Pulse Ox
97.6 F 91 16 152/85 100
04/11/25 16:56 04/11/25 16:56 04/11/25 16:56 04/11/25 16:56 04/11/25 16:56
Last Documented Vital Signs
Temp Pulse Resp BP Pulse Ox
97.6 F 66 15 141/80 98
04/11/25 16:56 04/11/25 21:30 04/11/25 21:30 04/11/25 21:00 04/11/25 21:30
MDM/Problems Addressed
MDM/Problems Addressed:
64-year-old male presenting to the emergency department today with concerns of vague symptoms including confusion fatigue and some difficulty with normal tasks. Here he is in no distress normal neurologic evaluation vital signs are normal and labs
unremarkable. Very slight elevation of potassium level which was explained to the patient who understood. CT scan negative. Patient asymptomatic throughout the stay in the ER. Concerning the stable for outpatient management return precautions
given.
*Pulse Oximetry
SaO2: 98
Oxygen Mode of Delivery: Room air
Patient hypoxic: no (98)
*Critical Care Note
Total Time (30-74mins, 75-104mins- exclusive of procedures): Not Applicable
ED Attending Note
-
Portions of this chart may have been created with voice recognition software.� Occasional wrong word or��sound alike� substitutions may have occurred due to the inherent limitations of voice recognition software.
Discharge Plan
Departure
Patient Disposition: Home (Routine Discharge)
Date of Disposition: 04/11/25
Time of Disposition: 22:00
Patient with high blood pressure during this ER visit?: No
Condition: Good
Covid-19: Not Applicable
Discharge Problem:
Fatigue
Prescriptions:
No Action
atorvastatin 40 MG tablet
40 mg PO DAILY
insulin glargine [Lantus Solostar U-100 Insulin] 300 UNITS/3 ML insulin pen
26 units SC HS
Patient Comments:
26-32
clopidogrel 75 MG tablet
75 mg PO DAILY
metformin 500 MG tablet extended release 24 hr
2,000 mg PO HS
cyanocobalamin (vitamin B-12) [Vitamin B-12] 500 mcg Tablet
500 mcg PO DAILY Qty: 0
Ozempic 0.25 mg or 0.5 mg (2 mg/3 mL) Pen Injector
0.5 mg SC HURST
doxycycline hyclate 100 mg capsule
100 mg PO BID Qty: 60 0RF
famotidine 40 mg tablet
40 mg PO HSPRN PRN (Reason: heartburn)
pantoprazole 20 mg tablet,delayed release (DR/EC)
20 mg PO DAILY
amitriptyline 25 mg tablet
50 mg PO HS
aspirin 81 mg Tablet,Chewable
81 mg PO DAILY Qty: 30 0RF
Referrals:
Quentin Wesley DO [Family Provider, Internal Medicine]
Activity Restrictions/Additional Instructions:
You came to the emergency department today with concerns of multiple symptoms. Here had a reassuring assessment. Please follow closely with your primary care doctor and return for any worsening, new or concerning symptoms.
Interventions
Interventions:
*Risk Screen - Suicide Last Done: 04/11/25 16:56
*General Assessment Last Done: 04/11/25 18:53
*Neglect/Abuse Screening Last Done: 04/11/25 16:56
*ED- Fall Risk Assessment Last Done: 04/11/25 18:53
*ED COVID-19 Vaccine History Last Done: 04/11/25 18:53
ED- Neurological Assessment Last Done: 04/11/25 19:35
ED Swallowing Screen Last Done: 04/11/25 18:52
Discharge Date and Time
Print Language: PERUVIAN
[2025-04-11 22:00] VITALS: BP 156/82
== END 2025-04-11 22:27 | disposition home or self-care (01) ==
LOC: EMR 16:52
PROVIDERS: EMERGENCY PHYSICIAN Emergency Medicine; FAMILY PHYSICIAN Internal Medicine
DX: R41.0 Disorientation, unspecified (principal); R53.83 Other fatigue; E11.610 Type 2 diabetes mellitus with diabetic neuropathic arthropathy; Z86.73 Personal history of transient ischemic attack (TIA), and cerebral infarction without residual deficits; Z90.49 Acquired absence of other specified parts of digestive tract; Z87.19 Personal history of other diseases of the digestive system
CPT/HCPCS: 99284; 70450; 80053; 81003; 85025; 93005

== ENCOUNTER 2025-05-07 07:48 | Inpatient (IN) | payer MEDICARE, SELFPAY ==
[2025-05-04] VITALS (9 sets, daily range): BP systolic 134–152; BP diastolic 86–97; BMI 31.1; BMI 28.9
[2025-05-04 17:47] LABS: Glucose - Point of Care 120 mg/dl (70-99)
--- NOTE | 2025-05-04 17:57 | ED.CVA ---
History of Present Illness
General
Chief Complaint: CVA/TIA Symptoms
Time Seen by Provider: 05/04/25 17:45
Onset of Stroke Symptoms
Onset of symptoms known: Yes
Date of onset of symptoms: 05/04/25
Time of onset of symptoms: 16:30
History of Present Illness
History of Present Illness:
Patient presents emergency department with difficulty speaking. Symptoms started sometime around 430-445 when he was last seen normal. He went to take a shower. Afterwards he was noted to have difficulty speaking. He is not able to get the words
out that he is trying to say and is frustrated by this. He denies any weakness numbness or tingling. Denies any visual changes. His is with him and helps provide history. He has a history of CVA/TIA without any residual deficits. He is on
aspirin and Plavix. No history of intracranial hemorrhage. No recent GI bleeding.
Past History
Past History
ED Past Medical History: CVA, GERD, IDDM and Other (Charcot foot, M�ni�re's disease, duodenal ulcer, MRSA, right eye blindness)
ED Past Surgical History: Appendectomy and Orthopedic
Social History
Tobacco: Non-smoker
Alcohol: None
Drug: None
Personal:
Living: with family
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
Family History
Family History: Other (No significant)
Phy Exam
Physical Exam
Physical Exam:
GENERAL APPEARANCE: NAD, well developed/ well nourished
EYES lids/conjunctiva normal
EARS/NOSE/THROAT prosthetic right eye
HEAD/NECK normocephalic atraumatic, neck is supple.
RESPIRATORY respiratory effort normal, speaks in full sentences, no accessory muscle use. Lungs clear to auscultation without rhonchi, wheezes, rales
CARDIAC Regular rate and rhythm, no edema.
ABDOMINAL Soft, ND/NT.
MUSCLES/EXTREMITIES No abnormal range of motion, no swelling.
SKIN Warm, pink and dry. No rashes
NEUROLOGICAL patient is awake and alert and oriented x 3. He is having difficulty producing speech with expressive aphasia. His naming and repetition are intact. He has difficulty following directions and commands. Other than his prosthetic
right eye, cranial nerves are otherwise intact. 5 out of 5 strength in all extremities. Sensation intact to light touch throughout. No dysmetria or ataxia
Course
Orders/Labs/Results
Orders:
Orders
05/04/25 17:29
CT HEAD STROKE ALERT W/o Cont Urgent
Comment:
Reason For Exam: slurred speech and aphasia
05/04/25 17:43
Electrocardiogram (*1) Urgent
Reason for Study: Other
Other Reason for Exam: Possible Stroke
Bedside Glucose- Treatment ONCE
Cardiac Monitoring- Treatment ONCE
EKG- Treatment ONCE
IV Insert/Care/Rem.- Treatment PRN
Vital Signs As Directed
Frequency: Other
Weight As Directed
Frequency: Once
Comment: ZERO STRETCHER SCALE FOR ACCURATE WEIGHT
O2 Therapy [RESP] Urgent
Titrate/Wean O2 to maintain O2 sat greater than (%): 93
Special Instructions: MAINTAIN CONTINUOUS O2 SATS > OR = 93%
05/04/25 17:53
Complete Blood Count/With Diff Urgent
Comprehensive Metabolic Panel Urgent
PTT Urgent
Prothrombin Time Urgent
Troponin I Urgent
Abnormal Lab Results
05/04/25 05/04/25
17:40 17:53
MPV 10.7 H fL
(7.4-10.4)
Absolute Monos (auto) 0.8 H 10^3/uL
(0.1-0.6)
Monocytes % 10.8 H %
(1.7-9.3)
Glucose 133 H mg/dl
(70-99)
POC Glucose 120 H mg/dl
(70-99)
05/04/25 17:53
05/04/25 17:53
Vital Signs
Initial and Last Documented VS:
Initial Vital Signs
Temp Pulse Resp BP Pulse Ox
97.8 F 105 16 152/97 99
05/04/25 17:25 05/04/25 17:25 05/04/25 17:25 05/04/25 17:25 05/04/25 17:25
Last Documented Vital Signs
Temp Pulse Resp BP Pulse Ox
97.8 F 92 15 143/92 97
05/04/25 17:25 05/04/25 19:45 05/04/25 19:45 05/04/25 19:00 05/04/25 19:45
*Pulse Oximetry
SaO2: 98
Oxygen Mode of Delivery: Room air
Patient hypoxic: no
*Critical Care Note
Total Time (30-74mins, 75-104mins- exclusive of procedures): Not Applicable
ED Attending Note
ED Attending Note
ED Attending Note:
hx of TIA/CVA in the past with no residual deficits, IDDM, prior removal of R eye from infection, GERD, BASHIR
at 4:30pm had a sudden onset of expressive aphasia, on arrival was not able to complete sentences, word finding difficulty, difficulty following commands
stroke alert was called, [place] tele neuro saw patient
at that time his symptoms were rapidly resolving and no TNK was recommended despite patient being in the window
CT head was negative for acute process
will need admission for MRI and stroke/tia workup
-
Portions of this chart may have been created with voice recognition software.� Occasional wrong word or��sound alike� substitutions may have occurred due to the inherent limitations of voice recognition software.
Discharge Plan
Departure
Patient Disposition: Admit
Date of Disposition: 05/04/25
Time of Disposition: 20:51
Presentation/result/management discussed w/ accepting MD/DO: Hospitalist
Discharge Problem:
Transient ischemic attack
Prescriptions:
No Action
atorvastatin 40 MG tablet
40 mg PO DAILY
insulin glargine [Lantus Solostar U-100 Insulin] 300 UNITS/3 ML insulin pen
20 units SC HS
Patient Comments:
26-32
clopidogrel 75 MG tablet
75 mg PO DAILY
metformin 500 MG tablet extended release 24 hr
2,000 mg PO HS
cyanocobalamin (vitamin B-12) [Vitamin B-12] 500 mcg Tablet
500 mcg PO DAILY Qty: 0
Ozempic 0.25 mg or 0.5 mg (2 mg/3 mL) Pen Injector
1 mg SC HURST
doxycycline hyclate 100 mg capsule
100 mg PO BID Qty: 60 0RF
famotidine 40 mg tablet
40 mg PO HSPRN PRN (Reason: heartburn)
pantoprazole 20 mg tablet,delayed release (DR/EC)
20 mg PO DAILY
amitriptyline 25 mg tablet
50 mg PO HS
aspirin 81 mg Tablet,Chewable
81 mg PO DAILY Qty: 30 0RF
dapagliflozin propanediol [Farxiga] 5 mg Tablet
5 mg PO DAILY
Referrals:
Quentin Wesley DO [Family Provider, Internal Medicine]
Interventions
Interventions:
*Risk Screen - Suicide Last Done: 05/04/25 17:37
*General Assessment Last Done: 05/04/25 17:37
*Neglect/Abuse Screening Last Done: 05/04/25 17:37
*ED- Fall Risk Assessment Last Done: 05/04/25 17:37
*ED COVID-19 Vaccine History Last Done: 05/04/25 17:37
*ED Influenza Vaccine History Last Done: 05/04/25 17:37
ED- Pulmonary Assessment Last Done: 05/04/25 17:37
ED- Neurological Assessment Last Done: 05/04/25 17:37
ED- Cardiac Assessment Last Done: 05/04/25 17:37
Discharge Date and Time
Print Language: MACEDONIAN
[2025-05-04 18:03] LABS: Hematocrit 47.4 % (39.0-52.0); Hemoglobin 16.1 g/dL (13.0-18.0); Mean Corp Hgb Conc. 34.0 g/dL (33.0-37.0); Mean Corpuscular Volume 86.5 fL (80.0-94.0); Nucleated Red Blood Cells % 0 % (-); Platelet Count 193 10^3/uL (130-400); Red Cell Dist. Width 13.7 % (11.5-14.5)
[2025-05-04 18:14] LABS: ALT (SGPT) 24 U/L (0-50); AST (SGOT) 23 U/L (17-59); Albumin 4.8 g/dl (3.5-5.0); Alkaline Phosphatase 79 U/L (38-126); Blood Urea Nitrogen 19 mg/dl (9-20); Calcium 9.8 mg/dl (8.4-10.2); Carbon Dioxide 26 mmol/L (22-30); Chloride 100 mmol/L (98-107); Estimated Creatinine Clearance 103 ml/min; Glucose 133 mg/dl (70-99); Potassium 4.0 mmol/L (3.5-5.1); Sodium 137 mmol/L (135-145); Total Protein 7.7 g/dl (6.3-8.2); eGFR > 60.00
[2025-05-04 18:26] LABS: Troponin I < 0.012 ng/ml
[2025-05-04 18:51] LABS: INR 0.96; PT 13.0 Sec (11.4-14.6)
[2025-05-04 18:52] LABS: APTT 29.7 Sec (23.4-35.0)
--- NOTE | 2025-05-04 21:20 | W.PN.UPDATE ---
Update Note
Progress Note Update
This note serves as an addendum to the H&P by staff psychologist PAMELA�
Sandrine DIETERICK
HPI�
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
toe amputation seen at ER:
- pw sudden onset of expressive aphasia at 430p - reports word salads
- on arrival was not able to complete sentences, word finding difficulty, difficulty following commands
- stroke alert was called, [place] tele neuro saw patient
- at that time his symptoms were rapidly resolving and no TNK was recommended despite patient being in the window
NEG HCT
PHX; see above
Relevant VS
Temp Pulse Resp BP Pulse Ox
97.8 F 87 18 149/96 98
05/04/25 17:25 05/04/25 21:00 05/04/25 21:00 05/04/25 21:00 05/04/25 21:00
PE
Gen: NAD
HEENT: Prosthetic R Eyes.Symmetric face. No speech. No word finding difficulty
Neck: supple, short
Lungs: CTA
Cor: RRR S1 S2
MOTION PICTURES CARTOONIST: grossly normal
MS: no edema
Relevant Data
05/04/25
17:53
WBC 7.8
Hgb 16.1
Plt Count 193
INR 0.96
eGFR > 60.00
Glucose 133 H
Troponin I < 0.012
05/22/24 TTE
Technically difficult study
No gross regional wall motion abnormalities are seen.
LV ejection fraction is 55- 60% by visual assessment.
Mild concentric left ventricular hypertrophy. Normal diastolic function.
Normal right ventricular size and function.
No significant valvular pathology
Interatrial septum is intact without evidence of shunt by agitated saline contrast injection.
Last hospitalist admission: 05/21/24 - 05/23/24
DC Dx:
TIA/CVA
Hx of lacunar stroke
Homogeneously enhancing extra-axial right frontal region mass, probable meningioma
T2DM w neuropathy
Dementia, unspecified
HX OM
ASSESSMENT & PLAN
Pending Rx reconciliation
Stroke alert for sudden onset of expressive aphasia
- on arrival was not able to complete sentences, word finding difficulty, difficulty following commands
- [place] tele neuro saw patient : in view of rapidly resolving symptoms, TNK was NOT recommended despite patient being in the window
- Unremarkable labs
- NEG HCT
- Brain MRI
- on [employer] DAPL and reports compliance - need verify ASA and Plavix
- TLM
- Neurology consult
HX BASHIR on HS CPAP
- he did not bring hos own today
HX R frontal meningioma
HX Chronic multi territorial infarcts
HX Schmorl's nodes at T8, T9,T12 levels
Distal symmetric polyneuropathy HX per Neurologist
DVT Px: SCD
Code: Full code
OBS TLM
--- NOTE | 2025-05-04 21:32 | HPS.HSE ---
Family Physician
-
Family Physician: Quentin Wesley
Chief Complaint
-
Speech Abnormality
History of Present Illness
Patient is a 64 y/o male past medical history of diabetes mellitus, hypertension, hyperlipidemia, obstructive sleep apnea and prior TIA/CVA who presents with speech abnormality. Patient reports this afternoon he developed acute onset of expressive
aphasia. He describes words just being all jumbled up, and that his was asking him questions and he was not able to answer. He reports symptoms continue to improve but he notes speech still doesnt seem quite back to baseline. He denies focal
numbness, tingling or weakness.
Medical History
Past Medical History
Past Medical History: Reports Other
Additional Past Medical History:
Multiple CVAs
Diabetes Mellitus, Type II
Essential Hypertension
Hyperlipidemia
Obstructive Sleep Apnea
Chronic Osteomyelitis / Left Charcot Foot
M�ni�re's Disease
Past Surgical History: Reports Other
Additional Past Surgical History:
Right Eye Enucleation
Partial Left Nephrectomy
Multiple Toe Amputations
Social History
Tobacco: Non-smoker
Alcohol: None
Family History
Family History: Not pertinent
Allergies / Home Medications
Allergies reflects when Allergies were last updated in [employer]
Home Medications with original date entered in [employer]
Allergy/Medication List:
Allergies
Allergy/AdvReac Type Severity Reaction Status Date / Time
No Known Allergies Allergy Verified 05/04/25 17:29
Home Medications
atorvastatin 40 mg tablet 40 mg PO DAILY High cholesterol 07/19/16
insulin glargine 100 unit/mL (3 mL) subcutaneous pen (Lantus Solostar U-100 Insulin) 20 units SC HS Diabetes 06/23/20
clopidogrel 75 mg tablet 75 mg PO DAILY Blood clot prevention/tx 06/24/20
metformin 500 mg tablet,extended release 24 hr 2,000 mg PO HS Diabetes 10/16/20
cyanocobalamin (vitamin B-12) 500 mcg tablet (Vitamin B-12) 500 mcg PO DAILY Supplement ##0 01/09/23
semaglutide 0.25 mg or 0.5 mg (2 mg/3 mL) subcutaneous pen injector (Ozempic) 1 mg SC HURST Diabetes 01/09/23
doxycycline hyclate 100 mg capsule 100 mg PO BID Infection #60 caps 11/12/23
amitriptyline 25 mg tablet 50 mg PO HS mental health/sleep 05/21/24
famotidine 40 mg tablet 40 mg PO HSPRN PRN heartburn 05/21/24
pantoprazole 20 mg tablet,delayed release 20 mg PO DAILY Gastrointestinal Issue 05/21/24
aspirin 81 mg chewable tablet 81 mg PO DAILY #30 tabs 05/23/24
dapagliflozin propanediol 5 mg tablet (Farxiga) 5 mg PO DAILY 05/04/25
Review of Systems
-
A 12 point ROS was completed and negative except as noted: Yes
Constitutional: Denies Fever or Chills
Respiratory: Denies Cough or Trouble Breathing
Cardiac: Denies Chest Pain or Palpitations
Physical Exam
Vital Signs
Vital Signs
Temp Pulse Resp BP Pulse Ox
97.8 F 87 18 149/96 98
05/04/25 17:25 05/04/25 21:00 05/04/25 21:00 05/04/25 21:00 05/04/25 21:00
Physical Exam
General: Comfortable, Conversant and Obese
HEENT: Moist mucous membranes and Other (Bilateral hearing aid in place; Right prosthetic eye)
Respiratory: Clear and Non Labored Respirations
Cardiac: S1/S2 and Regular Rhythm
GI: Soft and Non Tender
Musculoskeletal: No Clubbing and No Cyanosis
Skin: Warm and Dry
Neuro: Awake, Alert, Oriented and No Motor Deficits; No Facial Droop
Psych: Calm
Laboratory Results
-
05/04/25 17:53
05/04/25 17:53
Laboratory Results
PT 13.0 Sec (11.4-14.6) 05/04/25 17:53
INR 0.96 05/04/25 17:53
APTT 29.7 Sec (23.4-35.0) 05/04/25 17:53
Total Bilirubin 0.7 mg/dl (0.2-1.3) 05/04/25 17:53
AST 23 U/L (17-59) 05/04/25 17:53
ALT 24 U/L (0-50) 05/04/25 17:53
Alkaline Phosphatase 79 U/L (38-126) 05/04/25 17:53
Troponin I < 0.012 ng/ml 05/04/25 17:53
Data Reviewed
-
CT Scan: Report Reviewed by me
Lab Data: Labs Reviewed by me
Old Records: Reviewed
Impression/Plan
-
Expressive Aphasia, high clinical concern for acute stroke given prior history
-Consult Neurology
-Check Brain MRI with Head/Neck MRA
-Continue aspirin and Plavix - Check Verify Now Tests
-Patient previously had bubble study and has Linq monitor
Diabetes Mellitus, Type II
-Hold metformin
-Continue Farxiga
-Continue Lantus
-Patient also maintained on Ozempic as outpatient
-Monitor sugars and continue coverage insulin
Hyperlipidemia
-Continue atorvastatin
Chronic Osteomyelitis of Left Foot
-Continue doxycycline
DVT proph: SCDS
Code Status: Full Code
[2025-05-05] VITALS (9 sets, daily range): BP systolic 118–157; BP diastolic 65–97; PULSE 100
--- NOTE | 2025-05-05 | PTCARENOTE ---
Received patient from ED via stretcher. Patient ambulated from stretcher to bed x1 assist. AAOx3, no current complaints of pain. Oriented patient to room and placed call roe within reach.
[2025-05-05 00:13] LABS: Glucose - Point of Care 122 mg/dl (70-99)
[2025-05-05] MEDS: ELAVIL 50 MG PO ×2 (01:03→22:04)
[2025-05-05] MEDS: LANTUS 0.2 UNITS SC ×2 (01:04→22:04)
[2025-05-05 06:55] LABS: Hematocrit 45.6 % (39.0-52.0); Hemoglobin 15.7 g/dL (13.0-18.0); Mean Corp Hgb Conc. 34.4 g/dL (33.0-37.0); Mean Corpuscular Volume 87.4 fL (80.0-94.0); Platelet Count 182 10^3/uL (130-400); Red Cell Dist. Width 13.6 % (11.5-14.5)
[2025-05-05 07:12] LABS: Glucose - Point of Care 96 mg/dl (70-99)
[2025-05-05 07:14] LABS: Blood Urea Nitrogen 15 mg/dl (9-20); Calcium 9.6 mg/dl (8.4-10.2); Carbon Dioxide 28 mmol/L (22-30); Chloride 102 mmol/L (98-107); Estimated Creatinine Clearance 105 ml/min; Glucose 102 mg/dl (70-99); HDL Cholesterol 39 mg/dl; LDL Cholesterol, Calculated 46 mg/dl; Magnesium 1.5 mg/dl (1.6-2.3); Potassium 3.9 mmol/L (3.5-5.1); Sodium 137 mmol/L (135-145); Very Low Density Lipoprotein 24 mg/dl (0-30); eGFR > 60.00
[2025-05-05 08:24] LABS: VerifyNow Aspirin 467 ARU; VerifyNow PRU 159 PRU (180-376)
[2025-05-05] MEDS: FARXIGA 5 MG PO (08:51)
[2025-05-05] MEDS: VIBRAMYCIN 100 MG PO ×2 (08:51→22:04)
[2025-05-05] MEDS: PROTONIX 20 MG PO (08:51)
[2025-05-05] MEDS: LIPITOR 40 MG PO (08:51)
[2025-05-05] MEDS: PLAVIX 75 MG PO (08:51)
[2025-05-05] MEDS: LOW STRENGTH ASPIRIN 81 MG PO (08:51)
[2025-05-05 08:59] LABS: Glycohemoglobin (HgbA1c) 5.5 % (4.0-5.6)
--- NOTE | 2025-05-05 10:25 | PTOTSP ---
HSPT TUTOR Evaluation
Quick Aphasia Battery Form 1 overall score =8.58. Patient's overall score indicates a mild mixed expressive/receptive aphasia. However, cannot r/o impact of difficulty hearing even with hearing aids in place at this time. Informal signs of
difficulty with memory noted. Further cognitive linguistic evaluation warranted as able/appropriate. Patient with history of known cognitive impairments (i.e., on SLUMS in 04/2024).
[2025-05-05 11:58] LABS: Glucose - Point of Care 137 mg/dl (70-99)
--- NOTE | 2025-05-05 13:54 | W.PN.HOSP.TC ---
Today's Communication/Plan
-
MRI of the brain
Assessment / Plan
Assessment / Plan
Expressive Aphasia, high clinical concern for acute stroke given prior history
- Improved speech impairment. Do not recognize any expressive aphasia at bedside today. No motor weakness. CT of the head and CT angiogram did not show any evidence of stroke, bleeding or large vessel occlusion on admission.
-Check Brain MRI with Head/Neck MRA
-Continue aspirin and Plavix
-Patient previously had bubble study and has Linq monitor
- PT/OT/speech eval
Diabetes Mellitus, Type II
-Hold metformin
-Continue Farxiga
-Continue Lantus
-Patient also maintained on Ozempic as outpatient
-Monitor sugars and continue coverage insulin
Hyperlipidemia
-Continue atorvastatin
Chronic Osteomyelitis of Left Foot
-Continue doxycycline
DVT proph: SCDS
Code Status: Full Code
Anticipated Discharge: 24 - 48 hours
Subjective/Interval History
-
Date of Service: May 05, 2025
Feels improved today. Speech better. Not dizzy. Denies any new symptoms.
Objective Data
-
Labs:
Laboratory Results
05/05/25
06:41
WBC 6.8
Hgb 15.7
Hct 45.6
Plt Count 182
Sodium 137
Potassium 3.9
Chloride 102
Carbon Dioxide 28
BUN 15
Creatinine 0.8
Glucose 102 H
Calcium 9.6
Vital Signs:
Vital Signs
Temp Pulse Resp BP Pulse Ox
97.5 F 93 16 146/74 95
05/05/25 11:05 05/05/25 11:05 05/05/25 11:05 05/05/25 11:05 05/05/25 11:05
I&O
05/04/25 05/05/25 05/06/25
06:59 06:59 06:59
Intake Total 0 / 0
Output Total 250 / 250
Balance -250 / -250
Physical Exam
-
General: No Apparent Distress
Respiratory: Clear to Auscultation and Non Labored Respirations; Negative Accessory Resp Muscle Use
Cardiac: Regular Rhythm and S1/S2; Negative Tachycardic
GI: Soft
Neuro: AO x 3 and No Motor Deficits; Negative Slurred Speech or Facial Droop
Psych: Calm; Negative Confused
Data Reviewed
-
CT Scan: Report Reviewed by me (CT head and CTA head and neck)
Labs: Labs Reviewed by me
--- NOTE | 2025-05-05 15:50 | CM ---
Alert awake oriented patient who lives with his Whit in a 3 story home with 3 step to enter and 6 steps to bed and bathroom. He is independent in driving and in all activities of daily living.He is [place] aphasic. He uses walker as needed.Norris
letter give explained Pt did not sign .
No VN hx / No SNF history
Pharmacy [facility]
PCP DR Nicole
PLAN Home Declined VN
[2025-05-05 16:40] LABS: Glucose - Point of Care 124 mg/dl (70-99)
--- NOTE | 2025-05-05 18:08 | CON.NEURO4 ---
Consultation - Neurology 4
-
CONSULTING PHYSICIAN: Jamaal Waterman MD
REFERRING PHYSICIAN: Dionisio Kraus MD
DICTATED BY: Jamaal Waterman MD
DATE/TIME OF REQUEST: 05/05/2025
DATE/TIME OF CONSULTATION: 05/05/2025
Reason for Consultation: Speech abnormality
Assessment and Plan:
The patient is a 64 years old male with a past medical history of diabetes mellitus, hypertension, hyperlipidemia, obstructive sleep apnea and prior TIA/CVA who presents with speech abnormality. Patient reports that he developed acute onset of
expressive aphasia. He describes words just being all jumbled up, and that his was asking him questions and he was not able to answer. He reports that his speech has improved and he thinks that his speech appears to be back to his baseline.
The CT of the head did not show an acute intracranial abnormality.
The plan is to get CTA of the head and neck and MRI of the brain without contrast.
Aspirin 81 mg daily and Plavix 75 mg daily.
Atorvastatin 40 mg daily.
Echocardiogram.
I had a detailed discussion with the patient regarding the assessment and the management plan and the patient verbalized understanding of our discussion.
History of Present Illness:
The patient is a 64 years old male with a past medical history of diabetes mellitus, hypertension, hyperlipidemia, obstructive sleep apnea and prior TIA/CVA who presents with speech abnormality. Patient reports that he developed acute onset of
expressive aphasia. He describes words just being all jumbled up, and that his was asking him questions and he was not able to answer. He reports that his speech has improved and he he thinks that his speech appears to be back to his baseline.
The patient denies any focal weakness.
Past Medical History: Diabetes mellitus, hypertension, hyperlipidemia, obstructive sleep apnea and prior TIA/CVA who presents with speech abnormality.
Review of Systems:
The 10 point review of systems was negative aside from as given in the above history of present illness.
Neurologic Examination:
The patient is alert and oriented x 3.
Speech is clear.
The cranial nerves II to XII are grossly intact except that the patient has an artificial right eye.
The strength is grossly 5/5 bilaterally in the upper and lower extremities.
The sensations are intact bilaterally.
On cerebellar examination the patient does not appear to have limb ataxia.
Medications
-
Active Medications
Generic Name Dose Route Start Last Admin
Trade Name Freq PRN Reason Stop Dose Admin
Acetaminophen 650 mg 05/04/25 23:42
Acetaminophen 650 Mg Rectal Suppository RECTAL 06/01/25 23:41
Q4HPRN PRN
GERARDO, mild pain, or temp >100.4F
Acetaminophen 650 mg 05/04/25 23:42
Acetaminophen 325 Mg Tablet PO 06/01/25 23:41
Q4HPRN PRN
GERARDO, mild pain, or temp >100.4F
Amitriptyline HCl 50 mg 05/04/25 23:55 05/05/25 01:03
Amitriptyline 50 Mg Tablet PO 06/01/25 23:54 50 mg
HS MARIO Administration
Aspirin 81 mg 05/05/25 08:00 05/05/25 08:51
Aspirin 81 Mg Chewable Tablet PO 06/02/25 07:59 81 mg
DAILY MARIO Administration
Atorvastatin Calcium 40 mg 05/05/25 08:00 05/05/25 08:51
Atorvastatin (Lipitor) 40 Mg Tablet PO 06/02/25 07:59 40 mg
DAILY MARIO Administration
Clopidogrel Bisulfate 75 mg 05/05/25 08:00 05/05/25 08:51
Clopidogrel 75 Mg Tablet PO 06/02/25 07:59 75 mg
DAILY MARIO Administration
Dapagliflozin 5 mg 05/05/25 08:00 05/05/25 08:51
Dapagliflozin (Farxiga) 5 Mg Tablet PO 06/02/25 07:59 5 mg
DAILY MARIO Administration
Dextrose 12.5 grams 05/04/25 23:42
Dextrose 50% (0.5 Grams/Ml) 50 Ml Syringe IV 06/01/25 23:41
[id number] PRN
hypoglycemia
Protocol
Doxycycline Hyclate 100 mg 05/05/25 08:00 05/05/25 08:51
Doxycycline 100 Mg Capsule PO 100 mg
BID MARIO Administration
Glucagon 1 mg 05/04/25 23:42
Glucagon 1 Mg Vial IM 06/01/25 23:41
PRN PRN
hypoglycemia
Protocol
Insulin Glargine 20 units/ 0.2 mls @ 0 mls/hr 05/04/25 23:55 05/05/25 01:04
Device SC 06/01/25 23:54 0.2 mls
HS MARIO Administration
As Directed
Insulin Aspart 0 units 05/05/25 07:30 05/05/25 16:43
Insulin Aspart Moderate Resistance 300 Units/3 Ml Pen.Injctr SC 06/02/25 07:29 Not Given
AC MARIO
Protocol
Pantoprazole Sodium 20 mg 05/05/25 08:00 05/05/25 08:51
Pantoprazole 20 Mg Delayed Release Tablet PO 06/02/25 07:59 20 mg
DAILY MARIO Administration
Home Medications
�Medication �Instructions �Recorded
atorvastatin 40 mg tablet 40 mg PO DAILY High cholesterol 07/19/16
insulin glargine 100 unit/mL (3 20 units SC HS Diabetes 06/23/20
mL) subcutaneous pen (Lantus
Solostar U-100 Insulin)
clopidogrel 75 mg tablet 75 mg PO DAILY Blood clot 06/24/20
prevention/tx
metformin 500 mg tablet,extended 2,000 mg PO HS Diabetes 10/16/20
release 24 hr
cyanocobalamin (vitamin B-12) 500 500 mcg PO DAILY Supplement ##0 01/09/23
mcg tablet (Vitamin B-12)
semaglutide 0.25 mg or 0.5 mg (2 1 mg SC HURST Diabetes 01/09/23
mg/3 mL) subcutaneous pen injector
(Ozempic)
doxycycline hyclate 100 mg capsule 100 mg PO BID Infection #60 caps 11/12/23
amitriptyline 25 mg tablet 50 mg PO HS mental health/sleep 05/21/24
famotidine 40 mg tablet 40 mg PO HSPRN PRN heartburn 05/21/24
pantoprazole 20 mg tablet,delayed 20 mg PO DAILY Gastrointestinal 05/21/24
release Issue
aspirin 81 mg chewable tablet 81 mg PO DAILY #30 tabs 05/23/24
dapagliflozin propanediol 5 mg 5 mg PO DAILY Diabetes 05/04/25
tablet (Farxiga)
Vital Signs and Labs
-
Vital Signs and Labs:
Vital Signs
Temp Pulse Resp BP Pulse Ox
36.4 C 83 18 144/78 98
05/05/25 15:28 05/05/25 15:28 05/05/25 15:28 05/05/25 15:28 05/05/25 15:28
Lab Results
05/05/25 06:41
05/05/25 06:41
PT 13.0 Sec (11.4-14.6) 05/04/25 17:53
INR 0.96 05/04/25 17:53
APTT 29.7 Sec (23.4-35.0) 05/04/25 17:53
Sodium 137 mmol/L (135-145) 05/05/25 06:41
Potassium 3.9 mmol/L (3.5-5.1) 05/05/25 06:41
BUN 15 mg/dl (9-20) 05/05/25 06:41
Glucose 102 mg/dl (70-99) H 05/05/25 06:41
Calcium 9.6 mg/dl (8.4-10.2) 05/05/25 06:41
LDL Cholesterol, Calc 46 mg/dl 05/05/25 06:41
[2025-05-05 22:21] LABS: Glucose - Point of Care 110 mg/dl (70-99)
[2025-05-06] VITALS (9 sets, daily range): BP systolic 115–160; BP diastolic 63–88; PULSE 84–85; O2SAT 99
[2025-05-06 07:53] LABS: Glucose - Point of Care 90 mg/dl (70-99)
[2025-05-06] MEDS: PROTONIX 20 MG PO (09:40)
[2025-05-06] MEDS: FARXIGA 5 MG PO (09:40)
[2025-05-06] MEDS: LOW STRENGTH ASPIRIN 81 MG PO (09:41)
[2025-05-06] MEDS: LIPITOR 40 MG PO (09:41)
[2025-05-06] MEDS: PLAVIX 75 MG PO (09:41)
[2025-05-06] MEDS: VIBRAMYCIN 100 MG PO ×2 (09:41→20:39)
--- NOTE | 2025-05-06 10:46 | PTOTSP ---
Dysphagia Evaluation:
Pt presents w/ acute left frontal lobe and left dominga CVA and hx of prior CVAs. Bedside swallow evaluation was completed given acute and chronic risk factors. It is recommended that pt resumes Regulars, Thins diet as no overt s/sx of aspiration
observed at the bedside, pt is on room air, WBC = 6.8, and no difficulty reported w/ swallowing.
Recommendations:
1. Regulars, Thins
2. Medications as best tolerated
3. Strategies: Slow rate, limit distractions
4. F/U w/ ST if change in diet level tolerance/pt presentation and for further cognitive-linguistic assessment.
[2025-05-06 12:24] LABS: Glucose - Point of Care 118 mg/dl (70-99)
--- NOTE | 2025-05-06 14:09 | W.PN.HOSP.TC ---
Today's Communication/Plan
-
Continue with DAPT
Continue with statins
Continue with PT OT eval
Consult cardiology
Assessment / Plan
Assessment / Plan
Acute left pontine stroke
Acute subcortical white matter lacunar infarct in the posterior lateral left frontal lobe
Resolved expressive Aphasia
No motor weakness. CT of the head and CT angiogram did not show any evidence of stroke, bleeding or large vessel occlusion on admission.
- Blood pressure under goal, hemoglobin A1c 5.5, and LDL 46
-Unclear etiology of his recurrent ischemic infarcts.
-Denied a modifiable risk factors
-Continue aspirin and Plavix
-Patient previously had bubble study and has Linq monitor-consult cardiology for evaluation of the monitor. Check an echocardiogram
- Continue with PT/OT/speech eval
Mobitz type I AV block-monitor here shows what I feel is Mobitz type I AV block. Consult cardiology and interrogate the Linq device.
Diabetes Mellitus, Type II
- Resume metformin
-Continue Farxiga
-Continue Lantus
-Patient also maintained on Ozempic as outpatient
-Monitor sugars and continue coverage insulin
Hyperlipidemia
-Continue atorvastatin
Chronic Osteomyelitis of Left Foot
-Continue doxycycline
DVT proph: SCDS
Code Status: Full Code
Discussed with at bedside
Discussed with neurology
Total time spent on today's encounter was 52 minutes which included time spent in counseling the patient/family regarding diagnosis and treatment plan as listed above, goals of care, and symptom management. Case was discussed with nursing staff,
specialists, and care coordinators/case management. All labs and imaging personally reviewed by me. Remainder the time spent in detailed review of previous records, lab data, imaging, and other medical provider documentation.
Portions of this chart may have been created with voice recognition software. Occasional wrong word or 'sound alike' substitutions may have occurred due to the inherent limitations of voice recognition software.
Anticipated Discharge: 24 - 48 hours
Subjective/Interval History
-
Date of Service: May 06, 2025
Resolved speech impairment. Denies any limb weakness. No headache.
notices his hearing is not as sharp with his hearing aids now.
Objective Data
-
Vital Signs:
Vital Signs
Temp Pulse Resp BP Pulse Ox
98.6 F 91 20 132/88 100
05/06/25 11:54 05/06/25 11:54 05/06/25 11:54 05/06/25 11:54 05/06/25 11:54
I&O
05/05/25 05/06/25 05/07/25
06:59 06:59 06:59
Intake Total 0 / 0 1200 / 1200
Output Total 250 / 250
Balance -250 / -250 1200 / 1200
Physical Exam
-
General: Comfortable
Respiratory: Non Labored Respirations; Negative Accessory Resp Muscle Use
Cardiac: Regular Rhythm and S1/S2; Negative Tachycardic
GI: Soft
Neuro: AO x 3, No Motor Deficits and Other (hard of hearing)
Psych: Calm; Negative Confused
Data Reviewed
-
MRI: Report Reviewed by me (mri brain ;mra head and neck)
Labs: Labs Reviewed by me
--- NOTE | 2025-05-06 14:51 | CON.CAR ---
Addendum entered and electronically signed by Maikel Ruiz MD 05/06/25 15:46:
I saw and examined the patient.
The Metal Shaping Machine Operator's note was reviewed and I agree with the note.
Comment: Briefly, 64-year-old man past medical history multiple CVAs/TIAs, hypertension, hyperlipidemia, insulin-dependent diabetes, recovered nonischemic cardiomyopathy and M�ni�re's disease who presents with expressive aphasia and also reports to
me intermittent episodes of dizziness. He underwent MRI of the brain last evening which showed two small acute infarcts. Cardiology is of asked to evaluate his telemetry and implanted loop recorder for arrhythmia.
Telemetry reviewed showing episodes of nocturnal bradycardia and second-degree AV block Mobitz type I. Suspect this is related to untreated sleep apnea.
No atrial fibrillation/atrial flutter seen
His implanted loop recorder was remotely interrogated on 05/04/2025 with no evidence of arrhythmia
We will repeat [facility] interrogation today as there is likely a brief time period prior to the stroke which was not evaluated
For completeness transthoracic echocardiogram is being repeated this admission
Rest per Renetta Rodriguez
Original Note:
Consultation
Consultation Request
Date/Time Consultation Performed: 05/06/25
Requesting Provider: Dr. Kraus
Performing Provider: Renetta Rodriguez PA-C for Dr. Ruiz
Reason for Consultation: CVA, r/o arrhythmia
Medical History
-
Chief Complaint: difficulty speaking
History of Present Illness:
Patient is a 64-year-old male with past medical history of CVA/TIAs, hypertension, hyperlipidemia, type 2 diabetes with Charcot arthropathy, nonischemic cardiomyopathy with subsequent improvement, history of M�ni�re's disease, history of left kidney
RCC status post partial left nephrectomy who presents to [facility] due to difficulty speaking. Brain MRI with tiny acute white matter lacunar infarct in the posterolateral left frontal lobe and 4 mm acute lacunar infarct in left dominga. He has a Linq
implant due to history of CVA/TIA of unclear etiology. He is chronically on aspirin and Plavix, and reports he has been compliant with this. He denies feelings of palpitations, shortness of breath. He underwent remote Linq interrogation on
05/04/2025 which showed no A-fib no bradycardia no tachycardia no pauses. Cardiology consulted as also noted to have brief Wenckebach overnight. Patient asymptomatic. He is not on AV paradise blocking agents.
PMH:
History of CVA/TIAs
Status post Linq implant without noted arrhythmias
Hypertension
Hyperlipidemia
Type 2 diabetes
BASHIR on CPAP
Charcot arthropathy
History of nonischemic cardiomyopathy with subsequent recovery of EF
History of M�ni�re's disease
History of renal cell carcinoma left kidney status post left partial nephrectomy
Past Medical History
Past Medical History: Other (in HPI)
Social History
Tobacco: Non-Smoker
Alcohol: Other (rare)
Personal:
Living: With Family
Employment: Retired
Allergies / Home Medications
Allergy/AdvReac Type Severity Reaction Status Date / Time
No Known Allergies Allergy Verified 05/04/25 17:29
�Medication �Instructions �Recorded �Confirmed �Type
atorvastatin 40 mg tablet 40 mg PO DAILY High cholesterol 07/19/16 05/04/25 History
insulin glargine 100 unit/mL (3 20 units SC HS Diabetes 06/23/20 05/04/25 History
mL) subcutaneous pen (Lantus
Solostar U-100 Insulin)
clopidogrel 75 mg tablet 75 mg PO DAILY Blood clot 06/24/20 05/04/25 History
prevention/tx
metformin 500 mg tablet,extended 2,000 mg PO HS Diabetes 10/16/20 05/04/25 History
release 24 hr
cyanocobalamin (vitamin B-12) 500 500 mcg PO DAILY Supplement ##0 01/09/23 05/04/25 History
mcg tablet (Vitamin B-12)
semaglutide 0.25 mg or 0.5 mg (2 1 mg SC HURST Diabetes 01/09/23 05/04/25 History
mg/3 mL) subcutaneous pen injector
(Ozempic)
doxycycline hyclate 100 mg capsule 100 mg PO BID Infection #60 caps 11/12/23 05/04/25 Rx
amitriptyline 25 mg tablet 50 mg PO HS mental health/sleep 05/21/24 05/04/25 History
famotidine 40 mg tablet 40 mg PO HSPRN PRN heartburn 05/21/24 05/04/25 History
pantoprazole 20 mg tablet,delayed 20 mg PO DAILY Gastrointestinal 05/21/24 05/04/25 History
release Issue
aspirin 81 mg chewable tablet 81 mg PO DAILY #30 tabs 05/23/24 05/04/25 Rx
dapagliflozin propanediol 5 mg 5 mg PO DAILY Diabetes 05/04/25 05/04/25 History
tablet (Farxiga)
Review of Systems
-
History Source: Patient and Family
All other systems: Negative unless noted
Physical Exam
Vital Signs
Temp Pulse Resp BP Pulse Ox
98.6 F 91 20 132/88 100
05/06/25 11:54 05/06/25 11:54 05/06/25 11:54 05/06/25 11:54 05/06/25 11:54
Lab Results
05/05/25 06:41
05/05/25 06:41
Troponin I < 0.012 ng/ml 05/04/25 17:53
Physical Exam
General: No Apparent Distress, Comfortable and Other (sitting in chair)
HEENT: Normocephalic, Anicteric and Moist Mucous Membranes
Respiratory: Clear and Non Labored Respirations
Cardiac: S1/S2 and Regular Rhythm
GI: Soft, Non Tender, Non Distended and Normal Bowel Sounds
Musculoskeletal: No Clubbing, No Cyanosis, No Edema and Other (brace to LLE )
Skin: Warm and Dry
Neuro: AO x 3
Impression / Plan
-
Primary Glazier Stained Glass: Dr. Lopez
Assessment:
Presentation with speech difficulty, resolved
Tiny L acute lacunar infarcts x2 on DAPT
History of CVA/TIAs 2015, 2020, 09/11/2023
Right central retinal artery occlusion 2017
History of syncope
History of Linq implant without noted arrhythmias
Hypertension
Hyperlipidemia
Type 2 diabetes
BASHIR on CPAP
Charcot arthropathy
History of nonischemic cardiomyopathy with subsequent recovery of EF
History of M�ni�re's disease
History of renal cell carcinoma left kidney status post left partial nephrectomy
ECHO 05/04/24: TDS, EF 55 to 60%, mild concentric LVH, no significant, interatrial septum intact without evidence of shunt by bubble study
Plan:
-Patient presented with transient episode of speech difficulty on 05/04/25
-brain MRI shows 2 tiny areas of acute lacunar infarct on L. reports has been compliant with asa, plavix as OP
-neuro following
-cardiology consulted to r/o cardioembolic etiology of CVA
-he has linq in place. by review of remote interrogation on 05/04/25 no evidence of tachycardia, bradycardia, pauses, afib. since arrival on my [facility], has been in SR with some intermittent wenckebach overnight (patient with known BASHIR and did
not have his CPAP here). asymptomatic. not on AV paradise blocking agents. repeated [facility] interrogation today, await results
-last echo from 04/2024, will repeat
-d/w patient and at bedside
Data Reviewed
-
EKG: Tracing Personally Visualized and interpreted
Ultrasound: Report Reviewed by me
Medical Tests (Nuc Med, Echo etc): Report Reviewed by me
Labs: Labs Reviewed by me
Old Records: Reviewed
--- NOTE | 2025-05-06 16:50 | W.PN.NEURO.1 ---
Today's Communication / Plan
-
The patient is a 64 years old male with a past medical history of diabetes mellitus, hypertension, hyperlipidemia, obstructive sleep apnea and prior TIA/CVA who presents with speech abnormality. Patient reports that he developed acute onset of
expressive aphasia. He describes words just being all jumbled up, and that his was asking him questions and he was not able to answer. He reports that his speech has improved and he thinks that his speech appears to be back to his baseline.
The CT of the head did not show an acute intracranial abnormality.
The patient appears to have left hemispheric acute infarcts as seen on the MRI of the brain.
MRI of brain: Tiny 2.5 mm acute subcortical white matter lacunar infarct in the posterolateral left frontal lobe and 4 mm acute lacunar infarct in left dominga.
MRA of the head and MRA of neck did not show hemodynamically significant stenosis or occlusion.
An echocardiogram was done that showed a normal left ventricular size and systolic function without regional wall motion abnormalities. The interatrial septum appears to be normal and intact, with no evidence of interatrial shunting.
Aspirin 81 mg daily and Plavix 75 mg daily.
Atorvastatin 40 mg daily.
Follow-up in neurology clinic in 4 weeks after discharge.
Will sign off. Please call if you have any question.
Subjective/Objective
Subjective Data
Date of Service: May 06, 2025
The patient is a 64 years old male with a past medical history of diabetes mellitus, hypertension, hyperlipidemia, obstructive sleep apnea and prior TIA/CVA who presents with speech abnormality. Patient reports that he developed acute onset of
expressive aphasia. He describes words just being all jumbled up, and that his was asking him questions and he was not able to answer. He reports that his speech has improved and he thinks that his speech appears to be back to his baseline.
The CT of the head did not show an acute intracranial abnormality.
The patient appears to have left hemispheric acute infarcts as seen on the MRI of the brain.
MRI of brain: Tiny 2.5 mm acute subcortical white matter lacunar infarct in the posterolateral left frontal lobe and 4 mm acute lacunar infarct in left dominga.
MRA of the head and MRA of neck did not show hemodynamically significant stenosis or occlusion.
An echocardiogram was done that showed a normal left ventricular size and systolic function without regional wall motion abnormalities. The interatrial septum appears to be normal and intact, with no evidence of interatrial shunting.
Aspirin 81 mg daily and Plavix 75 mg daily.
Atorvastatin 40 mg daily.
Follow-up in neurology clinic in 4 weeks after discharge.
Will sign off. Please call if you have any question.
Objective Data
Vital Signs
Temp Pulse Resp BP Pulse Ox
36.4 C 79 16 129/78 100
05/06/25 15:25 05/06/25 15:25 05/06/25 15:25 05/06/25 15:25 05/06/25 15:25
Lab Results
05/05/25 06:41
05/05/25 06:41
PT 13.0 Sec (11.4-14.6) 05/04/25 17:53
INR 0.96 05/04/25 17:53
APTT 29.7 Sec (23.4-35.0) 05/04/25 17:53
Sodium 137 mmol/L (135-145) 05/05/25 06:41
Potassium 3.9 mmol/L (3.5-5.1) 05/05/25 06:41
BUN 15 mg/dl (9-20) 05/05/25 06:41
Glucose 102 mg/dl (70-99) H 05/05/25 06:41
Calcium 9.6 mg/dl (8.4-10.2) 05/05/25 06:41
LDL Cholesterol, Calc 46 mg/dl 05/05/25 06:41
Patient Allergies
No Known Allergies Allergy (Verified 05/04/25 17:29)
[2025-05-06 17:23] LABS: Glucose - Point of Care 112 mg/dl (70-99)
[2025-05-06 21:13] LABS: Glucose - Point of Care 114 mg/dl (70-99)
[2025-05-06] MEDS: ELAVIL 50 MG PO (21:40)
[2025-05-06] MEDS: LANTUS 0.2 UNITS SC (21:40)
[2025-05-07 03:00] VITALS: BP 131/65
[2025-05-07 07:50] VITALS: BP 133/71
[2025-05-07 07:54] LABS: Glucose - Point of Care 101 mg/dl (70-99)
[2025-05-07 08:16] LABS: Blood Urea Nitrogen 19 mg/dl (9-20); Calcium 9.4 mg/dl (8.4-10.2); Carbon Dioxide 27 mmol/L (22-30); Chloride 102 mmol/L (98-107); Estimated Creatinine Clearance 84 ml/min; Glucose 89 mg/dl (70-99); Magnesium 1.8 mg/dl (1.6-2.3); Potassium 3.8 mmol/L (3.5-5.1); Sodium 138 mmol/L (135-145); eGFR > 60.00
[2025-05-07] MEDS: LIPITOR 40 MG PO (08:26)
[2025-05-07] MEDS: VIBRAMYCIN 100 MG PO (08:26)
[2025-05-07] MEDS: PROTONIX 20 MG PO (08:26)
[2025-05-07] MEDS: LOW STRENGTH ASPIRIN 81 MG PO (08:26)
[2025-05-07] MEDS: PLAVIX 75 MG PO (08:26)
[2025-05-07] MEDS: FARXIGA 5 MG PO (08:26)
[2025-05-07 11:35] VITALS: BP 138/78
[2025-05-07 11:50] LABS: Glucose - Point of Care 119 mg/dl (70-99)
--- NOTE | 2025-05-07 13:35 | W.PN.CARDCBS ---
Addendum entered and electronically signed by Reece Gregorio MD 05/07/25 14:26:
I saw and examined the patient.
The PHOTOLITHOGRAPHER or PA's note was reviewed and I agree with the note.
Comment: General: Well developed, well nourished in NAD.
Neck: Supple, no JVD, HJR, carotids +2 B/L, no bruits bilaterally.
Heart: Non displaced PMI, RRR, no murmurs, No S3, S4, no rubs.
Lungs: Clear to auscultation bilaterally, no wheeze, rhonchi, rubs bilaterally,
normal expiratory phase.
Extremities: No clubbing, cyanosis or edema bilaterally.
Neuro: Grossly nonfocal, awake, alert and oriented x3.
Patient Linq monitor has been set up to only detect A-fib for greater than 6 minutes. Cannot exclude shorter episodes of A-fib. Given multiple neurologic events will change Plavix to Eliquis when okay with neurology. Discussed with primary
service and neurology.
Original Note:
Today's Communication / Plan
-
transition DAPT to eliquis when ok per neurology
continue rhythm monitoring through linq
will arrange OP cardiac follow up
Impression / Plan
-
Primary Frame Catcher: Dr. Lopez
Assessment:
Presentation with speech difficulty, resolved
Tiny L acute lacunar infarcts x2 on DAPT
History of CVA/TIAs 2015, 2020, 09/11/2023
Right central retinal artery occlusion 2017
History of syncope
History of Linq implant
Brief AF noted 05/2024 by device interrogation
Hypertension
Hyperlipidemia
Type 2 diabetes
BASHIR on CPAP
Charcot arthropathy
History of nonischemic cardiomyopathy with subsequent recovery of EF
History of M�ni�re's disease
History of renal cell carcinoma left kidney status post left partial nephrectomy
ECHO 05/04/24: TDS, EF 55 to 60%, mild concentric LVH, no significant, interatrial septum intact without evidence of shunt by bubble study
ECHO 05/06/25: TDS, EF normal, mild LVH, no significant valvular abnormalities, no significant changes compared to prior
Plan:
-Patient presented with transient episode of speech difficulty on 05/04/25
-brain MRI shows 2 tiny areas of acute lacunar infarct on L. reports has been compliant with asa, plavix as OP
-neuro following
-review of linq interrogation with 6 minute episode of afib in 05/2024. linq was programmed previously to not warehouse order picker afib less than 6 minutes in duration, reprogrammed so now will warehouse order picker all afib episodes, d/w device rep and office device clinic.
of note total afib burden still <1%.
-in SR on review of tele since admission
-based on above, will plan to start eliquis when ok per neurology. dosing will be 5mg BID given age, weight, Cr.
-echo stable, EF preserved
-will arrange OP cardiac follow up
-d/w hospitalist
Progress Note - Frame Catcher
Subjective
Date of Service: May 07, 2025
denies palpitations, dizziness.
Objective
Labs:
05/05/25 06:41
05/07/25 06:40
Labs
Hgb 15.7 g/dL (13.0-18.0) 05/05/25 06:41
Hct 45.6 % (39.0-52.0) 05/05/25 06:41
Plt Count 182 10^3/uL (130-400) 05/05/25 06:41
PT 13.0 Sec (11.4-14.6) 05/04/25 17:53
INR 0.96 05/04/25 17:53
APTT 29.7 Sec (23.4-35.0) 05/04/25 17:53
Sodium 138 mmol/L (135-145) 05/07/25 06:40
Potassium 3.8 mmol/L (3.5-5.1) 05/07/25 06:40
BUN 19 mg/dl (9-20) 05/07/25 06:40
Creatinine 1.0 mg/dL (0.7-1.3) 05/07/25 06:40
Glucose 89 mg/dl (70-99) 05/07/25 06:40
Troponins
05/04/25
17:53
Troponin I < 0.012
Vital Signs and I&O:
Vital Signs
Temp Pulse Resp BP Pulse Ox
98.0 F 86 16 138/78 98
05/07/25 11:35 05/07/25 11:35 05/07/25 11:35 05/07/25 11:35 05/07/25 11:35
Vital Signs
Temp Pulse Resp BP Pulse Ox
98.0 F 86 16 138/78 98
05/07/25 11:35 05/07/25 11:35 05/07/25 11:35 05/07/25 11:35 05/07/25 11:35
Intake & Output
05/05/25 05/06/25 05/07/25 05/08/25
07:59 07:59 07:59 07:59
Intake Total 0 / 0 1200 / 1200 1340 / 1340
Output Total 250 / 250
Balance -250 / -250 1200 / 1200 1340 / 1340
Physical Exam
Physical Exam
GEN: No distress, awake, alert, oriented x3. sitting in chair
HEENT: supple, anicteric, mmm, eomi
LUNGS: CTA B/L, no wheezes/rales
CV: Reg, S1/S2, no murmur
ABD: soft, BS+, NT/ND
EXT: No cyanosis, clubbing, edema. LLE brace
NEURO: Gross non-focal
SKIN: Warm, pink, dry. No rash
--- NOTE | 2025-05-07 14:12 | W.PN.HOSP.TC ---
Today's Communication/Plan
-
dc home/VN today
Assessment / Plan
Assessment / Plan
Assessment:
Acute left pontine stroke
Acute subcortical white matter lacunar infarct in the posterior lateral left frontal lobe
Resolved expressive Aphasia
No motor weakness. CT of the head and CT angiogram did not show any evidence of stroke, bleeding or large vessel occlusion on admission.
- Device interrogation showed A. Fib 05/2024. Device was coded for events longer than 6 minutes so unsure if further smaller events
- d/w Cards/Neuro; start Eliquis. Stop ASA/Plavix
- continue Statin
- home/VN setup
Mobitz type I AV block-monitor here shows what I feel is Mobitz type I AV block
Diabetes Mellitus, Type II
- Resume metformin
- Continue Farxiga
- Continue Lantus
- Patient also maintained on Ozempic as outpatient
- Monitor sugars and continue coverage insulin
Hyperlipidemia
- continue atorvastatin
Chronic Osteomyelitis of Left Foot
- continue doxycycline
DVT proph: SCDS
Code Status: Full Code
Anticipated Discharge: Today
Subjective/Interval History
-
Date of Service: May 07, 2025
resting comfortably, no complaints at present
Objective Data
-
Labs:
Laboratory Results
05/07/25
06:40
Sodium 138
Potassium 3.8
Chloride 102
Carbon Dioxide 27
BUN 19
Creatinine 1.0
Glucose 89
Calcium 9.4
Vital Signs:
Vital Signs
Temp Pulse Resp BP Pulse Ox
98.0 F 86 16 138/78 98
05/07/25 11:35 05/07/25 11:35 05/07/25 11:35 05/07/25 11:35 05/07/25 11:35
I&O
05/06/25 05/07/25 05/08/25
06:59 06:59 06:59
Intake Total 1200 / 1200 1340 / 1340
Balance 1200 / 1200 1340 / 1340
Physical Exam
-
General: No Apparent Distress
HEENT: Normocephalic and Atraumatic
Respiratory: Negative Wheezes
Cardiac: Regular Rhythm and S1/S2
GI: Soft
Neuro: AO x 3
Psych: Calm
Data Reviewed
-
Total Time Spent with Patient (in minutes): 41
Labs: Labs Reviewed by me
--- NOTE | 2025-05-07 14:21 | W.DCSUMMARY ---
Discharge Summary
Discharge Data
Date of Admission: 05/07/25
Date of Discharge: 05/07/25
-
Pending Results: No
Hospital Course
64 y/o M with prior history of TIA/CVA on DAPT presented to ER on 05/04 with speech abnormality and acute onset expressive aphasia. His CVA workup revealed a Acute subcortical white matter lacunar infarct in the posterior lateral left frontal lobe.
Neurology and Cardiology were consulted. Patient was started on Eliquis after cardiac device interrogation revealed A. Fib. He will be setup with home PT/OT/VN and will f/u with PCP in 1 month along with Neurology. He was discharged home on
05/07/25.
Discharge Plan
-
Patient Disposition: Home with Home Care
Discharge Diagnosis/Procedures: acute CVA. A. fib
Condition: Fair
Diet: Diabetic, Carb Controlled
Activity: As tolerated
Other Services: VN, PT and OT
Referrals:
An Chang PA-C [Specified Professional Personl, Cardiology] - 06/02/25 3:20 pm
Referral Note: You have a cardiology follow-up appointment at the [place] office with Dr. Lopez's physician plastic surgery assistant, An. Please call with questions
Meaghan Saavedra CRNP [Specified Professional Personl, Neurology] - in four to six weeks
Quentin Wesley DO [Family Provider, Internal Medicine] - in one week
Additional Discharge Medication Instructions: ASA/Plavix stopped with Eliquis starting
Prescriptions:
New
Eliquis 5 mg tablet
5 mg PO BID Qty: 60 1RF
Continued
atorvastatin 40 MG tablet
40 mg PO DAILY
insulin glargine [Lantus Solostar U-100 Insulin] 300 UNITS/3 ML insulin pen
20 units SC HS
Patient Comments:
26-32
metformin 500 MG tablet extended release 24 hr
2,000 mg PO HS
cyanocobalamin (vitamin B-12) [Vitamin B-12] 500 mcg Tablet
500 mcg PO DAILY Qty: 0
Ozempic 0.25 mg or 0.5 mg (2 mg/3 mL) Pen Injector
1 mg SC HURST
doxycycline hyclate 100 mg capsule
100 mg PO BID Qty: 60 0RF
famotidine 40 mg tablet
40 mg PO HSPRN PRN (Reason: heartburn)
pantoprazole 20 mg tablet,delayed release (DR/EC)
20 mg PO DAILY
amitriptyline 25 mg tablet
50 mg PO HS
dapagliflozin propanediol [Farxiga] 5 mg Tablet
5 mg PO DAILY
Discontinued
clopidogrel 75 MG tablet
75 mg PO DAILY
aspirin 81 mg Tablet,Chewable
81 mg PO DAILY Qty: 30 0RF
Discharge Orders:
Discharge Patient (As Directed); Ordered 05/07/25
Ordered By: Devon Monroy
Discharge Date and Time
Print Language: YORUBA
--- NOTE | 2025-05-07 15:31 | CM ---
Chart reviewed. Patient will d/c home today
Therapy rec home health. Patient and spouse agreeable to referral to VN
CM consulted for Eliquis insurance coverage. CM called [facility], spoke w/ Debbie. Confirmed that Eliquis is covered at 100%, patient has a zero co pay for 30 day and 90 day supplies.
IMM verbally reviewed, copy provided, copy on chart
[facility]

Plan: Home w/ VN
[2025-05-07 15:40] VITALS: BP 140/84
== END 2025-05-07 16:55 | disposition home health service (06) | DRG 65 ==
LOC: 4 WEST ACU 07:48
PROVIDERS: Internal Medicine; Physician Assistant Medical; ADMITTING PHYSICIAN Internal Medicine; ATTENDING PHYSICIAN Internal Medicine; CONSULT PHYSICIAN Internal Medicine Cardiovascular Disease; CONSULT PHYSICIAN Psychiatry & Neurology Neurology; EMERGENCY PHYSICIAN Emergency Medicine; FAMILY PHYSICIAN Internal Medicine
PROC: 4B02XSZ Measurement of Cardiac Pacemaker, External Approach (ICD-10-PCS; 2025-05-04)
DX: I63.81 Other cerebral infarction due to occlusion or stenosis of small artery (principal); I42.8 Other cardiomyopathies; M86.672 Other chronic osteomyelitis, left ankle and foot; E11.610 Type 2 diabetes mellitus with diabetic neuropathic arthropathy; E11.69 Type 2 diabetes mellitus with other specified complication; R47.01 Aphasia; E78.00 Pure hypercholesterolemia, unspecified; I10 Essential (primary) hypertension; G47.33 Obstructive sleep apnea (adult) (pediatric); H81.09 Meniere's disease, unspecified ear; I44.1 Atrioventricular block, second degree; I48.91 Unspecified atrial fibrillation; Z45.09 Encounter for adjustment and management of other cardiac device; Z79.85 Long-term (current) use of injectable non-insulin antidiabetic drugs; Z79.84 Long term (current) use of oral hypoglycemic drugs; Z79.899 Other long term (current) drug therapy; Z79.4 Long term (current) use of insulin; Z79.82 Long term (current) use of aspirin; Z85.528 Personal history of other malignant neoplasm of kidney; Z90.5 Acquired absence of kidney; Z86.73 Personal history of transient ischemic attack (TIA), and cerebral infarction without residual deficits
CPT/HCPCS: 70450; 70544; 70548; 70551; 80048; 80053; 80061; 82962; 83036; 83735; 84484; 85025; 85027; 85576; 85610; 85730; 92523; 92610; 93005; 93306; 97112; 97116; 97163; 97167; 97535; 99285; A9585

== ENCOUNTER → 2025-07-21 13:18 | Outpatient (REF) | payer MEDICARE, SELFPAY | LOC: RAD 13:18 | PROVIDERS: ATTENDING PHYSICIAN Urology; FAMILY PHYSICIAN Internal Medicine | DX: C64.2 Malignant neoplasm of left kidney, except renal pelvis (principal) | CPT/HCPCS: 71260; 74170; Q9967 ==